=== PATIENT | male | born 1955 | race Caucasian/White ===

== ENCOUNTER 2021-09-10 13:59 | Inpatient (IN) ==
--- NOTE | 2021-09-10 14:20 | Emergency Department Note ---
Impression & Plan Anemia, Acute hyponatremia, Hypomagnesemia, Edema, peripheral ED Provider Note NAME: GUALBERTO LANDA AGE: 66 SEX: M : 1955 ARRIVES VIA: Ambulance INFORMANT: Patient, ED PROVIDER(S): Adam Ayon DO CHIEF COMPLAINT: Weight gain and shortness of breath HPI: The patient is a 66-year-old male who has a history of tobacco use as well as alcohol use who presented to the emergency department for an evaluation of difficulty breathing. The patient states that he has had similar symptoms in the past with weight gain and fluid on the lungs. He denies having any chest pain. He denies having any fever. He denies having any abdominal pain. He does have a history of alcohol use but states he is not drank much over the last 24 hours. He stopped smoking approximately 1 month ago. He denies having any fever or hemoptysis. He states his symptoms were moderate to severe and he had difficulty ambulating because of the severity of his weakness and his leg swelling. He states he also has some difficulty breathing with lying flat. ROS: See above HPI for pertinent positives & negatives. A total of 10 systems reviewed and were otherwise negative. PAST MEDICAL HISTORY: See Below PAST SURGICAL HISTORY: See Below FAMILY HISTORY: See Below SOCIAL HISTORY: See Below HOME MEDICATIONS: See Below ALLERGIES: See Below VITALS: See Below PHYSICAL EXAMINATION: GENERAL: Patient is awake alert in no acute distress patient is resting comfortably and showing no signs of anxiety EYES: The conjunctivae are clear. The pupils are round and reactive. EARS, NOSE, MOUTH AND THROAT: The nose is without any evidence of any deformity. NECK: The neck is nontender and supple. RESPIRATORY: Diminished breath sounds are noted both bases. There is no tachypnea or conversational dyspnea. CARDIOVASCULAR: Tachycardic rate with regular rhythm was noted. There is no definite murmur. mal S2. GASTROINTESTINAL: The abdomen is moderately distended. There is no tenderness guarding rigidity. MUSCULOSKELETAL/EXTREMITIES: There is no evidence of gross deformity full range of motion is noted in the hips and shoulders. SKIN: Chronic venous stasis changes were noted. Pedal edema was noted bilaterally. NEUROLOGIC: Patient is awake alert and oriented x3. Strength is diminished but symmetric. MEDICAL DECISION MAKING: Patient is a 66-year-old male who presented to the emergency department for an evaluation of generalized weakness. The patient reported weight gain and shortness of breath especially with any exertion. He does have a history of alcohol and tobacco use. He denies having any black or bloody bowel movements. I discussed the patient's laboratory and radiographic studies with him. I did discuss rectal exam with the patient. I felt that if he had a GI bleed this was something that should be diagnosed. He refused a rectal exam by me in the emergency department. He states he would notice if he had any rectal bleeding. The patient condition was discussed with the on-call [facility]. I did consent the patient for transfusion and I ordered the blood. Triage Nursing notes reviewed. Prior medical records reviewed Vital Signs: reviewed and remarkable for tachycardia. Differential diagnosis: Infection, dehydration, metabolic abnormality, hypo/hyperglycemia, electrolyte disturbance, anemia, hypoxia, cardiac sources, intracerebral event, toxicologic, neurologic, as well as other pathologies. ER treatment provided: See below Diagnostics interpreted by me: ECG: EKG was obtained in the emergency department. My interpretation is sinus tachycardia at 113 bpm. Low voltage was noted throughout. Nonspecific ST segment abnormalities were noted. No previous tracing was available for comparison. Cardiac Monitoring: An order was placed for continuous cardiac monitoring. The monitor shows a rate of 114 bpm with sinus tachycardia. Laboratory studies: As stated above and show below. Imaging studies: See below Consultation(s): I discussed this case with Dr. Agudelo who is on-call for the [facility] group. ED COURSE: Procedures: none PDMP:reviewed and no issues Critical Care: I have personally spent greater than 40 minutes of critical care time in the direct management of this patient. This includes bedside care, interpretation of diagnostic studies, and testing, discussion with consultants, patient, and family members, and other required patient management activities. This 40 minutes is in excess of all separately billable procedures. Past Med/Surg History Medical History CHF (congestive heart failure) Hypertension Surgical History History of appendectomy Social History Smoking Status: Former smoker Hx Alcohol Use: Yes Preferred Language: Senegalese Feels Safe at Home: Yes Allergies Allergies Allergy/AdvReac Type Severity Reaction Status Date / Time No Known Allergies Allergy Verified 09/10/21 16:01 Home Meds Home Medications Medication Instructions Recorded Confirmed Otc Nasal Decongestant 2 spry INTRANASAL DAILY PRN 09/10/21 09/10/21 amlodipine 10 mg-benazepril 40 mg 1 cap PO DAILY 09/10/21 09/10/21 capsule clonidine HCl 0.2 mg tablet 0.2 mg PO HS 09/10/21 09/10/21 cyclobenzaprine 10 mg tablet 10 mg PO TID 09/10/21 09/10/21 metoprolol tartrate 50 mg tablet 50 mg PO BID 09/10/21 09/10/21 pantoprazole 40 mg tablet,delayed 40 mg PO DAILY 09/10/21 09/10/21 release spironolactone 25 mg tablet 25 mg PO BID 09/10/21 09/10/21 Results & Data (ED) Vital Signs Vital Signs - 24 hr 09/10/21 13:47 09/10/21 14:09 09/10/21 14:18 Temperature 36.5 C Temperature Source Temporal Artery Scan Pulse Rate 117 H Pulse Rate from SpO2 Sensor Pulse Rhythm Regular Respiratory Rate 14 18 Respiratory Effort / Characteristics Non-Labored Respiratory Depth Normal Respiratory Pattern Regular Blood Pressure 116/65 Blood Pressure Mean 82 Pulse Oximetry 100 98 Oxygen Delivery Method Room Air Room Air Sepsis Recent Fever Within 48 Hours No Sepsis New/Unexplained Change in Mental Status No Sepsis Action Taken by Nursing No Action Required 09/10/21 14:30 09/10/21 15:00 Temperature Temperature Source Pulse Rate 116 H 114 H Pulse Rate from SpO2 Sensor 118 H 114 H Pulse Rhythm Respiratory Rate 20 14 Respiratory Effort / Characteristics Respiratory Depth Respiratory Pattern Blood Pressure 130/73 119/67 Blood Pressure Mean 92 84 Pulse Oximetry 99 99 Oxygen Delivery Method Room Air Sepsis Recent Fever Within 48 Hours Sepsis New/Unexplained Change in Mental Status Sepsis Action Taken by Usp Medications Current Medication List: was personally reviewed by me Laboratory Data Attestation: I reviewed the patient's lab results. Result diagrams: 09/10/21 14:00 09/10/21 14:00 Lab Results 09/10/21 09/10/21 09/10/21 Range/Units 14:00 14:00 14:00 WBC 10.22 (4.8-10.8) K/uL RBC 3.28 L (4.7-6.1) M/uL Hgb 5.8 L* (14.0-18.0) g/dL Hct 21.7 L (42-52) % MCV 66.2 L (80-100) fL MCH 17.7 L (25-34) pg MCHC 26.7 L (32-36) g/dL RDW Std Deviation 48.4 H (36.4-46.3) fL RDW Coeff of Priscilla 20.1 H (11.5-14.5) % Plt Count 341 (130-400) K/uL MPV 9.5 (7.4-10.4) fL Immature Gran % (Auto) 0.5 % Neut % (Auto) 79.8 % Lymph % (Auto) 9.5 % [place] % (Auto) 9.4 % Eos % (Auto) 0.5 % Baso % (Auto) 0.3 % Neut # (Auto) 8.16 H (1.4-6.5) K/uL Lymph # (Auto) 0.97 L (1.2-3.4) K/uL [place] # (Auto) 0.96 H (0.11-0.59) K/uL Eos # (Auto) 0.05 (0-0.5) K/uL Baso # (Auto) 0.03 (0-0.2) K/uL Immature Gran # (Auto) 0.05 H (0.00-0.02) K/uL Polychromasia 1+ Hypochromasia Present Microcytosis Present Ovalocytes 1+ PT 11.3 (9.0-12.0) Seconds INR 1.1 (0.9-1.1) APTT 22.2 (21.0-31.0) Seconds PTT Ratio 0.8 Sodium 123 L (136-145) mmol/L Potassium 5.1 (3.5-5.1) mmol/L Chloride 94 L (98-107) mmol/L Carbon Dioxide 18 L (21-32) mmol/L Anion Gap 11 (3-11) BUN 18 (6-23) mg/dl Creatinine 1.66 H (0.6-1.4) mg/dl Est Cr Clr Drug Dosing 70.1 ml/min Est GFR ( Amer) 49.0 ml/min Est GFR (Non-Af Amer) 42.3 ml/min BUN/Creatinine Ratio 10.8 (10-20) Glucose 102 H (70-99(Fasting)) mg/dl Osmolality (280-300) mOsm/kg Calcium 9.0 (8.5-10.1) mg/dl Magnesium 1.3 L (1.7-2.4) mg/dl Total Bilirubin 0.3 (0.2-1.0) mg/dl AST 19 (13-39) U/L ALT 11 (7-52) U/L Alkaline Phosphatase 97 (34-104) U/L Troponin I High Sens 6.6 (0-20) pg/ml Total Protein 7.5 (6.0-8.3) gm/dl Albumin 3.6 (3.4-5.0) gm/dl Globulin 3.9 (2.5-4.0) gm/dl Albumin/Globulin Ratio 0.9 (0.9-2) TSH (0.300-4.500) uIu/ml Ethyl Alcohol mg/dL (<10.0) mg/dl 09/10/21 09/10/21 09/10/21 Range/Units 14:00 14:00 14:00 WBC (4.8-10.8) K/uL RBC (4.7-6.1) M/uL Hgb (14.0-18.0) g/dL Hct (42-52) % MCV (80-100) fL MCH (25-34) pg MCHC (32-36) g/dL RDW Std Deviation (36.4-46.3) fL RDW Coeff of Priscilla (11.5-14.5) % Plt Count (130-400) K/uL MPV (7.4-10.4) fL Immature Gran % (Auto) % Neut % (Auto) % Lymph % (Auto) % [place] % (Auto) % Eos % (Auto) % Baso % (Auto) % Neut # (Auto) (1.4-6.5) K/uL Lymph # (Auto) (1.2-3.4) K/uL [place] # (Auto) (0.11-0.59) K/uL Eos # (Auto) (0-0.5) K/uL Baso # (Auto) (0-0.2) K/uL Immature Gran # (Auto) (0.00-0.02) K/uL Polychromasia Hypochromasia Microcytosis Ovalocytes PT (9.0-12.0) Seconds INR (0.9-1.1) APTT (21.0-31.0) Seconds PTT Ratio Sodium (136-145) mmol/L Potassium (3.5-5.1) mmol/L Chloride (98-107) mmol/L Carbon Dioxide (21-32) mmol/L Anion Gap (3-11) BUN (6-23) mg/dl Creatinine (0.6-1.4) mg/dl Est Cr Clr Drug Dosing ml/min Est GFR ( Amer) ml/min Est GFR (Non-Af Amer) ml/min BUN/Creatinine Ratio (10-20) Glucose (70-99(Fasting)) mg/dl Osmolality 268 L (280-300) mOsm/kg Calcium (8.5-10.1) mg/dl Magnesium (1.7-2.4) mg/dl Total Bilirubin (0.2-1.0) mg/dl AST (13-39) U/L ALT (7-52) U/L Alkaline Phosphatase (34-104) U/L Troponin I High Sens (0-20) pg/ml Total Protein (6.0-8.3) gm/dl Albumin (3.4-5.0) gm/dl Globulin (2.5-4.0) gm/dl Albumin/Globulin Ratio (0.9-2) TSH 2.881 (0.300-4.500) uIu/ml Ethyl Alcohol mg/dL < 10.0 (<10.0) mg/dl Administered Medications Discontinued Medications Thiamine HCl 200 mg/ Sodium (Chloride) 52 mls @ 208 mls/hr IV NOW STA Stop: 09/10/21 14:23 Last Infusion: 09/10/21 15:55 Dose: 0 mls/hr Documented by: [id number] Admin: 09/10/21 14:46 Dose: 208 mls/hr Documented by: [id number] Imaging Data Radiologist's Impression: Chest X-Ray 09/10/21 14:18 XR chest 1V portable HISTORY: weakness COMPARISON: None. FINDINGS: The lungs are clear. Cardiac silhouette is mildly enlarged. No pleural effusions. No pneumothorax. IMPRESSION: Mild cardiomegaly. Otherwise, no acute process within the chest. ACT 112: Negative or not required by law. Electronically signed by: Roel Rodrigez M.D. 09/10/2021 3:33 PM Discharge Plan Visit Data Chief Complaint: Weakness ED Provider: Adam Ayon Discharge Problem: Anemia, Acute hyponatremia, Hypomagnesemia, Edema, peripheral Patient Disposition: Being Evaluated by Hospitalist Forms Stand Alone Forms: My [facility] Prescriptions Prescriptions: No Action cyclobenzaprine 10 mg tablet 10 mg PO TID RF: 0 spironolactone 25 mg tablet 25 mg PO BID RF: 0 clonidine HCl 0.2 mg tablet 0.2 mg PO HS RF: 0 pantoprazole 40 mg tablet,delayed release (DR/EC) 40 mg PO DAILY RF: 0 metoprolol tartrate 50 mg tablet 50 mg PO BID RF: 0 amlodipine-benazepril 10-40 mg capsule 1 cap PO DAILY RF: 0 Otc Nasal Decongestant 2 spry intranasal DAILY PRN (Reason: Congestion) RF: 0 Referrals Referrals: Luis Felipe Briscoe [Primary Care Provider] -
[2021-09-10] MEDS ORDERED: THIAMINE HCL 200 MG in SODIUM CHLORIDE 0.9% 50 ML IV STA (14:22)
[2021-09-10 15:13] LABS: INR 1.1 (0.9-1.1); Partial Thromboplastin Ratio 0.8; Partial Thromboplastin Time 22.2 Seconds (21.0-31.0); Prothrombin Time 11.3 Seconds (9.0-12.0)
[2021-09-10 15:29] LABS: Albumin Globulin Ratio 0.9 (0.9-2); Albumin Level 3.6 gm/dl (3.4-5.0); BUN Creatinine Ratio 10.8 (10-20); Bilirubin,Total 0.3 mg/dl (0.2-1.0); Creatinine Clr Calc Pharmacy 70.1 ml/min; Est GFR (Non-African American) 42.3 ml/min; Globulin 3.9 gm/dl (2.5-4.0); Magnesium 1.3 mg/dl (1.7-2.4); Potassium 5.1 mmol/L (3.5-5.1); Total Protein 7.5 gm/dl (6.0-8.3)
[2021-09-10 15:33] LABS: Troponin I High Sensitivity 6.6 pg/ml (0-20)
--- NOTE | 2021-09-10 15:34 | XRay Report ---
XR chest 1V portable HISTORY: weakness COMPARISON: None. FINDINGS: The lungs are clear. Cardiac silhouette is mildly enlarged. No pleural effusions. No pneumo thorax. IMPRESSION: Mild cardiomegaly. Otherwise, no acute process within the chest. ACT 112: Negative or not required by law. Electronically signed by: Roel Rodrigez M.D. 09/10/2021 3:33 PM
[2021-09-10 15:39] LABS: Hematocrit (blood only) 21.7 % (42-52); Hemoglobin 5.8 g/dL (14.0-18.0); Mean Corpuscular Hemoglobin 17.7 pg (25-34); Mean Corpuscular Hgb Conc 26.7 g/dL (32-36); Mean Corpuscular Volume 66.2 fL (80-100); Mean Platelet Volume 9.5 fL (7.4-10.4); Platelet Count 341 K/uL (130-400); RDW Coefficient of Variation 20.1 % (11.5-14.5); RDW Standard Deviation 48.4 fL (36.4-46.3); Red Blood Count 3.28 M/uL (4.7-6.1); White Blood Count 10.22 K/uL (4.8-10.8)
[2021-09-10 15:45] LABS: Basophils # (auto) 0.03 K/uL (0-0.2); Basophils % (auto) 0.3 %; Eosinophils # (auto) 0.05 K/uL (0-0.5); Eosinophils % (auto) 0.5 %; Hypochromasia Present; Immature Granulocytes # (auto) 0.05 K/uL (0.00-0.02); Immature Granulocytes % (auto) 0.5 %; Lymphocytes # (auto) 0.97 K/uL (1.2-3.4); Lymphocytes % (auto) 9.5 %; Microcytosis Present; Monocytes # (auto) 0.96 K/uL (0.11-0.59); Monocytes % (auto) 9.4 %; Neutrophils # (auto) 8.16 K/uL (1.4-6.5); Neutrophils % (auto) 79.8 %; Ovalocytes 1+; Polychromasia 1+
[2021-09-10] MEDS ORDERED: SODIUM CHLORIDE 0.9% 250 ML IV PRN (15:45)
[2021-09-10] MEDS ORDERED: PANTOprazole 40 MG in SYRINGE 0 ML IV ONE (16:03)
[2021-09-10] MEDS ORDERED: FAMOTIDINE 20MG IV PUSH 20 MG/5 ML SYR IV STA (16:03)
[2021-09-10] MEDS: MAGNESIUM SULFATE / D5W 1 GM/100 ML BAG IV SCH ×2 (16:27→17:49)
[2021-09-10] MEDS ORDERED: MAGNESIUM SULFATE / D5W 1 GM/100 ML BAG IV STA (16:36)
[2021-09-10] MEDS ORDERED: FUROSEMIDE INJ 20 MG/2 ML VIAL IV ONE ×2 (16:40→23:48)
--- NOTE | 2021-09-10 17:03 | History & Physical Report ---
Date of Service September 10, 2021 Assessment & Plan (1) Anemia: Plan: Microcytic anemia with MCV 66 DDX: Chronic microcytic anemia secondary to gastritis vs. GI mass vs. other occult GI bleeding versus poor absorption or poor nutrition - CTA of the abdomen and pelvis pending- evaluate for bleeding or mass - BUN normal and without upper GI symptoms endorsed - Continue with Protonix IV BID 40mg - Iron panel pending - Transfuse 2 units of PRBC now- follow hemoglobin and hemodynamics - Diurese in between units and likely need more diuresing tomorrow - Will likely need iron transfusion in the morning following blood - GI consultation for evaluation of EGD/Colonoscopy as he has not had screening done - Currently BP stable and well perfused but is tachycardic (2) Acute hyponatremia: Plan: NA 123 with serum osmo 268 - Mildly symptomatic - Normal TSH - with his lower extremity edema- likely related to hypervolemic hyponatremia - will diurese with 20mg IV Lasix with blood and likely need to repeat in the am - Free water restrict to 1L iter overnight- patient reports that he drinks ~2 liters through the day - Possibly related to ETOH use as well - follow with BMP q 4 hours -Check urine sodium and urine osmolality (3) Hypomagnesemia: Plan: Likely related to poor nutritional intake as well as his low iron levels - replete magnesium 3 gm - follow (4) CHF (congestive heart failure): Plan: Unsure of type as patient is without records and no recall - ECHO in am - Continue his BB- metoprolol 50mg PO twice daily - Hold CCB and PATSY - Continue spironolactone - Lasix as above (5) Stage 3a chronic kidney disease (CKD): Plan: Unsure of chronicity - follow renal function with above resuscitation and diuretic use - HCO3 16 but without an acidosis and without gap- follow HCO3 in am (6) Venous stasis: Plan: Chronic with venous stasis ulcerations of bilateral lower extremities - diurese as above (7) Withdrawal syndrome: Plan: Patient with tachycardia, hyponatremia, and tremors - ETOH level <10 - Although he has reasons to explain majority of these will add CIWA coverage with Ativan for score >6 - Continue with Thiamine and Folate (8) Morbid obesity: Plan: Walks with walker- this is greatly increasing his overall cardiac mortality - weight loss management and education - following his GI evaluation and his overall reported reduced intake- nutritional consolation would be appropriate History of Present Illness Primary Care Provider: Luis Felipe Briscoe 66 yom with no PCP and has not had medical care in over 4 years. Patient with medical history of, HF, ascites with paracentesis, anemia, morbid obesity, ambulates with walker. Patient comes to the emergency department today via EMS for concerns of increase in dyspnea, tremors, and feeling overtly weak. The patient endorses that this has been ongoing over the past 3 days. In the EMD the patient had routine labs performed, CXR, ECG. His labs revealed HGB of 5.8 with microcytosis, normal LFTs, normal INR, hypomag, hyponatremia, and low HC03. He was type and crossed and consented for blood by EMD with 2 units to transfuse, given thiamine, some magnesium and Protonix. Hospitalist was consulted for admission. Patient is tachycardic with visible hand tremors, he states that drinks 2-3 drinks most nights, but has gone days before without any and has not had any problems with withdraw. The patient endorses that he has not had any diarrhea or dark bowel movements, denies any nausea or vomiting of blood. He does have a decrease in appetite over the past 2 weeks secondary to food not tasting good and feeling tired while eating. He states that he has only been eating once per day. The patient will be admitted to PCU, will send off iron panel and Folate levels, continue with 2-3 units of PRBC transfusion overnight. Will diurese with 20mg of Lasix and FREE WATER restrict the patient overnight for his hyponatremia which appears to be hypervolemic hyponatremia at this time. He has not voided so urine labs are pending and he declines rectal exam. Will obtain CTA of the abdomen and pelvis and evaluate for occult bleeding and/or mass. He has never had an EGD and again declines any colonoscopy discussion. Patient COVID test on admission is: NEGATIVE Allergies Allergy/AdvReac Type Severity Reaction Status Date / Time No Known Allergies Allergy Verified 09/10/21 16:01 Home Medications Medication Instructions Recorded Confirmed Type Otc Nasal Decongestant 2 spry INTRANASAL DAILY PRN 09/10/21 09/10/21 History amlodipine 10 mg-benazepril 40 mg 1 cap PO DAILY 09/10/21 09/10/21 History capsule clonidine HCl 0.2 mg tablet 0.2 mg PO HS 09/10/21 09/10/21 History cyclobenzaprine 10 mg tablet 10 mg PO TID 09/10/21 09/10/21 History metoprolol tartrate 50 mg tablet 50 mg PO BID 09/10/21 09/10/21 History pantoprazole 40 mg tablet,delayed 40 mg PO DAILY 09/10/21 09/10/21 History release spironolactone 25 mg tablet 25 mg PO BID 09/10/21 09/10/21 History Past Med/Surg History Medical History (Updated 09/10/21 @ 17:54 by LEOBARDO Macias) Ascites CHF (congestive heart failure) Hypertension Obesity Transfusion history Surgical History History of appendectomy Family History Other Family history non-contributory Social History Smoking Status: Former smoker Hx Alcohol Use: Yes Preferred Language: Azeri Feels Safe at Home: Yes Review of Systems Review of Systems: REVIEW OF SYSTEMS: Constitutional: No fever, sweats or chills Eyes: No diplopia, no worsening or blurred vision ENT: normal hearing, no trouble swallowing Respiratory:(+) dyspnea at rest or on exertion, No cough, sputum, Cardiovascular: No chest pain, tightness or palpitations Abdomen: No pain, nausea, vomiting, diarrhea or constipation Musculoskeletal: No joint pain, calf pain, swelling Neurologic: (+) chronic walks with walker weakness, numbness/tingling, or balance problems Psychiatric: No anxiety or depression Skin: No rash or itch Physical Exam Physical Exam: PHYSICAL EXAM: General: awake, alert, no apparent distress Head: Normocephalic, atraumatic ENT: PERRLA, EOMI, no pharyngeal exudate, mucous membranes moist, conjunctiva pale Neuro: AAO x 3, speech clear and appropriate, strength intact bilaterally 5/5, sensation intact and equal all extremities and dermatomes, no pronator drift Chest: equal rise and fall of the chest, no accessory muscle use, difficult assessment secondary to body habitus, moving good air throughout Cardiac: Regular and rhythm, telemetry reviewed- sinus tach without ectopy, skin warm dry, cap refill <3 seconds, peripheral pulses +2 no JVD, no murmur, + 3 edema to feet and ankles GI: NABS x 4 quadrants, soft, tender to palpation around liver, no rebound, guarding or tenderness no epigastric pain : Spontaneously voiding, no pain, no CVA tenderness, Psych: Normal mood and affect Skin: no rash or erythema Results & Data Results & Data ([facility]) Vital Signs (Past 12 Hours) Vital Signs Temp Pulse Resp BP Pulse Ox 09/10/21 15:00 114 H 14 119/67 99 09/10/21 14:30 116 H 20 130/73 99 09/10/21 14:18 98 09/10/21 14:09 18 09/10/21 13:47 36.5 C 117 H 14 116/65 100 Laboratory Results Abnormal lab results 09/10/21 09/10/21 09/10/21 Range/Units 14:00 14:00 14:00 RBC 3.28 L (4.7-6.1) M/uL Hgb 5.8 L* (14.0-18.0) g/dL Hct 21.7 L (42-52) % MCV 66.2 L (80-100) fL MCH 17.7 L (25-34) pg MCHC 26.7 L (32-36) g/dL RDW Std Deviation 48.4 H (36.4-46.3) fL RDW Coeff of Priscilla 20.1 H (11.5-14.5) % Neut # (Auto) 8.16 H (1.4-6.5) K/uL Lymph # (Auto) 0.97 L (1.2-3.4) K/uL [place] # (Auto) 0.96 H (0.11-0.59) K/uL Immature Gran # (Auto) 0.05 H (0.00-0.02) K/uL Sodium 123 L (136-145) mmol/L Chloride 94 L (98-107) mmol/L Carbon Dioxide 18 L (21-32) mmol/L Creatinine 1.66 H (0.6-1.4) mg/dl Glucose 102 H (70-99(Fasting)) mg/dl Osmolality 268 L (280-300) mOsm/kg Magnesium 1.3 L (1.7-2.4) mg/dl Iron (35-175) mcg/dl TIBC (250-450) mcg/dl Unsaturated IBC (155-355) mcg/dl Transferrin % Sat (20-50) % Crossmatch 09/10/21 09/10/21 Range/Units 14:00 16:33 RBC (4.7-6.1) M/uL Hgb (14.0-18.0) g/dL Hct (42-52) % MCV (80-100) fL MCH (25-34) pg MCHC (32-36) g/dL RDW Std Deviation (36.4-46.3) fL RDW Coeff of Priscilla (11.5-14.5) % Neut # (Auto) (1.4-6.5) K/uL Lymph # (Auto) (1.2-3.4) K/uL [place] # (Auto) (0.11-0.59) K/uL Immature Gran # (Auto) (0.00-0.02) K/uL Sodium (136-145) mmol/L Chloride (98-107) mmol/L Carbon Dioxide (21-32) mmol/L Creatinine (0.6-1.4) mg/dl Glucose (70-99(Fasting)) mg/dl Osmolality (280-300) mOsm/kg Magnesium (1.7-2.4) mg/dl Iron 19 L (35-175) mcg/dl TIBC 581 H (250-450) mcg/dl Unsaturated IBC 562 H (155-355) mcg/dl Transferrin % Sat 3 L (20-50) % Crossmatch See Detail Diagnostic Findings Chest X-Ray 09/10/21 14:18 XR chest 1V portable HISTORY: weakness COMPARISON: None. FINDINGS: The lungs are clear. Cardiac silhouette is mildly enlarged. No pleural effusions. No pneumothorax. IMPRESSION: Mild cardiomegaly. Otherwise, no acute process within the chest. ACT 112: Negative or not required by law. Electronically signed by: Roel Rodrigez M.D. 09/10/2021 3:33 PM Medications Administered Discontinued Medications Thiamine HCl 200 mg/ Sodium (Chloride) 52 mls @ 208 mls/hr IV NOW STA Stop: 09/10/21 14:23 Last Infusion: 09/10/21 15:55 Dose: 0 mls/hr Documented by: [id number] Admin: 09/10/21 14:46 Dose: 208 mls/hr Documented by: [id number] Magnesium Sulfate/Dextrose (Magnesium Sulfate / D5w) 1 gm in 100 mls @ 100 mls/hr IV Q1H KHOI Stop: 09/10/21 17:31 Last Admin: 09/10/21 16:27 Dose: 100 mls/hr Documented by: [id number] Famotidine (Pepcid 20mg Iv Push) 20 mg in 5 mls @ 2.5 mls/min IV NOW STA Stop: 09/10/21 16:04 Last Admin: 09/10/21 16:27 Dose: 2.5 mls/min Documented by: [id number] Home Medications Otc Nasal Decongestant 2 spry INTRANASAL DAILY PRN 09/10/21 [History Confirmed 09/10/21] amlodipine 10 mg-benazepril 40 mg capsule 1 cap PO DAILY 09/10/21 [History Confirmed 09/10/21] clonidine HCl 0.2 mg tablet 0.2 mg PO HS 09/10/21 [History Confirmed 09/10/21] cyclobenzaprine 10 mg tablet 10 mg PO TID 09/10/21 [History Confirmed 09/10/21] metoprolol tartrate 50 mg tablet 50 mg PO BID 09/10/21 [History Confirmed 09/10/21] pantoprazole 40 mg tablet,delayed release 40 mg PO DAILY 09/10/21 [History Confirmed 09/10/21] spironolactone 25 mg tablet 25 mg PO BID 09/10/21 [History Confirmed 09/10/21] Active Medications Sodium Chloride (Nss) 250 mls @ 15 mls/hr IV .[id number] PRN PRN Reason: For Transfusion Stop: 09/11/21 01:46 Magnesium Sulfate/Dextrose (Magnesium Sulfate / D5w) 1 gm in 100 mls @ 50 mls/hr IV Q2H STA Stop: 09/10/21 18:35 ECG Additional Comments: Sinus tachycardia with 1st degree A-V block Otherwise normal ECG No previous ECGs available Code Status & VTE Plan Code Status CODE: FULL VTE: SCDS, hold chemoprophylaxis until bleeding rulled out VTE Prophylaxis Plan VTE Prophylaxis will be ordered: Yes Supervising Physician Co-Signing Physician Notes [employer] Supervision note: I have personally seen and examined the patient and discussed and verified the ward points of the history and physical along with the plan with LEOBARDO Gauthier with the following exceptions and/or additions: This patient is a 66-year-old male with history of HTN, alcohol use disorder, ascites, CHF of unknown type, morbid obesity, who presents here with worsening weakness and shortness of breath and shakiness. He was found have a hemoglobin of 5.8. He reports he has had transfusions in the past and had ascites removed with diuretics and paracentesis. He reports in the past he lost 100 pounds of fluid weight several years ago during hospitalization. He reports he has been told he has liver problems since the 1980s. History ROS reviewed as above Vitals reviewed Gen: [AAOx3, NAD, morbidly obese HEENT: Anicteric sclerae, EOMI CV: Regular rhythm, tachycardic, no mgr nl S1S2 Pulm: CTAB no wcr Abd: +BS soft NT ND positive hepatomegaly to 4 inches below the costal margin, no hernias Ext: 2+ pitting edema in the legs bilaterally, 2+ DP pulses Skin: Spider angiomas all over trunk, warm/dry Neuro: Full strength throughout Labs and rads reviewed 66-year-old male here with severe symptomatic anemia Transfuse GI evaluation Watch for alcohol withdrawal and treat with lorazepam as needed Also with significant volume overload thought to be secondary to either CHF or cirrhosis-diuresed With a hyponatremia also likely secondary to volume overload PG Care Time/CCT Total # of Minutes Spent Total Time Spent with Patient: Total time spent is greater than 50% in coordination of care (as documented) at patient's floor/unit and/or counseling patient: Coding Level of Care Code 83477 Initial Inpt Care Lvl 3 Diagnoses Anemia D64.9 Anemia type: unspecified type Acute hyponatremia E87.1 Hypomagnesemia E83.42 CHF (congestive heart failure) I50.9 Stage 3a chronic kidney disease (CKD) N18.31 Withdrawal syndrome F19.239 Morbid obesity E66.01 Venous stasis I87.8 (1) Anemia Anemia type: unspecified type Qualified Code(s): D64.9 - Anemia, unspecified
[2021-09-10 17:13] LABS: Iron 19 mcg/dl (35-175); Total Iron Binding Cap Calc 581 mcg/dl (250-450); Transferrin (FE) Percent Satur 3 % (20-50); Unsaturated Iron Binding Cap 562 mcg/dl (155-355)
[2021-09-10 17:31] LABS: Base Excess VBG -4.4 mEq/L; pH VBG 7.4 (7.36-7.41)
[2021-09-10 18:11] LABS: Appearance Urine Clear (Clear); Bilirubin Urine Negative (Negative); Blood Urine Negative (Negative); Color Urine Yellow; Glucose Urine UA Negative (Negative); Ketones Urine Negative (Negative); Leukocyte Esterase Urine Negative (Negative); Nitrite Urine Negative (Negative); Protein Urine Negative (Negative); Specific Gravity Urine 1.008 (1.000-1.030); Urobilinogen Urine Negative (Negative); pH Urine 5.5 (4.5-7.5)
[2021-09-10] MEDS ORDERED: ONDANSETRON INJ 2 MG/ML 2 ML VIAL IV PRN (20:09)
[2021-09-10] MEDS ORDERED: LORazepam 2 MG/1 ML VIAL IV PRN ×4 (20:09)
[2021-09-10] MEDS ORDERED: ATIVAN IV ALCOHOL WITHDRAWL IV PRN (20:09)
[2021-09-10] MEDS: SPIRONOLACTONE 25 MG TAB PO SCH (21:20)
[2021-09-10] MEDS: CYCLOBENZAPRINE HCL 10 MG TAB PO SCH ×2 (21:21→21:28)
[2021-09-10] MEDS: METOPROLOL TARTRATE 50 MG TAB PO SCH (21:22)
[2021-09-10] MEDS: PANTOprazole 40 MG in SYRINGE 0 ML IV SCH (21:33)
[2021-09-10] MEDS: CYCLOBENZAPRINE HCL 5 MG TAB PO SCH (22:37)
[2021-09-10] MEDS ORDERED: ACETAMINOPHEN 500 MG TAB PO STA (23:03)
[2021-09-10] MEDS ORDERED: OPTIRAY 320 125ml IV ONE (23:22)
[2021-09-11 00:56] LABS: Hemoglobin 6.2 g/dL (14.0-18.0)
[2021-09-11 01:20] LABS: BUN Creatinine Ratio 10.7 (10-20); Calcium 8.9 mg/dl (8.5-10.1); Est GFR (African American) 55.9 ml/min; Est GFR (Non-African American) 48.2 ml/min; Potassium 5.4 mmol/L (3.5-5.1)
[2021-09-11 06:57] LABS: Hematocrit (blood only) 23.6 % (42-52); Hemoglobin 6.9 g/dL (14.0-18.0); Mean Corpuscular Hemoglobin 20.1 pg (25-34); Mean Corpuscular Hgb Conc 29.2 g/dL (32-36); Mean Corpuscular Volume 68.6 fL (80-100); Mean Platelet Volume 8.9 fL (7.4-10.4); Nucleated RBC # (auto) 0.02 K/uL (0-0); Nucleated RBC % (auto) 0.3 %; Platelet Count 262 K/uL (130-400); RDW Coefficient of Variation 22.7 % (11.5-14.5); RDW Standard Deviation 56.9 fL (36.4-46.3); Red Blood Count 3.44 M/uL (4.7-6.1); White Blood Count 7.15 K/uL (4.8-10.8)
[2021-09-11 07:07] LABS: Albumin Level 3.3 gm/dl (3.4-5.0); BUN Creatinine Ratio 10.1 (10-20); Bilirubin Direct 0.2 mg/dl (0-0.2); Bilirubin,Total 0.9 mg/dl (0.2-1.0); Calcium 8.8 mg/dl (8.5-10.1); Creatinine Clr Calc Pharmacy 75.6 ml/min; Est GFR (African American) 55.9 ml/min; Est GFR (Non-African American) 48.2 ml/min; Potassium 4.9 mmol/L (3.5-5.1); Total Protein 6.6 gm/dl (6.0-8.3)
[2021-09-11 07:20] LABS: Basophils # (auto) 0.02 K/uL (0-0.2); Basophils % (auto) 0.3 %; Eosinophils # (auto) 0.02 K/uL (0-0.5); Eosinophils % (auto) 0.3 %; Hypochromasia Present; Immature Granulocytes # (auto) 0.03 K/uL (0.00-0.02); Immature Granulocytes % (auto) 0.4 %; Lymphocytes # (auto) 0.83 K/uL (1.2-3.4); Lymphocytes % (auto) 11.6 %; Microcytosis Present; Monocytes % (auto) 11.2 %; Neutrophils # (auto) 5.45 K/uL (1.4-6.5); Neutrophils % (auto) 76.2 %
[2021-09-11] MEDS ORDERED: SODIUM CHLORIDE 0.9% 250 ML IV PRN (07:26)
[2021-09-11 08:03] LABS: Hematocrit (blood only) 25.5 % (42-52); Hemoglobin 7.5 g/dL (14.0-18.0)
[2021-09-11 08:26] LABS: BUN Creatinine Ratio 10.5 (10-20); Creatinine Clr Calc Pharmacy 78.8 ml/min; Est GFR (African American) 58.7 ml/min; Est GFR (Non-African American) 50.7 ml/min; Potassium 4.8 mmol/L (3.5-5.1)
[2021-09-11] MEDS: CYCLOBENZAPRINE HCL 5 MG TAB PO SCH ×3 (08:45→21:39)
[2021-09-11] MEDS: FOLIC ACID 1 MG TAB PO SCH (08:46)
[2021-09-11] MEDS: METOPROLOL TARTRATE 50 MG TAB PO SCH ×2 (08:47→21:39)
[2021-09-11] MEDS: PANTOprazole 40 MG in SYRINGE 0 ML IV SCH ×2 (08:48→21:39)
[2021-09-11] MEDS: SPIRONOLACTONE 25 MG TAB PO SCH ×2 (08:48→16:42)
[2021-09-11] MEDS: FUROSEMIDE INJ 20 MG/2 ML VIAL IV SCH ×2 (09:01→16:42)
[2021-09-11] MEDS: THIAMINE HCL 300 MG in SODIUM CHLORIDE 0.9% 50 ML IV SCH (09:01)
--- NOTE | 2021-09-11 09:17 | CT Scan Report ---
CT angio abdomen pelvis w con HISTORY: eval for abdominal/rectal mass-GI bleed TECHNIQUE: Multiaxial CT images of the abdomen and pelvis were performed on the intravenous administr ation of 120 cc of Optiray 320 to evaluate the major arterial structures. Maximal intensity projectio n images were also obtained. COMPARISON STUDY: None. FINDINGS: Mild dependent changes seen at the lung bases. No pneumoperitoneum. No pneumatosis. Advance d degenerative changes within the lumbar spine. Mild anterior wedging at L1 may be due to the Schmorl 's nodes or a chronic compression deformity. No acute fractures identified within the visualized osse ous structures. There are old, healed left-sided rib fractures. Suboptimal evaluation of the abdomen and pelvis due to the patient's body habitus and artifact from the right side of the abdomen abutting the gantry. Subtle nodular contour to the liver consistent with mild cirrhosis. There are few small gallstones. No gallbladder wall thickening. The pancreas, spleen, and right adrenal gland are unremar kable. Mild nodular thickening of the left adrenal gland is noted. Mild cortical scarring within the kidneys. No hydronephrosis. There are 2 subcentimeter exophytic hypodense lesion within the lower herrera e of the left kidney with the largest measuring 9 mm. These are technically too small to characterize but statistically represent cysts. No retroperitoneal lymphadenopathy. No pelvic lymphadenopathy. Th e bladder is unremarkable. No pelvic free fluid. No perirectal abscess identified. Colonic diverticul osis. No evidence for acute diverticulitis. No bowel wall thickening or obstruction. The appendix is not identified and likely surgically absent. Mild calcified plaque within the abdominal aorta. No evidence for an abdominal aortic aneurysm or dis section. The iliac and common femoral arteries are patent. Calcified plaque at the origins of the shalonda iac and superior mesenteric arteries without significant stenosis. The inferior mesenteric artery and renal arteries appear patent. There are 2 left renal arteries. IMPRESSION: 1. No bowel wall thickening or obstruction. 2. Colonic diverticulosis. No evidence for acute diverticulitis. 3. No evidence for rectal mass. However, colonoscopy is considered the test of choice if there is con cern for a colorectal lesion. 4. No significant stenosis or occlusion within the aorta, iliac arteries, or major mesenteric vessels . 5. Cirrhotic liver. 6. Cholelithiasis. ACT 112: Negative or not required by law. Electronically signed by: Roel Rodrigez M.D. 09/11/2021 9:16 AM
[2021-09-11] MEDS: ACETAMINOPHEN 325 MG TAB PO PRN ×2 (09:33→16:48)
--- NOTE | 2021-09-11 10:33 | Hospitalist Progress Note ---
Date of Service September 11, 2021 Assessment & Plan (1) Anemia: Plan: This patient is a 66-year-old male with history of HTN, alcohol use disorder, ascites, CHF of unknown type, morbid obesity, who presents here with worsening weakness and shortness of breath and shakiness. He was found have a hemoglobin of 5.8. He reports he has had transfusions in the past and had ascites removed with diuretics and paracentesis at [facility] in 2018. He reports in the past he lost 100 pounds of fluid weight several years ago during that same hospitalization. He reports he has been told he has liver problems since the 1980s. Microcytic anemia with MCV 66, with severe iron deficiency noted on iron studies Iron deficiency anemia secondary to gastritis vs. GI mass vs. other occult GI bleeding versus poor absorption or poor nutrition He denies any melena or hematochezia, no hematuria, no hematemesis or epistaxis. He has never been to this hospital so there are no baseline labs to compare to. CTA of the abdomen and pelvis to evaluate for bleeding or mass is negative BUN normal and without upper GI symptoms endorsed Hemoglobin up to 6.9 after 2 units PRBCs. Still with some mild tachycardia. -Continue with Protonix IV BID 40mg -Transfuse 1 more unit of PRBC today -Give IV Venofer tomorrow morning -Continue to diurese with IV Lasix twice daily today -Okay to advance to clear liquids for today and then n.p.o. after midnight with plan for EGD tomorrow as per my discussion with GI -Patient is refusing colonoscopy (2) Acute hyponatremia: Plan: NA 123 with serum osmo 268 Urine osmolality elevated at 220, urine sodium 47 but is on spironolactone - Mildly symptomatic - Normal TSH -Cortisol not checked but he was hypertensive on arrival so doubt adrenal insufficiency With high urine osmolality and likely falsely high urine sodium, clearly volume overloaded on examination-all points towards decreased effective arterial volume from either hypovolemia from severe anemia plus cirrhosis Sodium improving up to 126 with IV Lasix and PRBC transfusion -Continue Lasix 20 mg IV twice daily -Free water restrict to 1L iter overnight- patient reports that he drinks ~2 liters through the day -Follow BMP in the morning (3) Hypomagnesemia: Plan: Likely related to poor nutritional intake Replaced with 3 g of IV magnesium on admission Follow magnesium level in the morning (4) CHF (congestive heart failure): Plan: Patient reports a history of such. Echocardiogram here with preserved EF He has chronic HFpEF He is clearly volume overloaded on exam Continue blood pressure control with his home metoprolol 50mg PO twice daily - Continue spironolactone - Lasix as above -Continue to hold his home amlodipine/benazepril, clonidine -Daily weights, I's and O's, follow urine output-has Bae catheter in place due to elevated creatinine (5) Stage 3a chronic kidney disease (CKD): Plan: Unsure of chronicity. Creatinine elevated at 1.6 on admission Suspect acute kidney injury in the setting of hypovolemia/prerenal Is now improved to 1.4 after PRBC transfusion and diuretics, also held home benazepril - follow renal function with above resuscitation and diuretic use - HCO3 18 on admission but without an acidosis and without anion gap--serum bicarbonate now normal (6) Venous stasis: Plan: Chronic with venous stasis ulcerations of bilateral lower extremities - diurese as above (7) Withdrawal syndrome: Plan: Patient with tachycardia, hyponatremia, and tremors on admission He reports drinking 2-3 mixed drinks daily - ETOH level <10 on arrival - Although he has reasons to explain majority of these will add CIWA coverage with Ativan for score >6 - Continue with Thiamine and Folate although folate level checked and was normal (8) Morbid obesity: Plan: Walks with walker this is greatly increasing his overall cardiac mortality - weight loss management and education - following his GI evaluation and his overall reported reduced intake- nutrition consultation would be appropriate (9) Cirrhosis: Plan: Noted to have cirrhotic appearing liver on CT abdomen/pelvis He reports being told he had elevated liver enzymes for many decades, however his LFTs here are normal, platelet count is normal, and INR is normal indicating normal synthetic function of the liver Advised to stop drinking alcohol -Follow-up with GI after discharge -Limit Tylenol use to no more than 2000 mg in a day Plan: DVT prophylaxis-avoid chemical prophylaxis due to severe anemia and possibility of GI bleeding. Continue SCDs Disposition-continued stay on telemetry unit due to electrolyte abnormalities and severe anemia Admission and Anticipated Discharge Date Admission Date: September 10, 2021 Subjective Patient reports having headache this morning requesting Tylenol. He is not sure if he feels much stronger as he has not yet been out of bed today. He received 2 units of PRBCs overnight and is getting 1/3 unit today. He denies any bowel movements or blood in the stool. No abdominal pains or nausea. No chest pains. Telemetry with normal sinus rhythm and sinus tachycardia with rates in the 90s to 100s Review of Systems Review of Systems: All systems reviewed & are unremarkable except as noted in HPI & below Physical Exam Physical Exam: Vitals reviewed Gen: AAOx3, NAD, morbidly obese HEENT: Anicteric sclerae, EOMI CV: Regular rhythm, normal rate, no mgr nl S1S2 Pulm: CTAB no wcr Abd: +BS soft NT ND positive hepatomegaly to 4 inches below the costal margin, no hernias Ext: 2+ pitting edema in the legs bilaterally, 2+ DP pulses Skin: Spider angiomas all over trunk, warm/dry Neuro: Full strength throughout -Bae catheter in place draining clear yellow urine Results & Data Results & Data ([facility]) Vital Signs (Past 12 Hours) Vital Signs Temp Pulse Pulse Resp BP BP Pulse Ox 09/11/21 09:40 36.9 C 81 14 172/79 H 97 09/11/21 09:10 36.3 C L 87 16 164/91 H 97 09/11/21 08:55 36.6 C 88 16 164/99 H 96 09/11/21 08:53 36.5 C 92 H 14 168/107 H 98 09/11/21 08:26 36.5 C 94 H 148/89 H 98 09/11/21 07:52 36.6 C 90 18 126/78 98 09/11/21 04:25 88 09/11/21 03:58 36.7 C 88 20 136/72 95 09/11/21 03:36 36.5 C 90 18 143/86 H 98 09/11/21 03:35 36.5 C 90 18 143/86 H 98 09/11/21 02:50 36.8 C 86 18 136/86 97 09/11/21 01:50 36.8 C 85 18 106/71 96 09/11/21 01:20 36.8 C 88 18 123/78 95 09/11/21 01:05 36.9 C 88 18 128/82 97 09/11/21 00:46 36.9 C 94 H 18 118/73 94 09/11/21 00:00 99 H 161/64 H 09/10/21 22:48 36.5 C 88 18 128/72 98 09/10/21 22:47 36.4 C L 88 18 128/72 98 Laboratory Results 09/11/21 09/11/21 09/11/21 Range/Units 07:45 07:45 07:19 WBC (4.8-10.8) K/uL RBC (4.7-6.1) M/uL Hgb 7.5 L (14.0-18.0) g/dL Hct 25.5 L (42-52) % MCV (80-100) fL MCH (25-34) pg MCHC (32-36) g/dL RDW Std Deviation (36.4-46.3) fL RDW Coeff of Priscilla (11.5-14.5) % Plt Count (130-400) K/uL MPV (7.4-10.4) fL Immature Gran % (Auto) % Neut % (Auto) % Lymph % (Auto) % [place] % (Auto) % Eos % (Auto) % Baso % (Auto) % Neut # (Auto) (1.4-6.5) K/uL Lymph # (Auto) (1.2-3.4) K/uL [place] # (Auto) (0.11-0.59) K/uL Eos # (Auto) (0-0.5) K/uL Baso # (Auto) (0-0.2) K/uL Immature Gran # (Auto) (0.00-0.02) K/uL Absolute Nucleated RBC (0-0) K/uL Nucleated RBC % (auto) % Hypochromasia Microcytosis Sodium 126 L (136-145) mmol/L Potassium 4.8 (3.5-5.1) mmol/L Chloride 97 L (98-107) mmol/L Carbon Dioxide 22 (21-32) mmol/L Anion Gap 7 (3-11) BUN 15 (6-23) mg/dl Creatinine 1.43 H (0.6-1.4) mg/dl Est Cr Clr Drug Dosing 78.8 ml/min Est GFR ( Amer) 58.7 ml/min Est GFR (Non-Af Amer) 50.7 ml/min BUN/Creatinine Ratio 10.5 (10-20) Glucose 94 (70-99(Fasting)) mg/dl POC Glucose 109 H (70-99) mg/dl Calcium 9.0 (8.5-10.1) mg/dl Total Bilirubin (0.2-1.0) mg/dl Direct Bilirubin (0-0.2) mg/dl AST (13-39) U/L ALT (7-52) U/L Alkaline Phosphatase (34-104) U/L Total Protein (6.0-8.3) gm/dl Albumin (3.4-5.0) gm/dl Folate (>5.38) ng/ml Urine Color Urine Appearance (Clear) Urine pH (4.5-7.5) Ur Specific [place] (1.000-1.030) Urine Protein (Negative) Urine Glucose (UA) (Negative) Urine Ketones (Negative) Urine Blood (Negative) Urine Nitrite (Negative) Urine Bilirubin (Negative) Urine Urobilinogen (Negative) Ur Leukocyte Esterase (Negative) Urine Osmolality (500-800) mOsm/kg Ur Random Sodium mmol/L Blood Type Antibody Screen Crossmatch 09/11/21 09/11/21 09/11/21 Range/Units 06:04 06:04 06:04 WBC 7.15 (4.8-10.8) K/uL RBC 3.44 L (4.7-6.1) M/uL Hgb 6.9 L* (14.0-18.0) g/dL Hct 23.6 L (42-52) % MCV 68.6 L (80-100) fL MCH 20.1 L (25-34) pg MCHC 29.2 L (32-36) g/dL RDW Std Deviation 56.9 H (36.4-46.3) fL RDW Coeff of Priscilla 22.7 H (11.5-14.5) % Plt Count 262 (130-400) K/uL MPV 8.9 (7.4-10.4) fL Immature Gran % (Auto) 0.4 % Neut % (Auto) 76.2 % Lymph % (Auto) 11.6 % [place] % (Auto) 11.2 % Eos % (Auto) 0.3 % Baso % (Auto) 0.3 % Neut # (Auto) 5.45 (1.4-6.5) K/uL Lymph # (Auto) 0.83 L (1.2-3.4) K/uL [place] # (Auto) 0.80 H (0.11-0.59) K/uL Eos # (Auto) 0.02 (0-0.5) K/uL Baso # (Auto) 0.02 (0-0.2) K/uL Immature Gran # (Auto) 0.03 H (0.00-0.02) K/uL Absolute Nucleated RBC 0.02 H (0-0) K/uL Nucleated RBC % (auto) 0.3 % Hypochromasia Present Microcytosis Present Sodium 127 L (136-145) mmol/L Potassium 4.9 (3.5-5.1) mmol/L Chloride 98 (98-107) mmol/L Carbon Dioxide 23 (21-32) mmol/L Anion Gap 6 (3-11) BUN 15 (6-23) mg/dl Creatinine 1.49 H (0.6-1.4) mg/dl Est Cr Clr Drug Dosing 75.6 ml/min Est GFR ( Amer) 55.9 ml/min Est GFR (Non-Af Amer) 48.2 ml/min BUN/Creatinine Ratio 10.1 (10-20) Glucose 93 (70-99(Fasting)) mg/dl POC Glucose (70-99) mg/dl Calcium 8.8 (8.5-10.1) mg/dl Total Bilirubin 0.9 D (0.2-1.0) mg/dl Direct Bilirubin 0.2 (0-0.2) mg/dl AST 14 (13-39) U/L ALT 9 (7-52) U/L Alkaline Phosphatase 91 (34-104) U/L Total Protein 6.6 (6.0-8.3) gm/dl Albumin 3.3 L (3.4-5.0) gm/dl Folate 7.02 (>5.38) ng/ml Urine Color Urine Appearance (Clear) Urine pH (4.5-7.5) Ur Specific [place] (1.000-1.030) Urine Protein (Negative) Urine Glucose (UA) (Negative) Urine Ketones (Negative) Urine Blood (Negative) Urine Nitrite (Negative) Urine Bilirubin (Negative) Urine Urobilinogen (Negative) Ur Leukocyte Esterase (Negative) Urine Osmolality (500-800) mOsm/kg Ur Random Sodium mmol/L Blood Type Antibody Screen Crossmatch 09/11/21 09/11/21 09/10/21 Range/Units 00:15 00:15 17:45 WBC (4.8-10.8) K/uL RBC (4.7-6.1) M/uL Hgb 6.2 L* (14.0-18.0) g/dL Hct 22.0 L (42-52) % MCV (80-100) fL MCH (25-34) pg MCHC (32-36) g/dL RDW Std Deviation (36.4-46.3) fL RDW Coeff of Priscilla (11.5-14.5) % Plt Count (130-400) K/uL MPV (7.4-10.4) fL Immature Gran % (Auto) % Neut % (Auto) % Lymph % (Auto) % [place] % (Auto) % Eos % (Auto) % Baso % (Auto) % Neut # (Auto) (1.4-6.5) K/uL Lymph # (Auto) (1.2-3.4) K/uL [place] # (Auto) (0.11-0.59) K/uL Eos # (Auto) (0-0.5) K/uL Baso # (Auto) (0-0.2) K/uL Immature Gran # (Auto) (0.00-0.02) K/uL Absolute Nucleated RBC (0-0) K/uL Nucleated RBC % (auto) % Hypochromasia Microcytosis Sodium 124 L (136-145) mmol/L Potassium 5.4 H (3.5-5.1) mmol/L Chloride 94 L (98-107) mmol/L Carbon Dioxide 22 (21-32) mmol/L Anion Gap 8 (3-11) BUN 16 (6-23) mg/dl Creatinine 1.49 H (0.6-1.4) mg/dl Est Cr Clr Drug Dosing 77.0 ml/min Est GFR ( Amer) 55.9 ml/min Est GFR (Non-Af Amer) 48.2 ml/min BUN/Creatinine Ratio 10.7 (10-20) Glucose 99 (70-99(Fasting)) mg/dl POC Glucose (70-99) mg/dl Calcium 8.9 (8.5-10.1) mg/dl Total Bilirubin (0.2-1.0) mg/dl Direct Bilirubin (0-0.2) mg/dl AST (13-39) U/L ALT (7-52) U/L Alkaline Phosphatase (34-104) U/L Total Protein (6.0-8.3) gm/dl Albumin (3.4-5.0) gm/dl Folate (>5.38) ng/ml Urine Color Urine Appearance (Clear) Urine pH (4.5-7.5) Ur Specific [place] (1.000-1.030) Urine Protein (Negative) Urine Glucose (UA) (Negative) Urine Ketones (Negative) Urine Blood (Negative) Urine Nitrite (Negative) Urine Bilirubin (Negative) Urine Urobilinogen (Negative) Ur Leukocyte Esterase (Negative) Urine Osmolality 220 L (500-800) mOsm/kg Ur Random Sodium mmol/L Blood Type Antibody Screen Crossmatch 09/10/21 09/10/21 09/10/21 Range/Units 17:45 17:45 16:33 WBC (4.8-10.8) K/uL RBC (4.7-6.1) M/uL Hgb (14.0-18.0) g/dL Hct (42-52) % MCV (80-100) fL MCH (25-34) pg MCHC (32-36) g/dL RDW Std Deviation (36.4-46.3) fL RDW Coeff of Priscilla (11.5-14.5) % Plt Count (130-400) K/uL MPV (7.4-10.4) fL Immature Gran % (Auto) % Neut % (Auto) % Lymph % (Auto) % [place] % (Auto) % Eos % (Auto) % Baso % (Auto) % Neut # (Auto) (1.4-6.5) K/uL Lymph # (Auto) (1.2-3.4) K/uL [place] # (Auto) (0.11-0.59) K/uL Eos # (Auto) (0-0.5) K/uL Baso # (Auto) (0-0.2) K/uL Immature Gran # (Auto) (0.00-0.02) K/uL Absolute Nucleated RBC (0-0) K/uL Nucleated RBC % (auto) % Hypochromasia Microcytosis Sodium (136-145) mmol/L Potassium (3.5-5.1) mmol/L Chloride (98-107) mmol/L Carbon Dioxide (21-32) mmol/L Anion Gap (3-11) BUN (6-23) mg/dl Creatinine (0.6-1.4) mg/dl Est Cr Clr Drug Dosing ml/min Est GFR ( Amer) ml/min Est GFR (Non-Af Amer) ml/min BUN/Creatinine Ratio (10-20) Glucose (70-99(Fasting)) mg/dl POC Glucose (70-99) mg/dl Calcium (8.5-10.1) mg/dl Total Bilirubin (0.2-1.0) mg/dl Direct Bilirubin (0-0.2) mg/dl AST (13-39) U/L ALT (7-52) U/L Alkaline Phosphatase (34-104) U/L Total Protein (6.0-8.3) gm/dl Albumin (3.4-5.0) gm/dl Folate (>5.38) ng/ml Urine Color Yellow Urine Appearance Clear (Clear) Urine pH 5.5 (4.5-7.5) Ur Specific [place] 1.008 (1.000-1.030) Urine Protein Negative (Negative) Urine Glucose (UA) Negative (Negative) Urine Ketones Negative (Negative) Urine Blood Negative (Negative) Urine Nitrite Negative (Negative) Urine Bilirubin Negative (Negative) Urine Urobilinogen Negative (Negative) Ur Leukocyte Esterase Negative (Negative) Urine Osmolality (500-800) mOsm/kg Ur Random Sodium 47 mmol/L Blood Type A Positive Antibody Screen NEGATIVE Crossmatch See Detail PG Care Time/CCT Total # of Minutes Spent Total Time Spent with Patient: Total time spent is greater than 50% in coordination of care (as documented) at patient's floor/unit and/or counseling patient: Coding Level of Care Code 82389 Subseq Hosp Care Lvl 3 Diagnoses Anemia D64.9 Anemia type: unspecified type Acute hyponatremia E87.1 Hypomagnesemia E83.42 CHF (congestive heart failure) I50.9 Stage 3a chronic kidney disease (CKD) N18.31 Venous stasis I87.8 Withdrawal syndrome F19.239 Morbid obesity E66.01 Cirrhosis K74.60 (1) Anemia Anemia type: unspecified type Qualified Code(s): D64.9 - Anemia, unspecified
--- NOTE | 2021-09-11 11:41 | Electrocardiogram Report ---
Test Reason : Blood Pressure : / mmHG Vent. Rate : 113 BPM Atrial Rate : 113 BPM P-R Int : 214 ms QRS Dur : 102 ms QT Int : 302 ms P-R-T Axes : 045 018 036 degrees QTc Int : 414 ms Poor data quality, interpretation may be adversely affected Sinus tachycardia with 1st degree A-V block RSR' or QR pattern in V1 suggests right ventricular conduction delay Otherwise normal ECG No previous ECGs available Confirmed by Adam Leon ([id number]) on 09/11/2021 11:41:20 AM Referred By: REFERRED SELF Confirmed By:Adam Leon
--- NOTE | 2021-09-11 12:03 | Electrocardiogram Report ---
Test Reason : Blood Pressure : / mmHG Vent. Rate : 089 BPM Atrial Rate : 089 BPM P-R Int : 244 ms QRS Dur : 100 ms QT Int : 360 ms P-R-T Axes : 002 007 023 degrees QTc Int : 438 ms Sinus rhythm with 1st degree A-V block RSR' or QR pattern in V1 suggests right ventricular conduction delay Borderline ECG When compared with ECG of 10-SEP-2021 14:04, (unconfirmed) No significant change was found Confirmed by Adam Leon ([id number]) on 09/11/2021 12:03:18 PM Referred By: REFERRED SELF Confirmed By:Adam Leon
--- NOTE | 2021-09-11 12:44 | XCELERA ---
[id number]
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
[2021-09-12] MEDS: ACETAMINOPHEN 325 MG TAB PO PRN (03:02)
[2021-09-12 06:50] LABS: Hematocrit (blood only) 27.8 % (42-52); Hemoglobin 8.4 g/dL (14.0-18.0); Mean Corpuscular Hemoglobin 21.2 pg (25-34); Mean Corpuscular Hgb Conc 30.2 g/dL (32-36); Mean Corpuscular Volume 70.2 fL (80-100); Mean Platelet Volume 8.9 fL (7.4-10.4); Platelet Count 276 K/uL (130-400); RDW Coefficient of Variation 23.2 % (11.5-14.5); RDW Standard Deviation 59.3 fL (36.4-46.3); Red Blood Count 3.96 M/uL (4.7-6.1)
[2021-09-12 07:13] LABS: Anisocytosis Present; Basophils # (auto) 0.02 K/uL (0-0.2); Basophils % (auto) 0.3 %; Eosinophils # (auto) 0.12 K/uL (0-0.5); Eosinophils % (auto) 1.7 %; Hypochromasia Present; Immature Granulocytes # (auto) 0.04 K/uL (0.00-0.02); Immature Granulocytes % (auto) 0.6 %; Lymphocytes % (auto) 13.9 %; Microcytosis Present; Monocytes # (auto) 0.91 K/uL (0.11-0.59); Monocytes % (auto) 12.6 %; Neutrophils # (auto) 5.11 K/uL (1.4-6.5); Neutrophils % (auto) 70.9 %; Polychromasia 1+
[2021-09-12 07:17] LABS: Albumin Level 3.4 gm/dl (3.4-5.0); BUN Creatinine Ratio 9.6 (10-20); Bilirubin Direct 0.1 mg/dl (0-0.2); Bilirubin,Total 0.7 mg/dl (0.2-1.0); Creatinine Clr Calc Pharmacy 72.2 ml/min; Est GFR (African American) 52.9 ml/min; Est GFR (Non-African American) 45.6 ml/min; Magnesium 1.7 mg/dl (1.7-2.4); Potassium 4.4 mmol/L (3.5-5.1); Total Protein 6.9 gm/dl (6.0-8.3)
[2021-09-12] MEDS: IRON SUCROSE 300 MG in SODIUM CHLORIDE 0.9% 250 ML IV SCH (08:39)
[2021-09-12] MEDS: SPIRONOLACTONE 25 MG TAB PO SCH ×2 (08:39→16:31)
[2021-09-12] MEDS: FUROSEMIDE INJ 20 MG/2 ML VIAL IV SCH ×2 (08:39→16:31)
[2021-09-12] MEDS: FOLIC ACID 1 MG TAB PO SCH (08:39)
[2021-09-12] MEDS: METOPROLOL TARTRATE 50 MG TAB PO SCH ×2 (08:39→20:08)
[2021-09-12] MEDS: THIAMINE HCL 300 MG in SODIUM CHLORIDE 0.9% 50 ML IV SCH (08:40)
--- NOTE | 2021-09-12 09:35 | History & Physical Bridge Note ---
Date of Service September 12, 2021 History & Physical Bridge Note I have examined the patient, reviewed the History & Physical and in the interval since the performance of the History & Physical I have noted the following changes of clinical significance: no changes noted Proceed with EGD. risks/benefits and procedure discussed with patient, who agrees to proceed
[2021-09-12] MEDS: CYCLOBENZAPRINE HCL 5 MG TAB PO SCH ×3 (09:38→20:08)
[2021-09-12] MEDS: PANTOprazole 40 MG in SYRINGE 0 ML IV SCH ×2 (12:47→19:59)
[2021-09-12] MEDS ORDERED: PROPOFOL IV EMULSION 10 MG/ML 20 ML VIAL IV ONE ×2 (14:31→15:21)
[2021-09-12] MEDS ORDERED: LIDOCAINE 2% 2 ML VIAL/AMP(20MG/ML) INFIL ONE ×2 (14:31→15:21)
--- NOTE | 2021-09-12 14:36 | Anesthesiology Consultation ---
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 Nunn - Dean Nunn MD Height/Weight Height: 6 ft 3 in Weight: 147.3 kg Allergies Allergy/AdvReac Type Severity Reaction Status Date / Time No Known Allergies Allergy Verified 09/10/21 16:01 Medications Home Medications Medication Instructions Recorded Confirmed Last Taken Otc Nasal Decongestant 2 spry INTRANASAL DAILY PRN 09/10/21 09/10/21 Unknown amlodipine 10 mg-benazepril 40 mg 1 cap PO DAILY 09/10/21 09/10/21 09/10/21 capsule clonidine HCl 0.2 mg tablet 0.2 mg PO HS 09/10/21 09/10/21 09/09/21 cyclobenzaprine 10 mg tablet 10 mg PO TID 09/10/21 09/10/21 09/10/21 08:00 metoprolol tartrate 50 mg tablet 50 mg PO BID 09/10/21 09/10/21 09/10/21 08:00 pantoprazole 40 mg tablet,delayed 40 mg PO DAILY 09/10/21 09/10/21 09/10/21 release spironolactone 25 mg tablet 25 mg PO BID 09/10/21 09/10/21 09/10/21 08:00 Active Medications Generic Name Dose Route Start Last Admin Trade Name Freq PRN Reason Stop Dose Admin Acetaminophen 650 mg 09/11/21 19:05 09/12/21 03:02 Acetaminophen 325 Mg Tab PO 10/11/21 09:15 650 mg Q8 PRN Administration Pain Cyclobenzaprine HCl 2.5 mg 09/10/21 22:15 09/12/21 13:58 Cyclobenzaprine Hcl 5 Mg Tab PO 10/10/21 22:14 2.5 mg TID KHOI Administration Folic Acid 1 mg 09/11/21 09:00 09/12/21 08:39 Folic Acid 1 Mg Tab PO 10/11/21 08:59 1 mg QAM KHOI Administration Furosemide 20 mg 09/11/21 09:00 09/12/21 08:39 Furosemide Inj 20 Mg/2 Ml Vial IV 10/11/21 08:59 20 mg [id number] KHOI Administration Thiamine HCl 300 mg/ Sodium 53 mls @ 212 mls/hr 09/11/21 09:00 09/12/21 09:10 Chloride IV 10/11/21 08:59 Infused QAM KHOI Infusion Pantoprazole Sodium 40 mg/ 10 mls @ 5 mls/min 09/10/21 21:00 09/12/21 12:47 Syringe IV 10/10/21 20:59 5 mls/min BID KHOI Administration Iron Sucrose 300 mg/ Sodium 265 mls @ 176.667 mls/hr 09/12/21 09:00 09/12/21 10:30 Chloride IV 09/14/21 10:29 Infused DAILY KHOI Infusion Lorazepam 1 mg 09/10/21 20:09 09/11/21 00:01 Lorazepam 2 Mg/1 Ml Vial IV 10/10/21 20:08 1 mg ONE PRN Administration EtoH Withdrawal AWSS 6-10 Protocol Metoprolol Tartrate 50 mg 09/10/21 21:00 09/12/21 08:39 Metoprolol Tartrate 50 Mg Tab PO 10/10/21 20:59 50 mg BID KHOI Administration Spironolactone 25 mg 09/10/21 21:00 09/12/21 08:39 Spironolactone 25 Mg Tab PO 10/10/21 20:59 25 mg [id number] KHOI Administration Past Medical History Medical History (Updated 09/12/21 @ 14:39 by Jono Jones MD) Ascites CHF (congestive heart failure) Encounter for pre-operative examination Hypertension Obesity Transfusion history Past Family History Family History Other Family history non-contributory Past Surgical History Surgical History History of appendectomy Social History Smoking Status: Former smoker tobacco type: cigarettes Smoking cigarettes per day: 10 Do You Dip or Chew Tobacco: No Hx Alcohol Use: Yes Alcohol type: hard liquor alcohol intake frequency: a few times a week Alcohol Intake Frequency Comment: 2-3 drinks per occasion. Hx Substance Use: No Physical Exam Vital Signs Last Vital Signs Temp 37.0 C 09/12/21 11:00 Pulse 80 09/12/21 11:00 Resp 18 09/12/21 11:00 BP 118/74 09/12/21 11:00 Pulse Ox 98 09/12/21 11:00 Testing Laboratory Results 09/12/21 06:05 09/12/21 06:05 PT 11.3 Seconds (9.0-12.0) 09/10/21 14:00 INR 1.1 (0.9-1.1) 09/10/21 14:00 APTT 22.2 Seconds (21.0-31.0) 09/10/21 14:00 Urine Color Yellow 09/10/21 17:45 Urine Appearance Clear (Clear) 09/10/21 17:45 Urine pH 5.5 (4.5-7.5) 09/10/21 17:45 Ur Specific [place] 1.008 (1.000-1.030) 09/10/21 17:45 Urine Protein Negative (Negative) 09/10/21 17:45 Urine Glucose (UA) Negative (Negative) 09/10/21 17:45 Urine Ketones Negative (Negative) 09/10/21 17:45 Urine Nitrite Negative (Negative) 09/10/21 17:45 Ur Leukocyte Esterase Negative (Negative) 09/10/21 17:45 Blood Type A Positive 09/10/21 16:33 Antibody Screen NEGATIVE 09/10/21 16:33 Electrocardiogram Date: 09/12/2112-Sep-2021 06:01:50 [facility] ROUTINE RETRIEVAL Normal sinus rhythm Septal infarct , age undetermined Inferior infarct , age undetermined Abnormal ECG When compared with ECG of 11-SEP-2021 06:12, [place] interval has decreased RSR' pattern in V1 is no longer Present Septal infarct is now Present Inferior infarct is now Present Chest X-Ray Date: 09/10/21 XR chest 1V portable HISTORY: weakness COMPARISON: None. FINDINGS: The lungs are clear. Cardiac silhouette is mildly enlarged. No pleural effusions. No pneumothorax. IMPRESSION: Mild cardiomegaly. Otherwise, no acute process within the chest. Echocardiogram Date: 09/11/21 EF: 60-65% LV Function: normal RWMA: + none
--- NOTE | 2021-09-12 15:33 | GI REPORT ---
Patient Name: Karlos Rea Procedure Date: 09/12/2021 2:49 PM Date of : 1955 Admit Type: Inpatient Age: 66 Gender: Male Attending MD: Dean Nunn MD Procedure: Upper GI endoscopy Providers: Dean Nunn MD Referring MD: Dean Nunn MD Indications: Unexplained iron deficiency anemia Medicines: Monitored Anesthesia Care Complications: No immediate complications. Estimated blood loss: None. Estimated Blood Loss: Estimated blood loss: none. Procedure: Pre-Anesthesia Assessment: - Prior Anticoagulants: The patient has taken no previous anticoagulant or antiplatelet agents. - ASA Grade Assessment: III - A patient with severe systemic disease. After obtaining informed consent, the endoscope was passed under direct vision. Throughout the procedure, the patient's blood pressure, pulse, and oxygen saturations were monitored continuously. The Endoscope was introduced through the mouth, and advanced to the second part of duodenum. The upper GI endoscopy was accomplished without difficulty. The patient tolerated the procedure well. Findings: The examined esophagus was normal. no evidence of varices. Multiple 2 to 4 mm angioectasias with no bleeding were found in the stomach. Coagulation for bleeding prevention using argon plasma at 1.2 liters/minute and 35 pham was successful. Estimated blood loss: none. A few small angioectasias without bleeding were found in the duodenal bulb and in the first portion of the duodenum. Coagulation for bleeding prevention using argon plasma at 1.2 liters/minute and 35 pham was successful. Estimated blood loss: none. Impression: - Normal esophagus. - Multiple non-bleeding angioectasias in the stomach. Treated with argon plasma coagulation (APC). - A few non-bleeding angioectasias in the duodenum. Treated with argon plasma coagulation (APC). - No specimens collected. Recommendation: - Discharge patient to home (with escort). - Resume previous diet today. Dean Nunn MD 09/12/2021 3:33:07 PM This report has been signed electronically. Note Initiated On: 09/12/2021 2:49 PM Number of Addenda: 0 I attest to the content of the Intraoperative Record and orders documented therein, exceptions below {[id number]}
--- NOTE | 2021-09-12 15:35 | Electrocardiogram Report ---
Test Reason : Blood Pressure : / mmHG Vent. Rate : 095 BPM Atrial Rate : 095 BPM P-R Int : 204 ms QRS Dur : 098 ms QT Int : 354 ms P-R-T Axes : 029 -08 018 degrees QTc Int : 444 ms Normal sinus rhythm RSR' or QR pattern in V1 suggests right ventricular conduction delay Abnormal ECG When compared with ECG of 11-SEP-2021 06:12, [place] interval has decreased Confirmed by Adam Leon ([id number]) on 09/12/2021 3:35:42 PM Referred By: REFERRED SELF Confirmed By:Adam Leon
--- NOTE | 2021-09-12 15:42 | Anesthesiology Progress Note ---
Date of Service September 12, 2021 Anesthesia Post Procedure Vital Signs Vital Signs: Temp Pulse Pulse Resp BP BP Pulse Ox 09/12/21 15:24 102 H 24 115/71 97 09/12/21 15:00 92 H 09/12/21 14:39 97.5 F L 18 133/82 96 09/12/21 11:00 98.6 F 80 18 118/74 98 09/12/21 08:00 97.9 F 89 80 20 101/63 98 09/12/21 03:06 97.9 F 90 16 128/76 95 09/12/21 02:22 80 09/11/21 22:40 98.1 F 95 H 18 131/80 95 09/11/21 19:20 98.1 F 87 18 116/67 97 09/11/21 16:22 86 09/11/21 16:17 86 Pain Intensity Generalized: Pain Intensity: 6 Head: Pain Intensity: 5 Bilateral Lower Abdomen: Pain Intensity: 5 Transfer of Care Handoff Completed per policy Notes Mental Status: alert / awake / arousable and participated in evaluation Patient Amnestic to Procedure: Yes Nausea / Vomiting: adequately controlled Pain: adequately controlled Airway Patency, RR, SpO2: stable & adequate BP & HR: stable & adequate Hydration State: stable & adequate Anesthetic Complications: no major complications apparent and Pt Satisfied with anesthetic care
--- NOTE | 2021-09-12 16:54 | Hospitalist Progress Note ---
Date of Service September 12, 2021 Assessment & Plan (1) Anemia: Plan: This patient is a 66-year-old male with history of HTN, alcohol use disorder, ascites, CHF of unknown type, morbid obesity, who presents here with worsening weakness and shortness of breath and shakiness. He was found have a hemoglobin of 5.8. Microcytic anemia with MCV 66, with severe iron deficiency noted on iron studies CTA of the abdomen and pelvis to evaluate for bleeding or mass is negative BUN normal and without upper GI symptoms endorsed Hemoglobin up to 6.9 after 3 units PRBCs. Has been stable since transfusion -Continue with Protonix IV BID 40mg Patient had endoscopy performed 09/12/2021 with angioectasias seen in stomach duodenum treated with argon laser. GI medicine recommends advancing diet moving forward (2) Acute hyponatremia: Plan: NA 123 with serum osmo 268 Urine osmolality elevated at 220, urine sodium 47 but is on spironolactone - Mildly symptomatic - Normal TSH Sodium improving -Continue Lasix 20 mg IV twice daily -Free water restrict to 1L (3) Hypomagnesemia: Plan: Replete (4) CHF (congestive heart failure): Plan: chronic HFpEF He is clearly volume overloaded on exam Continue blood pressure control with his home metoprolol 50mg PO twice daily - Continue spironolactone - Lasix as above -Continue to hold his home amlodipine/benazepril, clonidine -Daily weights, I's and O's, follow urine output-has Bae catheter in place due to elevated creatinine (5) Stage 3a chronic kidney disease (CKD): Plan: Unsure of chronicity. Creatinine elevated at 1.6 on admission (6) Venous stasis: Plan: Chronic with venous stasis ulcerations of bilateral lower extremities - diurese as above (7) Withdrawal syndrome: Plan: Patient with tachycardia, hyponatremia, and tremors on admission He reports drinking 2-3 mixed drinks daily - ETOH level <10 on arrival -No signs of active withdrawal at this time - Continue with Thiamine and Folate although folate level checked and was normal (8) Morbid obesity: Plan: Walks with walker this is greatly increasing his overall cardiac mortality - weight loss management and education - following his GI evaluation and his overall reported reduced intake- nutrition consultation would be appropriate (9) Cirrhosis: Plan: Noted to have cirrhotic appearing liver on CT abdomen/pelvis He reports being told he had elevated liver enzymes for many decades, however his LFTs here are normal, platelet count is normal, and INR is normal indicating normal synthetic function of the liver Advised to stop drinking alcohol -Follow-up with GI after discharge -Limit Tylenol use to no more than 2000 mg in a day Plan: DVT prophylaxis-avoid chemical prophylaxis due to severe anemia and possibility of GI bleeding. Continue SCDs Once hemoglobin is stable advancing diet in the morning may consider discharge to home on 09/13/2021 Admission and Anticipated Discharge Date Admission Date: September 10, 2021 Subjective Patient feels well he complains of being hungry awaiting his EGD He denies any bowel movements or blood in the stool. No abdominal pains or nausea. No chest pains. No arrhythmias on telemetry monitoring Review of Systems Review of Systems: Nonspecific distress noted except for being hungry no headache, no visual changes no speech or swallowing issues no chest pain, pressure or palpitations no shortness of breath, cough or wheezes no abdominal pain, nausea or vomiting, diarrhea or constipation no dysuria, hematuria or frequency no focal joint pain or swelling no back pain, CVA tenderness or radicular pain no bruising, bleeding or rashes no focal signs of weakness or numbness or altered sensation no complaints of anxiety or depression.. Physical Exam Physical Exam: The patient appeared well nourished and normally developed. Vital signs as documented. Head exam is normocephalic atraumatic Neck is without JVD, thyromegaly, or carotid bruits. Lungs are clear to auscultation, no focal loss of breath sounds Cardiac exam, Rhythm is regular.. No murmurs, rubs or gallops. Abdominal exam reveals normal bowel sounds, soft non tender, no masses Extremities are trace to 1+ edema and both pedal pulses are present Neurologic exam is alert and oriented, no focal loss of strength or sensation Skin is with angiomas on skin Psychologically is without concerns for anxiety or depression.. Results & Data Results & Data ([facility]) Vital Signs (Past 12 Hours) Vital Signs Temp Pulse Pulse Resp BP BP Pulse Ox 09/12/21 15:54 89 22 128/73 98 09/12/21 15:39 90 22 132/82 97 09/12/21 15:24 102 H 24 115/71 97 09/12/21 15:00 92 H 09/12/21 14:39 97.5 F L 18 133/82 96 09/12/21 11:00 98.6 F 80 18 118/74 98 09/12/21 08:00 97.9 F 89 80 20 101/63 98 PG Care Time/CCT Total # of Minutes Spent Total Time Spent with Patient: Total time spent is greater than 50% in coordination of care (as documented) at patient's floor/unit and/or counseling patient: Coding Level of Care Code 46519 Subseq Hosp Care Lvl 3 Diagnoses Anemia D64.9 Anemia type: unspecified type Acute hyponatremia E87.1 Hypomagnesemia E83.42 CHF (congestive heart failure) I50.9 Stage 3a chronic kidney disease (CKD) N18.31 Venous stasis I87.8 Withdrawal syndrome F19.239 Morbid obesity E66.01 Cirrhosis K74.60 (1) Anemia Anemia type: unspecified type Qualified Code(s): D64.9 - Anemia, unspecified
[2021-09-13 06:58] LABS: BUN Creatinine Ratio 8.1 (10-20); Calcium 9.1 mg/dl (8.5-10.1); Creatinine Clr Calc Pharmacy 69.3 ml/min; Est GFR (African American) 51.3 ml/min; Est GFR (Non-African American) 44.2 ml/min; Potassium 4.3 mmol/L (3.5-5.1)
[2021-09-13 07:14] LABS: Mean Platelet Volume 9.2 fL (7.4-10.4); Platelet Count 294 K/uL (130-400)
[2021-09-13 07:32] LABS: Hemoglobin 8.7 g/dL (14.0-18.0); Mean Corpuscular Hemoglobin 20.8 pg (25-34); Mean Corpuscular Volume 71.6 fL (80-100); Nucleated RBC # (auto) 0.08 K/uL (0-0); Nucleated RBC % (auto) 0.8 %; RDW Coefficient of Variation 24.5 % (11.5-14.5); RDW Standard Deviation 61.6 fL (36.4-46.3); Red Blood Count 4.19 M/uL (4.7-6.1); White Blood Count 10.88 K/uL (4.8-10.8)
[2021-09-13 07:33] LABS: Anisocytosis Present; Basophils # (auto) 0.03 K/uL (0-0.2); Basophils % (auto) 0.3 %; Eosinophils # (auto) 0.08 K/uL (0-0.5); Eosinophils % (auto) 0.7 %; Hypochromasia Present; Immature Granulocytes # (auto) 0.05 K/uL (0.00-0.02); Immature Granulocytes % (auto) 0.5 %; Lymphocytes # (auto) 1.38 K/uL (1.2-3.4); Lymphocytes % (auto) 12.7 %; Microcytosis Present; Monocytes # (auto) 1.13 K/uL (0.11-0.59); Monocytes % (auto) 10.4 %; Neutrophils # (auto) 8.21 K/uL (1.4-6.5); Neutrophils % (auto) 75.4 %; Polychromasia 1+
[2021-09-13] MEDS: CYCLOBENZAPRINE HCL 5 MG TAB PO SCH ×3 (08:56→21:12)
[2021-09-13] MEDS: FOLIC ACID 1 MG TAB PO SCH (08:58)
[2021-09-13] MEDS: FUROSEMIDE INJ 20 MG/2 ML VIAL IV SCH ×2 (08:58→16:20)
[2021-09-13] MEDS: METOPROLOL TARTRATE 50 MG TAB PO SCH ×2 (09:00→21:11)
[2021-09-13] MEDS: PANTOprazole 40 MG in SYRINGE 0 ML IV SCH (09:00)
[2021-09-13] MEDS: SPIRONOLACTONE 25 MG TAB PO SCH ×2 (09:01→16:21)
[2021-09-13] MEDS: THIAMINE HCL 300 MG in SODIUM CHLORIDE 0.9% 50 ML IV SCH (09:20)
[2021-09-13] MEDS: IRON SUCROSE 300 MG in SODIUM CHLORIDE 0.9% 250 ML IV SCH (09:52)
--- NOTE | 2021-09-13 10:06 | Gastroenterology Progress Note ---
Date of Service September 13, 2021 Assessment & Plan (1) AVM (arteriovenous malformation): Plan: -Continue to monitor H/H -Diet as tolerated -Protonix 40 mg BID Admission and Anticipated Discharge Date Admission Date: September 10, 2021 Subjective Patient is a 66 yo male with anemia. Patient underwent an EGD on 09/12/21 that indicated multiple AVMs. Patient denies abdominal pain/melena. He is eating a liquid diet. H/H 8.7/30.0. Review of Systems Constitutional: no fever and no chills Respiratory: no cough and no dyspnea Cardiovascular: no chest pain Gastrointestinal: no abdominal pain and no melena Physical Exam Constitutional: well developed Respiratory: normal respiratory effort Cardiovascular: Rate/Rhythm: regular rate Gastrointestinal (Abdomen): Inspection/Auscultation: abdomen normal to inspection Results & Data Results & Data ([facility]) Vital Signs (Past 12 Hours) Vital Signs Temp Pulse Pulse Resp BP BP Pulse Ox 09/13/21 07:32 36.9 C 109 H 20 123/77 96 09/13/21 03:03 36.9 C 120 H 21 126/75 93 09/12/21 23:29 36.8 C 96 H 18 117/75 93 09/12/21 23:00 96 H PG Care Time/CCT Total # of Minutes Spent Total Time Spent with Patient: Total time spent is greater than 50% in coordination of care (as documented) at patient's floor/unit and/or counseling patient: Coding Level of Care Code 54505 Subseq Hosp Care Lvl 3 Diagnoses AVM (arteriovenous malformation) Q27.30
[2021-09-13] MEDS ORDERED: OXYBUTYNIN CHLORIDE 5 MG TAB PO STA (14:55)
--- NOTE | 2021-09-13 14:57 | Hospitalist Progress Note ---
Date of Service September 13, 2021 Assessment & Plan (1) Acute blood loss anemia: Plan: presumed 2nd to upper GI bleeding from numerous AVMs of the stomach/duodenum as seen on EGD. s/p APC by Dr Nunn. H/H stable s/p 3 units PRBCs. day #2/3 of Venofer. recheck cbc am. cont PPI bid. diet as tolerated. alcohol abstinence needed. (2) Iron deficiency anemia: Plan: transferrin sat <5%. severe microcytosis. all c/w Fe Def. day #2 of 3 of IV venofer. cbc in am for stability. check B12 level in am for completeness. (3) AVM (arteriovenous malformation): Plan: numerous - stomach, duodenum - as seen on EGD by Dr Nunn. s/p APC. cause of upper GI bleeding - likely acute/chronic. (4) Cirrhosis: Plan: no esophageal varices seen on EGD this admission. cirrhosis 2nd to etoh. can't rule out a component of VIGIL as well. volume status today - compensated. stop IV lasix after tonight's dose. cont aldactone. (5) Obesity: Plan: BMI 38.6 (6) Acute hyponatremia: Plan: repeat BMP in am repeat urine osm + urine Na in am serum Na level has improved with diuresis during the visit (7) Hypomagnesemia: Plan: 2nd to etoh abuse 1.3 at admission - replaced, improved to 1.7 repeat level am for stability (8) Hematuria: Plan: in the setting of recent neves placement u/a today suggestive of UTI send culture start rocephin if urine clears overnight will d/c neves tomorrow pt with bladder spasm from the bleeding - ditropan 5mg po x 1 now (9) UTI (urinary tract infection): Plan: suspected based on ua start IV rocephin urine culture may be cause of new-onset hematuria/clots (10) Alcohol abuse: Plan: thus far no significant signs of etoh withdrawal monitor carefully ativan prn cont thiamine cont folate (11) Hypertension: Plan: in the setting of #1 BPs have been controlled without his usual meds cont metoprolol but HOLD clonidine, hold amlodipine-benazepril hold lasix IV after tonight's dose can cont aldactone BID Plan: patient still needs repeat PT/OT evals to ensure safe for home Admission and Anticipated Discharge Date Admission Date: September 10, 2021 Subjective patient developed mild gross hematuria with clots this afternoon this was associated with bladder spasm and pain he has had a neves since hospital admission prior to this admission did NOT have gross hematuria at home denies any abd pain in the epigastric region no nausea/emesis feeling well and hopeful for d/c home soon tele overnight wnl Review of Systems Review of Systems: gen - feeling well cv - no cp, no orthopnea pulm - no dyspnea at rest; no cough GI - no BRBPR Physical Exam Physical Exam: gen - obese, NAD skin - mild pallor mouth - MMM neck - no JVD heart - RRR, s1 s2 lungs - CTA b/l abd - soft NT ND BS+ ext - no edema, pulses 2 + b/l psych - a/o x 3 Results & Data Results & Data ([facility]) Vital Signs (Past 12 Hours) Vital Signs Temp Pulse Pulse Resp BP BP Pulse Ox 09/13/21 10:36 101 H 09/13/21 07:32 36.9 C 109 H 20 123/77 96 09/13/21 03:03 36.9 C 120 H 21 126/75 93 Laboratory Results Laboratory Results - last 24 hr 09/13/21 09/13/21 05:55 05:55 WBC 10.88 H RBC 4.19 L Hgb 8.7 L Hct 30.0 L MCV 71.6 L MCH 20.8 L MCHC 29.0 L RDW Std Deviation 61.6 H RDW Coeff of Priscilla 24.5 H Plt Count 294 MPV 9.2 Immature Gran % (Auto) 0.5 Neut % (Auto) 75.4 Lymph % (Auto) 12.7 Jennings % (Auto) 10.4 Eos % (Auto) 0.7 Baso % (Auto) 0.3 Neut # (Auto) 8.21 H Lymph # (Auto) 1.38 [place] # (Auto) 1.13 H Eos # (Auto) 0.08 Baso # (Auto) 0.03 Immature Gran # (Auto) 0.05 H Absolute Nucleated RBC 0.08 H Nucleated RBC % (auto) 0.8 Polychromasia 1+ Hypochromasia Present Anisocytosis Present Microcytosis Present Sodium 130 L Potassium 4.3 Chloride 96 L Carbon Dioxide 25 Anion Gap 9 BUN 13 Creatinine 1.60 H Est Cr Clr Drug Dosing 69.3 Est GFR ( Amer) 51.3 Est GFR (Non-Af Amer) 44.2 BUN/Creatinine Ratio 8.1 L Glucose 86 Calcium 9.1 PG Care Time/CCT Total # of Minutes Spent Total Time Spent with Patient: Total time spent is greater than 50% in coordination of care (as documented) at patient's floor/unit and/or counseling patient: Coding Level of Care Code 01082 Subseq Hosp Care Lvl 3 Diagnoses Acute blood loss anemia D62 Iron deficiency anemia D50.9 AVM (arteriovenous malformation) Q27.30 Cirrhosis K74.60 Obesity E66.9 Acute hyponatremia E87.1 Hypomagnesemia E83.42 Hematuria R31.9 UTI (urinary tract infection) N39.0 Alcohol abuse F10.10 Hypertension I10
[2021-09-13 18:29] LABS: Appearance Urine Cloudy (Clear); Bacteria Urine Automated 4+ (Negative); Bilirubin Urine Negative (Negative); Blood Urine 3+ (Negative); Color Urine Orange; Epithelial Cell Urine Auto >30 /lpf (0-5); Glucose Urine UA Negative (Negative); Ketones Urine Negative (Negative); Leukocyte Esterase Urine 3+ (Negative); Nitrite Urine Negative (Negative); Protein Urine 1+ (Negative); RBC Urine Automated >30 /hpf (0-4); Specific Gravity Urine 1.012 (1.000-1.030); Urobilinogen Urine Negative (Negative); WBC Urine Automated >30 /hpf (0-5); pH Urine 6.5 (4.5-7.5)
[2021-09-13 18:57] LABS: Cast Urine Automated 0 /lpf (0-5)
[2021-09-13] MEDS: PANTOprazole 40 MG TAB PO SCH (21:15)
[2021-09-13] MEDS: cefTRIAXone SODIUM 2,000 MG in DEXTROSE 5% 50 ML IV SCH (21:24)
[2021-09-14] MEDS ORDERED: SIMETHICONE 80 MG CHEW PO STA (06:21)
[2021-09-14 06:44] LABS: Creatinine Clr Calc Pharmacy 70.4 ml/min; Est GFR (African American) 52.9 ml/min; Est GFR (Non-African American) 45.6 ml/min; Magnesium 1.5 mg/dl (1.7-2.4); Potassium 3.8 mmol/L (3.5-5.1)
[2021-09-14 08:12] LABS: Hematocrit (blood only) 30.2 % (42-52); Mean Corpuscular Hemoglobin 21.2 pg (25-34); Mean Corpuscular Hgb Conc 29.8 g/dL (32-36); Mean Corpuscular Volume 71.2 fL (80-100); Mean Platelet Volume 9.8 fL (7.4-10.4); Nucleated RBC # (auto) 0.03 K/uL (0-0); Nucleated RBC % (auto) 0.3 %; Platelet Count 308 K/uL (130-400); RDW Coefficient of Variation 25.5 % (11.5-14.5); RDW Standard Deviation 62.9 fL (36.4-46.3); Red Blood Count 4.24 M/uL (4.7-6.1); White Blood Count 11.55 K/uL (4.8-10.8)
[2021-09-14] MEDS: THIAMINE HCL 300 MG in SODIUM CHLORIDE 0.9% 50 ML IV SCH (09:03)
[2021-09-14] MEDS: CYCLOBENZAPRINE HCL 5 MG TAB PO SCH ×3 (09:08→21:25)
[2021-09-14] MEDS: METOPROLOL TARTRATE 50 MG TAB PO SCH (09:10)
[2021-09-14] MEDS: FOLIC ACID 1 MG TAB PO SCH (09:10)
[2021-09-14] MEDS: PANTOprazole 40 MG TAB PO SCH ×2 (09:11→21:24)
[2021-09-14] MEDS: SPIRONOLACTONE 25 MG TAB PO SCH ×2 (09:11→17:15)
[2021-09-14] MEDS: MAGNESIUM SULFATE / D5W 1 GM/100 ML BAG IV SCH ×2 (09:36→11:29)
[2021-09-14] MEDS: IRON SUCROSE 300 MG in SODIUM CHLORIDE 0.9% 250 ML IV SCH (09:37)
[2021-09-14] MEDS: ACETAMINOPHEN 325 MG TAB PO PRN ×2 (09:45→21:23)
--- NOTE | 2021-09-14 15:32 | XRay Report ---
XR abdomen 2V w PA chest CLINICAL HISTORY: bloating; eval fecal load, ileus, etc TECHNIQUE: 2 views of the abdomen were obtained. A single view of the chest was obtained. Comparison: Comparison is made to chest radiograph 09/10/2021 FINDINGS: No lines and tubes are seen. Cardiomegaly is noted. The lungs are clear. No evidence of pleural effus ion or pneumothorax. Degenerative changes are seen in the visualized skeleton. The bowel gas pattern is nonobstructive. A moderate amount of stool is noted within the large bowel. IMPRESSION: Nonobstructive bowel gas pattern. ACT 112: Negative or not required by law. Electronically signed by: Kevin Morales M.D. 09/14/2021 3:31 PM
[2021-09-14] MEDS ORDERED: bisacodyL 10 MG SUPP PR STA (18:24)
--- NOTE | 2021-09-14 20:42 | Hospitalist Progress Note ---
Date of Service September 14, 2021 Assessment & Plan (1) Acute blood loss anemia: Plan: presumed 2nd to upper GI bleeding from numerous AVMs of the stomach/duodenum as seen on EGD. s/p APC by Dr Nunn. H/H stable s/p 3 units PRBCs. day #3 of 3 of Venofer today. recheck cbc am for stability. cont PPI bid. diet as tolerated. alcohol abstinence needed. (2) Iron deficiency anemia: Plan: transferrin sat <5%. severe microcytosis. all c/w Fe Def. day #3 of 3 of IV venofer. cbc in am for stability. checked B12 level - normal. remains on folate supplementation in light of etoh use. (3) AVM (arteriovenous malformation): Plan: numerous - stomach, duodenum - as seen on EGD by Dr Nunn. s/p APC. cause of upper GI bleeding - likely acute/chronic. (4) Cirrhosis: Plan: no esophageal varices seen on EGD this admission. cirrhosis 2nd to etoh. can't rule out a component of VIGIL as well. volume status today remains compensated. IV lasix stopped. if bmp tomorrow is stable start PO lasix 40mg daily. cont aldactone for now. (5) Obesity: Plan: BMI 38 (6) Acute hyponatremia: Plan: repeat BMP in am repeat urine osm today is high; urine Na is high plan to fluid restrict to 1800cc/day and resume lasix 40mg daily (7) Hypomagnesemia: Plan: 2nd to etoh abuse 1.3 at admission - replaced, improved to 1.7 (8) Hematuria: Plan: 2nd to UTI - resolved (9) UTI (urinary tract infection): Plan: suspected based on ua cont IV rocephin day #2 urine culture pending still likely cause of recent hematuria/clots follow culture since hematuria is resolved will d/c pura (10) Alcohol abuse: Plan: thus far no significant signs of etoh withdrawal monitor carefully ativan prn cont thiamine cont folate (11) Hypertension: Plan: in the setting of #1 BPs have been controlled without his usual meds cont metoprolol but HOLD clonidine, hold amlodipine-benazepril hold lasix today can cont aldactone BID (12) PAT (paroxysmal atrial tachycardia): Plan: 3-4 min long episode yesterday am no symptoms will increase beta michael to 75mg BID cont telemetry monitoring Plan: patient still needs repeat PT/OT evals to ensure safe for home and is truly able to ambulate he has been in bed nearly the entire hospital stay Admission and Anticipated Discharge Date Admission Date: September 10, 2021 Subjective no further gross hematuria does feel bloated and tried simethicone without any relief of such no nausea or emesis still able to eat/drink adequately denies dyspnea has not been out of bed - tells me that he won't sit in the current chair that is in room as it is not comfortable he apparently cares for his elderly mother at home? tele overnight wnl, but did have 3-4 minute run yesterday of PAT - perhaps when he was trying to ambulate to the commode Review of Systems Review of Systems: gen - no fever cv - no cp, no orthopnea pulm - no cough, no dyspnea GI - no abd pain but is bloated Physical Exam Physical Exam: gen - obese, NAD mouth - MMM neck - no JVD heart - RRR, s1 s2, no murmur lungs - CTA b/l abd - soft NT ND BS+; large diasthesis recti ext - no edema, pulses 2 + b/l psych - a/o x 3 - neves still in place; urine is clear, no clots, no hematuria psych - a/o x 3 Results & Data Results & Data ([facility]) Vital Signs (Past 12 Hours) Vital Signs Temp Pulse Pulse Resp BP BP Pulse Ox 09/14/21 20:10 36.7 C 113 H 18 117/78 95 09/14/21 16:46 90 09/14/21 16:00 36.7 C 83 16 128/62 97 09/14/21 12:14 36.5 C 79 18 118/63 95 09/14/21 10:40 113 H Laboratory Results Laboratory Results - last 24 hr 09/14/21 09/14/21 09/14/21 06:02 06:02 06:02 WBC 11.55 H RBC 4.24 L Hgb 9.0 L Hct 30.2 L MCV 71.2 L MCH 21.2 L MCHC 29.8 L RDW Std Deviation 62.9 H RDW Coeff of Priscilla 25.5 H Plt Count 308 MPV 9.8 Absolute Nucleated RBC 0.03 H Nucleated RBC % (auto) 0.3 Sodium 129 L Potassium 3.8 Chloride 95 L Carbon Dioxide 24 Anion Gap 10 BUN 14 Creatinine 1.56 H Est Cr Clr Drug Dosing 70.4 Est GFR ( Amer) 52.9 Est GFR (Non-Af Amer) 45.6 BUN/Creatinine Ratio 9.0 L Glucose 105 H Calcium 9.0 Magnesium 1.5 L Vitamin B12 747 Urine Osmolality Ur Random Sodium 09/14/21 09/14/21 11:00 11:00 WBC RBC Hgb Hct MCV MCH MCHC RDW Std Deviation RDW Coeff of Priscilla Plt Count MPV Absolute Nucleated RBC Nucleated RBC % (auto) Sodium Potassium Chloride Carbon Dioxide Anion Gap BUN Creatinine Est Cr Clr Drug Dosing Est GFR ( Amer) Est GFR (Non-Af Amer) BUN/Creatinine Ratio Glucose Calcium Magnesium Vitamin B12 Urine Osmolality 391 L Ur Random Sodium 101 Diagnostic Findings Urine cx still pending PG Care Time/CCT Total # of Minutes Spent Total Time Spent with Patient: Total time spent is greater than 50% in coordination of care (as documented) at patient's floor/unit and/or counseling patient: Coding Level of Care Code 50685 Subseq Hosp Care Lvl 3 Diagnoses Acute blood loss anemia D62 Iron deficiency anemia D50.9 AVM (arteriovenous malformation) Q27.30 Cirrhosis K74.60 Obesity E66.9 Acute hyponatremia E87.1 Hypomagnesemia E83.42 Hematuria R31.9 UTI (urinary tract infection) N39.0 Alcohol abuse F10.10 Hypertension I10 PAT (paroxysmal atrial tachycardia) I47.1
[2021-09-14] MEDS: cefTRIAXone SODIUM 2,000 MG in DEXTROSE 5% 50 ML IV SCH (21:22)
[2021-09-14] MEDS: METOPROLOL TARTRATE 25 MG TAB PO SCH (21:27)
[2021-09-15 06:36] LABS: Hematocrit (blood only) 29.7 % (42-52); Mean Corpuscular Hemoglobin 21.6 pg (25-34); Mean Corpuscular Hgb Conc 30.3 g/dL (32-36); Mean Corpuscular Volume 71.2 fL (80-100); Mean Platelet Volume 9.1 fL (7.4-10.4); Platelet Count 312 K/uL (130-400); RDW Coefficient of Variation 26.1 % (11.5-14.5); RDW Standard Deviation 63.2 fL (36.4-46.3); Red Blood Count 4.17 M/uL (4.7-6.1); White Blood Count 12.11 K/uL (4.8-10.8)
[2021-09-15 07:26] LABS: Calcium 8.7 mg/dl (8.5-10.1); Creatinine Clr Calc Pharmacy 82.2 ml/min; Est GFR (African American) 63.5 ml/min; Est GFR (Non-African American) 54.8 ml/min; Magnesium 1.7 mg/dl (1.7-2.4); Potassium 3.9 mmol/L (3.5-5.1)
[2021-09-15] MEDS: CYCLOBENZAPRINE HCL 5 MG TAB PO SCH ×3 (08:14→21:18)
[2021-09-15] MEDS: METOPROLOL TARTRATE 25 MG TAB PO SCH ×2 (08:14→21:17)
[2021-09-15] MEDS: PANTOprazole 40 MG TAB PO SCH ×2 (08:14→21:18)
[2021-09-15] MEDS: SPIRONOLACTONE 25 MG TAB PO SCH (08:15)
[2021-09-15] MEDS: FOLIC ACID 1 MG TAB PO SCH (08:15)
[2021-09-15] MEDS: POLYETHYLENE (MIRALAX) 17 GM PACK PO SCH (08:21)
[2021-09-15] MEDS: SENNA 8.6 MG TAB PO SCH (08:21)
[2021-09-15] MEDS: THIAMINE HCL 300 MG in SODIUM CHLORIDE 0.9% 50 ML IV SCH (09:07)
[2021-09-15] MEDS ORDERED: FUROSEMIDE 40 MG TAB PO SCH (09:45)
[2021-09-15] MEDS: MAGNESIUM OXIDE 400 MG TAB PO SCH (10:39)
[2021-09-15 15:34] LABS: BUN Creatinine Ratio 7.9 (10-20); Calcium 9.3 mg/dl (8.5-10.1); Creatinine Clr Calc Pharmacy 72.5 ml/min; Est GFR (African American) 54.6 ml/min; Est GFR (Non-African American) 47.1 ml/min; Potassium 4.3 mmol/L (3.5-5.1)
[2021-09-15] MEDS: ACETAMINOPHEN 325 MG TAB PO PRN ×2 (15:36→21:31)
--- NOTE | 2021-09-15 18:57 | Hospitalist Progress Note ---
Date of Service September 15, 2021 Assessment & Plan (1) Acute blood loss anemia: Plan: presumed 2nd to upper GI bleeding from numerous AVMs of the stomach/duodenum as seen on EGD - 09/12/21. s/p APC by Dr Nunn. H/H stable since receiving 3 units PRBCs earlier in the stay. s/p 3 doses of IV venofer while hospitalized. recheck cbc am for stability. cont PPI bid. diet as tolerated. alcohol abstinence needed as heavy etoh will predispose him to repeat episodes of bleeding. (2) Iron deficiency anemia: Plan: transferrin sat <5%. severe microcytosis. all c/w Fe Def. s/p 3 days of IV venofer. cbc in am for stability. checked B12 level - normal. remains on folate supplementation in light of etoh use. (3) AVM (arteriovenous malformation): Plan: numerous - stomach, duodenum - as seen on EGD by Dr Nunn. s/p APC. cause of upper GI bleeding - likely acute/chronic. (4) Cirrhosis: Plan: no esophageal varices seen on EGD this admission. cirrhosis 2nd to etoh. can't rule out a component of VIGIL as well. volume status today remains compensated. no LE edema, no pulm edema, no ascites on recent CT a/p. hold aldactone. place on lasix 40mg po daily (for suspected SIADH, and to maintain euvolemia). (5) Obesity: Plan: BMI 38 (6) Acute hyponatremia: Plan: acute on chronic (suspected) was 123 on day of admission sodium improved s/p several days of IV lasix (previous physician suspected hypervolemia) sodium yesenia to 129 since stopping the lasix, however, his Na level has trended down to 126 this am urine osm is >300; urine Na is high (>100) SIADH?? I placed him on 1800cc fluid restriction and gave lasix 40mg this am -- unfortunately sodium decreased further to 125 with these measures HOLD ALL DIURETICS BMP in am plan for nephrology consult for their opinion check a uric acid level in am as well (7) Hypomagnesemia: Plan: 2nd to etoh abuse 1.3 at admission - replaced, improved to 1.7 (8) Hematuria: Plan: 2nd to UTI - resolved (9) UTI (urinary tract infection): Plan: urine cx with GNR, >[id number] CFU cont IV rocephin day #3 likely cause of recent hematuria/clots follow culture neves has been d/c, no further hematuria, voiding ok today (10) Alcohol abuse: Plan: thus far no significant signs of etoh withdrawal monitor carefully ativan prn cont thiamine cont folate (11) Hypertension: Plan: in the setting of #1 BPs have been controlled without his usual meds cont metoprolol but HOLD clonidine, hold amlodipine-benazepril hold his diuretics due to low sodium (12) PAT (paroxysmal atrial tachycardia): Plan: 3-4 min long episode this week no symptoms increased beta michael to 75mg BID cont telemetry monitoring (13) Constipation: Plan: resolved overnight cont miralax cont senna Plan: cleared by PT/OT to return home need final urine culture results and improvement in Na level before safe discharge Admission and Anticipated Discharge Date Admission Date: September 10, 2021 Subjective "I'm ready to go home doc" he was very disappointed when I told him that his sodium level was trending down and was going to prevent a safe discharge today he had 2 large BMs since yesterday evening and abdominal bloating is resolved neves removed yesterday - voiding without difficulty today no hematuria eating well good appetite worked with PT/OT - cleared for home by them overnight telemetry - no PAT or other dysrhythmia; does have some sinus tach with walking Review of Systems Review of Systems: gen - no fatigue, no weakness, good appetite cv - no cp, no orthopnea pulm - no cough or dyspnea GI - no abd pain, nausea or emesis Physical Exam Physical Exam: gen - obese, NAD, looks good mouth - MMM neck - no JVD heart - RRR, s1 s2, no murmur lungs - CTA b/l abd - soft NT ND BS+; large diasthesis recti vs protuberant upper abdomen ext - no edema, pulses 2 + b/l psych - a/o x 3 skin - turgor wnl Results & Data Results & Data ([facility]) Vital Signs (Past 12 Hours) Vital Signs Temp Pulse Pulse Resp BP Pulse Ox 09/15/21 15:35 36.8 C 89 18 125/73 09/15/21 14:30 102 H 09/15/21 12:00 36.8 C 95 H 20 141/73 H 95 09/15/21 08:00 36.8 C 90 18 132/73 96 09/15/21 07:00 97 H Laboratory Results Laboratory Results - last 24 hr 09/15/21 09/15/21 09/15/21 06:16 06:16 14:37 WBC 12.11 H RBC 4.17 L Hgb 9.0 L Hct 29.7 L MCV 71.2 L MCH 21.6 L MCHC 30.3 L RDW Std Deviation 63.2 H RDW Coeff of Priscilla 26.1 H Plt Count 312 MPV 9.1 Sodium 126 L 125 L Potassium 3.9 4.3 Chloride 94 L 91 L Carbon Dioxide 23 23 Anion Gap 9 11 BUN 12 12 Creatinine 1.34 1.52 H Est Cr Clr Drug Dosing 82.2 72.5 Est GFR ( Amer) 63.5 54.6 Est GFR (Non-Af Amer) 54.8 47.1 BUN/Creatinine Ratio 9.0 L 7.9 L Glucose 106 H 104 H Calcium 8.7 9.3 Magnesium 1.7 Urine Osmolality Ur Random Sodium 09/15/21 09/15/21 18:28 18:28 WBC RBC Hgb Hct MCV MCH MCHC RDW Std Deviation RDW Coeff of Priscilla Plt Count MPV Sodium Potassium Chloride Carbon Dioxide Anion Gap BUN Creatinine Est Cr Clr Drug Dosing Est GFR ( Amer) Est GFR (Non-Af Amer) BUN/Creatinine Ratio Glucose Calcium Magnesium Urine Osmolality Pending Ur Random Sodium Pending PG Care Time/CCT Total # of Minutes Spent Total Time Spent with Patient: Total time spent is greater than 50% in coordination of care (as documented) at patient's floor/unit and/or counseling patient: Coding Level of Care Code 43143 Subseq Hosp Care Lvl 3 Diagnoses Acute blood loss anemia D62 Iron deficiency anemia D50.9 AVM (arteriovenous malformation) Q27.30 Cirrhosis K74.60 Obesity E66.9 Acute hyponatremia E87.1 Hypomagnesemia E83.42 Hematuria R31.9 UTI (urinary tract infection) N39.0 Alcohol abuse F10.10 Hypertension I10 PAT (paroxysmal atrial tachycardia) I47.1 Constipation K59.00
[2021-09-15] MEDS: cefTRIAXone SODIUM 2,000 MG in DEXTROSE 5% 50 ML IV SCH (21:31)
[2021-09-16] MEDS: ACETAMINOPHEN 325 MG TAB PO PRN ×2 (03:55→21:11)
[2021-09-16 06:17] LABS: Hematocrit (blood only) 33.3 % (42-52); Hemoglobin 9.8 g/dL (14.0-18.0); Mean Corpuscular Hemoglobin 21.5 pg (25-34); Mean Corpuscular Hgb Conc 29.4 g/dL (32-36); Mean Corpuscular Volume 73.2 fL (80-100); Mean Platelet Volume 9.4 fL (7.4-10.4); Platelet Count 389 K/uL (130-400); RDW Coefficient of Variation 26.3 % (11.5-14.5); RDW Standard Deviation 65.5 fL (36.4-46.3); Red Blood Count 4.55 M/uL (4.7-6.1); White Blood Count 12.37 K/uL (4.8-10.8)
[2021-09-16 06:52] LABS: BUN Creatinine Ratio 7.6 (10-20); Calcium 9.1 mg/dl (8.5-10.1); Creatinine Clr Calc Pharmacy 70.5 ml/min; Est GFR (African American) 52.5 ml/min; Est GFR (Non-African American) 45.3 ml/min; Uric Acid 11.4 mg/dl (2.6-7.2)
[2021-09-16] MEDS ORDERED: SODIUM CHLORIDE 3 % 100 ML IV ONE ×3 (08:26→20:22)
--- NOTE | 2021-09-16 09:11 | Nephrology Consultation ---
Date of Consultation September 16, 2021 Assessment & Plan (1) Acute hyponatremia: Asymptomatic. 3% saline x 100 ml bolus now. Relatively euvolemic on exam. Suspect some intravascular depletion and possible SAIDH. Free water restrict to 1500 ml daily. Repeat metabolic profile at noon. Risks discussed in detail with patient this AM. (2) Stage 3a chronic kidney disease (CKD): Kidney function stable. Creatinine 1.5 mg/dL. CKD III. Close outpatient fo llow up encouraged. Volume status acceptable. Medications appropriate for kidney function. (3) Hypertension: BP acceptable. Clonidine, amlodipine, and benazepril held. Spironolactone held. Agree with avoiding overcorrection. (4) Cirrhosis: GI consultation reviewed. History of Present Illness Reason for Consultation: Hyponatremia Requesting Physician: Daniel Sears Attending Physician: Daniel Sears History of Present Illness Mr. Karlos Rea is a 66 year-old male with morbid obesity and cirrhosis who presented to [facility] on 09/11 with symptomatic anemia. Roger has evidence of some underlying CKD but baseline unknown. Evaluation notable for severe hyponatremia without notable symptoms. ESLD attributed to alcohol +/- VIGIL. No medical care in ~4 years. Lives with his mother outside of [place]. Functionally independent. Karlos was very insistent on going home today when I entered his room this morning. He became upset about the idea of staying in the hospital and expressed frustration regarding lack of improvement in serum sodium. Initially, he was found to be hypervolemic and serum sodium had improved with IV diuretics. Sodium improved from 123 to 129 mmol/L. After stopping diuretics, sodium started to trend back down. Uosm 300. PO lasix provided yesterday but sodium trended down slightly again. CT shows cirrhosis. Appetite is good. Yesterday, after Bae removal he had some difficulty voiding and was told to increase his fluid intake. He was afraid that he would not be able to be discharged if he was not able to void on his own. He drank 1500 ml of fluid to encourage urine output. He denies fluid retention or edema at this time. He has no urinary complaints this AM. Allergies Allergy/AdvReac Type Severity Reaction Status Date / Time No Known Allergies Allergy Verified 09/10/21 16:01 Home Medications Medication Instructions Recorded Confirmed Type Otc Nasal Decongestant 2 spry INTRANASAL DAILY PRN 09/10/21 09/10/21 History amlodipine 10 mg-benazepril 40 mg 1 cap PO DAILY 09/10/21 09/10/21 History capsule clonidine HCl 0.2 mg tablet 0.2 mg PO HS 09/10/21 09/10/21 History cyclobenzaprine 10 mg tablet 10 mg PO TID 09/10/21 09/10/21 History metoprolol tartrate 50 mg tablet 50 mg PO BID 09/10/21 09/10/21 History pantoprazole 40 mg tablet,delayed 40 mg PO DAILY 09/10/21 09/10/21 History release spironolactone 25 mg tablet 25 mg PO BID 09/10/21 09/10/21 History Patient History Medical History Ascites CHF (congestive heart failure) Encounter for pre-operative examination Hypertension Obesity Transfusion history Surgical History History of appendectomy Family History Other Family history non-contributory Social History Smoking Status: Former smoker Cigarettes Per Day: 10; Second Hand Exposure: No; Hx Alcohol Use: Yes Alcohol type: hard liquor Hx Substance Use: No Preferred Language: Syriac Communication Ability: Effective Bolt Machine Operator Required: No Beliefs That Will Affect Care: None Current Living Situation: Family How many Children do You have: 2 Feels Safe at Home: Yes Assistive Devices: Walker Review of Systems Review of Systems: All systems reviewed & are unremarkable except as noted in HPI & below Physical Exam Constitutional: well developed; no acute distress Eyes: no scleral abnormality and no corneal abnormality ENMT: Mouth: no oral mucosal abnormality and oral mucous membranes not dry Neck: normal visual inspection and trachea midline Respiratory: normal respiratory effort Auscultation: lungs clear to auscultation bilaterally Cardiovascular: Rate/Rhythm: regular rate Heart Sounds: normal S1 and normal S2 Extremities: + edema Musculoskeletal: Extremities: no cyanosis and no clubbing Skin: normal turgor; no lesions Neurologic: Motor/Sensory: no tremor and no asterixis Psychiatric: Orientation: alert and oriented x 3 Results & Data ([facility]) Vital Signs (Past 12 Hours) Vital Signs Temp Pulse Pulse Resp BP Pulse Ox 09/16/21 06:39 36.9 C 103 H 18 115/75 97 09/16/21 03:05 36.9 C 89 18 132/80 96 09/15/21 23:19 36.8 C 87 18 126/77 95 09/15/21 22:19 87 Laboratory Results Laboratory Results - last 24 hr 09/15/21 09/15/21 09/15/21 14:37 18:28 18:28 WBC RBC Hgb Hct MCV MCH MCHC RDW Std Deviation RDW Coeff of Priscilla Plt Count MPV Sodium 125 L Potassium 4.3 Chloride 91 L Carbon Dioxide 23 Anion Gap 11 BUN 12 Creatinine 1.52 H Est Cr Clr Drug Dosing 72.5 Est GFR ( Amer) 54.6 Est GFR (Non-Af Amer) 47.1 BUN/Creatinine Ratio 7.9 L Glucose 104 H Osmolality Uric Acid Calcium 9.3 Urine Osmolality 314 L Ur Random Sodium 104 09/16/21 09/16/21 09/16/21 06:02 06:02 06:02 WBC 12.37 H RBC 4.55 L Hgb 9.8 L Hct 33.3 L MCV 73.2 L MCH 21.5 L MCHC 29.4 L RDW Std Deviation 65.5 H RDW Coeff of Priscilla 26.3 H Plt Count 389 MPV 9.4 Sodium 124 L Potassium 4.0 Chloride 91 L Carbon Dioxide 21 Anion Gap 12 H BUN 12 Creatinine 1.57 H Est Cr Clr Drug Dosing 70.5 Est GFR ( Amer) 52.5 Est GFR (Non-Af Amer) 45.3 BUN/Creatinine Ratio 7.6 L Glucose 108 H Osmolality 266 L Uric Acid 11.4 H Calcium 9.1 Urine Osmolality Ur Random Sodium PG Care Time/CCT Total # of Minutes Spent Total Time Spent with Patient: Total time spent is greater than 50% in coordination of care (as documented) at patient's floor/unit and/or counseling patient: Coding Level of Care Code 55021 Inpt Consult Level 4 Diagnoses Hypertension I10 Cirrhosis K74.60 Stage 3a chronic kidney disease (CKD) N18.31 Acute hyponatremia E87.1
[2021-09-16] MEDS: THIAMINE HCL 300 MG in SODIUM CHLORIDE 0.9% 50 ML IV SCH (09:44)
[2021-09-16] MEDS: FOLIC ACID 1 MG TAB PO SCH (09:45)
[2021-09-16] MEDS: CYCLOBENZAPRINE HCL 5 MG TAB PO SCH ×3 (09:45→21:14)
[2021-09-16] MEDS: PANTOprazole 40 MG TAB PO SCH ×2 (09:46→21:14)
[2021-09-16] MEDS: MAGNESIUM OXIDE 400 MG TAB PO SCH (09:46)
[2021-09-16] MEDS: POLYETHYLENE (MIRALAX) 17 GM PACK PO SCH (09:46)
[2021-09-16] MEDS: METOPROLOL TARTRATE 25 MG TAB PO SCH ×2 (09:46→21:14)
[2021-09-16] MEDS: SENNA 8.6 MG TAB PO SCH ×2 (09:47→10:06)
[2021-09-16 12:32] LABS: BUN Creatinine Ratio 8.5 (10-20); Calcium 8.7 mg/dl (8.5-10.1); Est GFR (African American) 59.2 ml/min; Est GFR (Non-African American) 51.1 ml/min; Potassium 3.9 mmol/L (3.5-5.1)
[2021-09-16] MEDS: AMOXICILLIN/CLAVULANATE 875 MG TAB PO SCH (17:36)
--- NOTE | 2021-09-16 22:55 | Hospitalist Progress Note ---
Date of Service September 16, 2021 Assessment & Plan (1) Acute hyponatremia: Plan: acute on chronic ongoing was 123 on day of admission sodium improved s/p several days of IV lasix (previous physician suspected hypervolemia) sodium yesenia to 129 since stopping the lasix, however, his Na level trended downward this am is 124 urine osm is >300; urine Na is high (>100) SIADH?? other? consulted Dr Carvalho [place] [facility] - he advised 3% saline this am with repeat BMP at noon will also check Na levels tonight and again in am tomorrow appreciate his consultation & recs (2) Acute blood loss anemia: Plan: presumed 2nd to upper GI bleeding from numerous AVMs of the stomach/duodenum as seen on EGD - 09/12/21. s/p APC by Dr Nunn. H/H stable since receiving 3 units PRBCs earlier in the stay. s/p 3 doses of IV venofer while hospitalized. CBC again stable today. cont PPI bid. diet as tolerated. alcohol abstinence needed as heavy etoh will predispose him to repeat episodes of bleeding. (3) Iron deficiency anemia: Plan: transferrin sat <5%. severe microcytosis. all c/w Fe Def. s/p 3 days of IV venofer. checked B12 level - normal. remains on folate supplementation in light of etoh use. cbc in am for stability. (4) AVM (arteriovenous malformation): Plan: numerous - stomach, duodenum - as seen on EGD by Dr Nunn. s/p APC. cause of upper GI bleeding - likely acute/chronic. (5) Cirrhosis: Plan: no esophageal varices seen on EGD this admission. cirrhosis 2nd to etoh. can't rule out a component of VIGIL as well. volume status euvolemic today. no LE edema, no pulm edema, no ascites on recent CT a/p. holding all diuretics today. (6) Obesity: Plan: BMI 38/39 (7) Hypomagnesemia: Plan: 2nd to etoh abuse 1.3 at admission - replaced, improved to 1.7 (8) Hematuria: Plan: 2nd to UTI - resolved (9) UTI (urinary tract infection): Plan: urine cx with klebsiella + enterococcus stop rocephin - change to augmentin f/u on sensitivities to enterococcus (10) Alcohol abuse: Plan: no signs of etoh withdrawal this admission cont thiamine cont folate (11) Hypertension: Plan: in the setting of #1 BPs have been controlled without his usual meds cont metoprolol but HOLD clonidine, hold amlodipine-benazepril hold his diuretics due to low sodium (12) PAT (paroxysmal atrial tachycardia): Plan: 3-4 min long episode this week no symptoms increased beta michael to 75mg BID cont telemetry monitoring (13) Constipation: Plan: resolved cont miralax cont senna Plan: cleared by PT/OT to return home hyponatremia is the only barrier to d/c home hopefully Na levels stay stable overnight and can d/c on 09/17 Admission and Anticipated Discharge Date Admission Date: September 10, 2021 Subjective pt w/o complaints again VERY ANXIOUS to get home today he feels good eating well tele overnight wnl Review of Systems Review of Systems: - voiding w/o difficulty; no hematuria CV - no orthopnea pulm - no dyspnea GI - bloating has not recurred Physical Exam Physical Exam: gen - obese, NAD, lying comfortably in bed mouth - MMM neck - no JVD heart - RRR, s1 s2, no murmur lungs - CTA b/l abd - soft NT ND BS+ ext - no edema, pulses 2 + b/l psych - a/o x 3 Results & Data Results & Data ([facility]) Vital Signs (Past 12 Hours) Vital Signs Temp Pulse Resp BP Pulse Ox 09/16/21 19:44 36.7 C 98 H 18 123/82 98 09/16/21 15:03 36.8 C 94 H 18 128/79 98 09/16/21 11:56 36.7 C 87 18 129/83 97 Laboratory Results Laboratory Results - last 24 hr 09/16/21 09/16/21 09/16/21 06:02 06:02 06:02 WBC 12.37 H RBC 4.55 L Hgb 9.8 L Hct 33.3 L MCV 73.2 L MCH 21.5 L MCHC 29.4 L RDW Std Deviation 65.5 H RDW Coeff of Priscilla 26.3 H Plt Count 389 MPV 9.4 Sodium 124 L Potassium 4.0 Chloride 91 L Carbon Dioxide 21 Anion Gap 12 H BUN 12 Creatinine 1.57 H Est Cr Clr Drug Dosing 70.5 Est GFR ( Amer) 52.5 Est GFR (Non-Af Amer) 45.3 BUN/Creatinine Ratio 7.6 L Glucose 108 H Osmolality 266 L Uric Acid 11.4 H Calcium 9.1 09/16/21 09/16/21 11:59 19:03 WBC RBC Hgb Hct MCV MCH MCHC RDW Std Deviation RDW Coeff of Priscilla Plt Count MPV Sodium 129 L 128 L Potassium 3.9 Chloride 98 Carbon Dioxide 23 Anion Gap 8 BUN 12 Creatinine 1.42 H Est Cr Clr Drug Dosing 78.0 Est GFR ( Amer) 59.2 Est GFR (Non-Af Amer) 51.1 BUN/Creatinine Ratio 8.5 L Glucose 107 H Osmolality Uric Acid Calcium 8.7 PG Care Time/CCT Total # of Minutes Spent Total Time Spent with Patient: Total time spent is greater than 50% in coordination of care (as documented) at patient's floor/unit and/or counseling patient: Coding Level of Care Code 20003 Subseq Hosp Care Lvl 3 Diagnoses Acute blood loss anemia D62 Iron deficiency anemia D50.9 AVM (arteriovenous malformation) Q27.30 Cirrhosis K74.60 Obesity E66.9 Acute hyponatremia E87.1 Hypomagnesemia E83.42 Hematuria R31.9 UTI (urinary tract infection) N39.0 Alcohol abuse F10.10 Hypertension I10 PAT (paroxysmal atrial tachycardia) I47.1 Constipation K59.00
[2021-09-17 07:35] LABS: Hematocrit (blood only) 31.4 % (42-52); Hemoglobin 9.2 g/dL (14.0-18.0); Mean Corpuscular Hemoglobin 21.5 pg (25-34); Mean Corpuscular Hgb Conc 29.3 g/dL (32-36); Mean Corpuscular Volume 73.5 fL (80-100); Mean Platelet Volume 9.4 fL (7.4-10.4); Platelet Count 372 K/uL (130-400); RDW Coefficient of Variation 27.1 % (11.5-14.5); RDW Standard Deviation 68.4 fL (36.4-46.3); Red Blood Count 4.27 M/uL (4.7-6.1); White Blood Count 10.71 K/uL (4.8-10.8)
[2021-09-17 08:13] LABS: Albumin Level 3.4 gm/dl (3.4-5.0); Calcium 8.8 mg/dl (8.5-10.1); Creatinine Clr Calc Pharmacy 80.4 ml/min; Est GFR (African American) 61.3 ml/min; Est GFR (Non-African American) 52.9 ml/min; Phosphorus 3.2 mg/dl (2.5-4.9); Potassium 3.9 mmol/L (3.5-5.1)
[2021-09-17] MEDS: THIAMINE HCL 300 MG in SODIUM CHLORIDE 0.9% 50 ML IV SCH (08:53)
[2021-09-17] MEDS: CYCLOBENZAPRINE HCL 5 MG TAB PO SCH (08:59)
[2021-09-17] MEDS: MAGNESIUM OXIDE 400 MG TAB PO SCH (09:00)
[2021-09-17] MEDS: PANTOprazole 40 MG TAB PO SCH (09:00)
[2021-09-17] MEDS: SENNA 8.6 MG TAB PO SCH (09:01)
[2021-09-17] MEDS: AMOXICILLIN/CLAVULANATE 875 MG TAB PO SCH (09:01)
[2021-09-17] MEDS: METOPROLOL TARTRATE 25 MG TAB PO SCH (09:01)
[2021-09-17] MEDS: POLYETHYLENE (MIRALAX) 17 GM PACK PO SCH (09:01)
[2021-09-17] MEDS: FOLIC ACID 1 MG TAB PO SCH (09:02)
--- NOTE | 2021-09-17 10:35 | Nephrology Progress Note ---
Date of Service September 17, 2021 Assessment & Plan (1) Acute hyponatremia: Plan: Clinically consistent with photomania and likely underlying SIADH. Improving with therapy. Volume status acceptable. Remains relatively euvolemic. Repeat labs ordered for noon. Concerns regarding potential for worsening were discussed in detail. Risks of alcohol or excessive free water were reviewed. Karlos expressed understanding. I discussed the plan of care with Dr. Andrew. If serum s odium remains stable this afternoon, discharge with close follow up will be arranged. Continue oral NaCl 1 gm daily dose discharge. Restrict fluid intake to <1.5 L/d. Repeat labs on Sunday. Follow up with me in the nephrology clinic next week. (2) Stage 3a chronic kidney disease (CKD): Plan: Kidney function stable. Creatinine 1.5 mg/dL. CKD III. Close outpatient follow up encouraged. Volume status acceptable. Medications appropriate for kidney function. (3) Hypertension: Plan: Remains on metoprolol. May restart amlodipine-benazepril on discharge. Hold clonidine. Hold spironolactone. (4) Cirrhosis: Plan: Importance of GI follow up and abstaining from alcohol stressed. Admission and Anticipated Discharge Date Admission Date: September 10, 2021 Subjective No acute events overnight. Strongly expressed desire to go home today. No fluid retention. Appetite is good. Review of Systems Review of Systems: All systems reviewed & are unremarkable except as noted in HPI & below Physical Exam Constitutional: well developed and + morbidly obese; no acute distress Eyes: no scleral abnormality and no corneal abnormality ENMT: Mouth: no oral mucosal abnormality and oral mucous membranes not dry Neck: normal visual inspection and trachea midline Respiratory: normal respiratory effort Auscultation: lungs clear to auscultation bilaterally Cardiovascular: Rate/Rhythm: regular rate Heart Sounds: normal S1 and normal S2 Extremities: + edema Musculoskeletal: Extremities: no cyanosis and no clubbing Skin: normal turgor; no lesions Neurologic: Motor/Sensory: no tremor and no asterixis Psychiatric: Orientation: alert and oriented x 3 Results & Data ([facility]) Vital Signs (Past 12 Hours) Vital Signs Temp Pulse Resp BP BP Pulse Ox 09/17/21 07:47 36.7 C 102 H 18 159/81 H 98 09/17/21 03:07 36.5 C 90 18 133/79 97 09/16/21 23:30 36.7 C 83 18 117/69 96 Laboratory Results Laboratory Results - last 24 hr 09/16/21 09/16/21 09/16/21 11:59 19:03 23:47 WBC RBC Hgb Hct MCV MCH MCHC RDW Std Deviation RDW Coeff of Priscilla Plt Count MPV Sodium 129 L 128 L 130 L Potassium 3.9 Chloride 98 Carbon Dioxide 23 Anion Gap 8 BUN 12 Creatinine 1.42 H Est Cr Clr Drug Dosing 78.0 Est GFR ( Amer) 59.2 Est GFR (Non-Af Amer) 51.1 BUN/Creatinine Ratio 8.5 L Glucose 107 H Calcium 8.7 Phosphorus Albumin 09/17/21 09/17/21 06:24 06:24 WBC 10.71 RBC 4.27 L Hgb 9.2 L Hct 31.4 L MCV 73.5 L MCH 21.5 L MCHC 29.3 L RDW Std Deviation 68.4 H RDW Coeff of Priscilla 27.1 H Plt Count 372 MPV 9.4 Sodium 131 L Potassium 3.9 Chloride 98 Carbon Dioxide 23 Anion Gap 10 BUN 11 Creatinine 1.38 Est Cr Clr Drug Dosing 80.4 Est GFR ( Amer) 61.3 Est GFR (Non-Af Amer) 52.9 BUN/Creatinine Ratio 8.0 L Glucose 89 Calcium 8.8 Phosphorus 3.2 Albumin 3.4 PG Care Time/CCT Total # of Minutes Spent Total Time Spent with Patient: Total time spent is greater than 50% in coordination of care (as documented) at patient's floor/unit and/or counseling patient: Coding Level of Care Code 11473 Subseq Hosp Care Lvl 3 Diagnoses Acute hyponatremia E87.1 Stage 3a chronic kidney disease (CKD) N18.31 Hypertension I10 Cirrhosis K74.60
--- NOTE | 2021-09-17 13:13 | Discharge Summary ---
Date of Service date of admission - September 10, 2021 date of discharge - September 17, 2021 Admission HPI Per Admitting Provider 66 yom with no PCP and has not had medical care in over 4 years. Patient with medical history of, HF, ascites with paracentesis, anemia, morbid obesity, ambulates with walker. Patient comes to the emergency department today via EMS for concerns of increase in dyspnea, tremors, and feeling overtly weak. The patient endorses that this has been ongoing over the past 3 days. In the EMD the patient had routine labs performed, CXR, ECG. His labs revealed HGB of 5.8 with microcytosis, normal LFTs, normal INR, hypomag, hyponatremia, and low HC03. He was type and crossed and consented for blood by EMD with 2 units to transfuse, given thiamine, some magnesium and Protonix. Hospitalist was consulted for admission. Patient is tachycardic with visible hand tremors, he states that drinks 2-3 drinks most nights, but has gone days before without any and has not had any problems with withdraw. The patient endorses that he has not had any diarrhea or dark bowel movements, denies any nausea or vomiting of blood. He does have a decrease in appetite over the past 2 weeks secondary to food not tasting good and feeling tired while eating. He states that he has only been eating once per day. The patient will be admitted to PCU, will send off iron panel and Folate levels, continue with 2-3 units of PRBC transfusion overnight. Will diurese with 20mg of Lasix and FREE WATER restrict the patient overnight for his hyponatremia which appears to be hypervolemic hyponatremia at this time. He has not voided so urine labs are pending and he declines rectal exam. Will obtain CTA of the abdomen and pelvis and evaluate for occult bleeding and/or mass. He has never had an EGD and again declines any colonoscopy discussion. Patient COVID test on admission is: NEGATIVE Principal Diagnosis 1. acute blood loss anemia 2nd to upper GI bleeding 2. severe iron deficiency anemia 3. cirrhosis 4. hyponatremia Discharge Exam gen - obese, NAD, lying comfortably in bed mouth - MMM neck - no JVD heart - RRR, s1 s2, no murmur lungs - CTA b/l abd - soft NT ND BS+ ext - no edema, pulses 2 + b/l psych - a/o x 3 Discharge Data Allergies Allergy/AdvReac Type Severity Reaction Status Date / Time No Known Allergies Allergy Verified 09/10/21 16:01 Consultations [facility] OT Procedures Performed Operation Date: 09/12/21 17:30 Actual Procedures EGD Hemostasis - Dean Nunn MD - Normal esophagus. No varices. - Multiple non-bleeding angioectasias in the stomach. Treated with argon plasma coagulation (APC). - A few non-bleeding angioectasias in the duodenum. Treated with argon plasma coagulation (APC). PRBCs x 3 units IV venofer x 3 infusions Ordered Studies Chest X-Ray 09/10/21 14:18 XR chest 1V portable HISTORY: weakness COMPARISON: None. FINDINGS: The lungs are clear. Cardiac silhouette is mildly enlarged. No pleural effusions. No pneumothorax. IMPRESSION: Mild cardiomegaly. Otherwise, no acute process within the chest. ACT 112: Negative or not required by law. Electronically signed by: Roel Rodrigez M.D. 09/10/2021 3:33 PM Abdomen/Pelvis CTA 09/10/21 16:52 CT angio abdomen pelvis w con HISTORY: eval for abdominal/rectal mass-GI bleed TECHNIQUE: Multiaxial CT images of the abdomen and pelvis were performed on the intravenous administration of 120 cc of Optiray 320 to evaluate the major arterial structures. Maximal intensity projection images were also obtained. COMPARISON STUDY: None. FINDINGS: Mild dependent changes seen at the lung bases. No pneumoperitoneum. No pneumatosis. Advanced degenerative changes within the lumbar spine. Mild anterior wedging at L1 may be due to the Schmorl's nodes or a chronic compression deformity. No acute fractures identified within the visualized osseous structures. There are old, healed left-sided rib fractures. Suboptimal evaluation of the abdomen and pelvis due to the patient's body habitus and artifact from the right side of the abdomen abutting the gantry. Subtle nodular contour to the liver consistent with mild cirrhosis. There are few small gallstones. No gallbladder wall thickening. The pancreas, spleen, and right adrenal gland are unremarkable. Mild nodular thickening of the left adrenal gland is noted. Mild cortical scarring within the kidneys. No hydronephrosis. There are 2 subcentimeter exophytic hypodense lesion within the lower pole of the left kidney with the largest measuring 9 mm. These are technically too small to characterize but statistically represent cysts. No retroperitoneal lymphadenopathy. No pelvic lymphadenopathy. The bladder is unremarkable. No pelvic free fluid. No perirectal abscess identified. Colonic diverticulosis. No evidence for acute diverticulitis. No bowel wall thickening or obstruction. The appendix is not identified and likely surgically absent. Mild calcified plaque within the abdominal aorta. No evidence for an abdominal aortic aneurysm or dissection. The iliac and common femoral arteries are patent. Calcified plaque at the origins of the celiac and superior mesenteric arteries without significant stenosis. The inferior mesenteric artery and renal arteries appear patent. There are 2 left renal arteries. IMPRESSION: 1. No bowel wall thickening or obstruction. 2. Colonic diverticulosis. No evidence for acute diverticulitis. 3. No evidence for rectal mass. However, colonoscopy is considered the test of choice if there is concern for a colorectal lesion. 4. No significant stenosis or occlusion within the aorta, iliac arteries, or major mesenteric vessels. 5. Cirrhotic liver. 6. Cholelithiasis. ACT 112: Negative or not required by law. Electronically signed by: Roel Rodrigez M.D. 09/11/2021 9:16 AM Chest/Abdomen X-ray 09/14/21 14:07 XR abdomen 2V w PA chest CLINICAL HISTORY: bloating; eval fecal load, ileus, etc TECHNIQUE: 2 views of the abdomen were obtained. A single view of the chest was obtained. Comparison: Comparison is made to chest radiograph 09/10/2021 FINDINGS: No lines and tubes are seen. Cardiomegaly is noted. The lungs are clear. No evidence of pleural effusion or pneumothorax. Degenerative changes are seen in the visualized skeleton. The bowel gas pattern is nonobstructive. A moderate amount of stool is noted within the large bowel. IMPRESSION: Nonobstructive bowel gas pattern. ACT 112: Negative or not required by law. Electronically signed by: Kevin Morales M.D. 09/14/2021 3:31 PM Hospital Course (1) Acute blood loss anemia: Hemoglobin at admission was 5.8. Presumed 2nd to upper GI bleeding from numerous AVMs of the stomach/duodenum as seen on EGD - 09/12/21. s/p APC by Dr Nunn. H/H remained stable following 3 units PRBCs. s/p 3 doses of IV venofer while hospitalized as well. Hemoglobin was 9 or higher in the days leading up to discharge. He will continue on PPI twice daily. Alcohol abstinence was strongly advised to prevent additional upper GI irritation and bleeding. (2) AVM (arteriovenous malformation): numerous - stomach, duodenum - as seen on EGD by Dr Nunn. s/p APC. This was the likely cause of his upper GI bleeding and severe anemia - likely acute/chronic. (3) Iron deficiency anemia: transferrin sat <5%. severe microcytosis on CBC. all c/w Fe Deficiency. s/p 3 days of IV venofer. checked B12 level - normal. maintained on folate supplementation in light of etoh use. discharge hemoglobin was 9.2. (4) Acute hyponatremia: acute on chronic. Na level was 123 on day of admission. sodium improved s/p several days of IV lasix with rise in Na to 129. the sodium level then trended back down to 124. urine osm was >300; urine Na was high (>100). consulted Dr Erik Carvalho from [facility] - he advised 3% saline. this improved the sodium level. he ultimately required a 2nd dose of 3% saline. sodium levels indeed improved to 129-131 in the 12 hours prior to discharge. at time of d/c home he was instructed to take NaCl 2grams daily. he will need a follow-up with Dr Carvalho within 5-7 days of discharge. a repeat BMP will be needed in 2-3 days for stability. (5) Cirrhosis: no esophageal varices seen on EGD this admission. cirrhosis 2nd to etoh. can't rule out a component of VIGIL as well. volume status euvolemic in the days leading up to discharge. no LE edema, no pulm edema, no ascites on exam or recent CT a/p. all diuretics held at time of discharge due to #4. (6) Obesity: BMI 38/39 (7) Hypomagnesemia: 2nd to etoh abuse 1.3 at admission - replaced, resolved (8) Hematuria: 2nd to UTI - resolved (9) UTI (urinary tract infection): urine cx with klebsiella + enterococcus initially received rocephin then changed to augmentin will complete a course of augmentin post-discharge to cover both pathogens (10) Alcohol abuse: no signs of etoh withdrawal this admission cont thiamine and folate supplementation post-discharge (11) Hypertension: in the setting of #1 BPs were controlled without his usual meds cont metoprolol but HOLD clonidine, aldactone, and amlodipine-benazepril at discharge metoprolol dose was titrated from 50mg BID to 100mg BID during the hospitalization (12) PAT (paroxysmal atrial tachycardia): 3-4 min long episode during the hospitalization no symptoms from such metoprolol was titrated while hospitalized and he will continue 100mg BID at home no a.fib/flutter seen while here (13) Constipation: resolved cont miralax cont senna cleared by PT/OT to return home at discharge Total Time Total Time Spent Total Time Spent (In Minutes): 50 Discharge Plan Discharge Items Patient Disposition: Home - Self-Care Reason For Visit: WEAKNESS Discharge Diagnosis: 1. upper gastrointestinal bleeding with resulting severe iron deficiency anemia 2. bleeding due to stomach and intestinal "AVMs" (benign blood vessel growths in the lining of the stomach/intestine) 3. severe hyponatremia (low sodium); discharge sodium level 129 4. urinary tract infection 5. cirrhosis of the liver Activity: Resume your previous activity Non-emergency contact: Primary Care Provider and Manager Labor Delivery Call non-emergency contact if: you have any medication questions and your symptoms worsen Follow-up/Referrals: Erik Carvalho DO [Physician] - ([address] Carvalho ) Luis Felipe Briscoe [Primary Care Provider] - Diet: Heart Healthy Fluids: 1500ml (6 cups) Ambulatory Orders: Basic Metabolic Panel (Routine) Timeframe: 20210919 Location: Determined by Patient Ordered By: Daniel Sears Complete Blood Count no Diff (Routine) Timeframe: 20210919 Location: Determined by Patient Ordered By: Daniel Sears Add Attending Provider Instructions: Mr Rea, You were treated for the problems listed above in "discharge diagnoses." You were severely anemic (low red blood cells) at time of admission. Your hemoglobin was 5.8 (normal hemoglobin for a male is 13-14). The anemia was due to severe iron deficiency. You received 3 units of blood and 3 infusions of iron while here. Your hemoglobin is 9.2 on day of discharge. The anemia/iron deficiency was likely due to upper GI bleeding from "AVMs" in your stomach/small intestine. Dr Dean Nunn from [facility] performed an upper endoscopy that showed the AVMs. He used a special device to burn these lesions away. Additional issues addressed include urinary tract infection, low sodium, and high blood pressure. Dr Erik Carvalho from [facility] helped with the low sodium problem. Recommendations: 1. for your urinary tract infection - take amoxicillin-clavulanate 875mg twice daily x 9 days, first dose TONIGHT. Take with food. 2. take a probiotic supplement for 10 days to help prevent diarrhea from your antibiotic. 3. increase your metoprolol to 100mg twice daily for your blood pressure. New script sent to [facility] for you. 4. HOLD the following blood pressure pills -- DO NOT TAKE THESE: * spironolactone * amlodipine-benazepril * clonidine 5. LOWER your cyclobenzaprine (flexeril) to 5mg 3 times daily as needed for muscle spasm. DO NOT DRINK ALCOHOL if you are using this medication. This can cause excessive sleepiness/sedation which could harm you. 6. take thiamine supplement once daily x 30 days. New script sent to [facility]. 7. take salt tablet (sodium chloride) -- 2 tabs daily starting TODAY. Continue the salt tablet until Dr Carvalho sees you in the clinic this week. 8. 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 New script sent to [facility] for you. 9. Please do everything you can to ABSTAIN 100% from alcohol. The alcohol has caused cirrhosis of the liver and can harm your body's salt levels/sodium levels. Follow-up - * Dr Erik Carvalho - nephrology with [facility] - 1 week * blood work - can be done at [facility] (ideally on SUNDAY or SUNDAY OF THIS WEEK) - bring the lab slip with you for that blood draw * new primary care doctor - we will help secure you one; we will contact you next week about a new doctor Return to any hospital if - * you have fevers over 100 degrees * you have severe diarrhea * you have worsening weakness, fatigue, see blood in your stools, see dark/black stools, have abdominal pain, have difficulty with thinking or memory, have shortness of breath or chest pain * any other concerns It was our pleasure to care for you at [facility]! Dr Sears Pending Studies at Discharge: No Stand-Alone Forms: My [facility], Smoking Cessation Medications and DC Order Prescriptions: New thiamine HCl (vitamin B1) 250 mg tablet 250 mg PO DAILY 30 Days Qty: 30 RF: 0 Saccharomyces boulardii 250 mg capsule 250 mg PO DAILY 10 Days Qty: 10 RF: 0 sodium chloride 1 gram tablet 2,000 mg PO DAILY Qty: 30 RF: 0 Continued Otc Nasal Decongestant 2 spry intranasal DAILY PRN (Reason: Congestion) RF: 0 Changed metoprolol tartrate 100 mg tablet 100 mg PO BID Qty: 60 RF: 1 pantoprazole 40 mg tablet,delayed release (DR/EC) 40 mg PO BID Qty: 60 RF: 1 cyclobenzaprine 5 mg tablet 5 mg PO TID PRN (Reason: muscle spasm) Qty: 30 RF: 0 Discontinued spironolactone 25 mg tablet 25 mg PO BID RF: 0 clonidine HCl 0.2 mg tablet 0.2 mg PO HS RF: 0 amlodipine-benazepril 10-40 mg capsule 1 cap PO DAILY RF: 0 Discharge Orders: Discharge Order (Routine); Ordered 09/17/21 Ordered By: Daniel Sears Admission Data Admit Date/Time: 09/10/21 16:36 Attending Provider: Daniel Sears Admit Provider: Lucina Agudelo Primary Care Provider: Luis Felipe Briscoe Other Providers: Lucina Agudelo ; Dean Nunn ; Erik Carvalho Other Interventions: Discharge Summary Assessment (RN) Last Done: 09/17/21 13:50 Coding Level of Care Code D/C DAY MANAGEMENT >30 MINS Diagnoses Acute hyponatremia E87.1 Acute blood loss anemia D62 Iron deficiency anemia D50.9 AVM (arteriovenous malformation) Q27.30 Cirrhosis K74.60 Obesity E66.9 Hypomagnesemia E83.42 Hematuria R31.9 UTI (urinary tract infection) N39.0 Alcohol abuse F10.10 Hypertension I10 PAT (paroxysmal atrial tachycardia) I47.1 Constipation K59.00
== END 2021-09-17 15:59 | disposition home or self-care (01) | DRG 378 ==
LOC: ED 13:59 → SUATTDRO 16:36 → 2S 16:36
DX: K31.811 Angiodysplasia of stomach and duodenum with bleeding; Z87.891 Personal history of nicotine dependence; I13.0 Hypertensive heart and chronic kidney disease with heart failure and stage 1 through stage 4 chronic kidney disease, or unspecified chronic kidney disease; N17.9 Acute kidney failure, unspecified; D62 Acute posthemorrhagic anemia; I47.1 Supraventricular tachycardia; N39.0 Urinary tract infection, site not specified; I44.0 Atrioventricular block, first degree; I87.2 Venous insufficiency (chronic) (peripheral); R31.0 Gross hematuria; K59.00 Constipation, unspecified; N18.31 Chronic kidney disease, stage 3a; E83.42 Hypomagnesemia; E87.1 Hypo-osmolality and hyponatremia; I50.32 Chronic diastolic (congestive) heart failure; B95.2 Enterococcus as the cause of diseases classified elsewhere; K70.30 Alcoholic cirrhosis of liver without ascites; Z68.39 Body mass index [BMI] 39.0-39.9, adult; F10.20 Alcohol dependence, uncomplicated; E66.9 Obesity, unspecified; B96.1 Klebsiella pneumoniae [K. pneumoniae] as the cause of diseases classified elsewhere

== ENCOUNTER 2022-02-26 17:51 | Inpatient (IN) ==
--- NOTE | 2022-02-26 18:13 | Emergency Department Note ---
Impression & Plan Atrial paroxysmal tachycardia, Chronic knee pain ADMIT ED Provider Note HPI: The patient is a 67-year-old male with morbid obesity, osteoarthritis, presents the emergency department with a chief complaint of left knee pain after a fall. Patient is a vague historian, states that he was ambulating from the restroom and fell onto his left knee when he lost balance. He does not think that he hit his head, states he did not lose consciousness. On arrival here to the ED the patient is conversational, he is in no acute distress, he does have a large contusion over the left knee and several abrasions to the right arm but otherwise no outward evidence of trauma. Patient is alert and hemodynamically stable on arrival. ROS: -MSK: Left knee pain/contusion status post fall -Skin: Abrasions to right arm status post fall *10 point review systems was conducted and is otherwise negative unless stated above *Outpatient medications and allergy history reviewed PE: General: Alert, morbidly obese HEENT: Normocephalic, trachea midline Eyes: Extraocular eye movement is intact, no scleral erythema Pulmonary: Clear to auscultation bilaterally, no wheezing Cardio: Regular rate and rhythm GI: Abdomen is soft, nontender : No suprapubic tenderness MSK: Contusion to the left knee without open wounds or laceration to the left knee Skin: No evidence of rash, multiple abrasions to the right upper extremity without active bleeding Neuro: Alert, no focal deficits Psychiatric: Cooperative site monitor: - An order was placed for continuous cardiac monitoring - Patient was noted to be in sinus rhythm with a rate of 101 EKG: Rate: 104 Rhythm: Sinus rhythm Intervals: Within normal limits ST changes: No ST elevation Time: 1758 Interventions provided in ED: -IV metoprolol, p.o. metoprolol tartrate (home dose), IV morphine, p.o. Tylenol Medical Decision Making: Patient presented to the emergency department with a chief complaint of bilateral knee pain after a fall today. Patient has a history of morbid obesity and osteoarthritis, states he does have some ambulatory issues at baseline and usually uses a walker at home. Patient had a mechanical fall today but he was somewhat vague about the details of his fall, denied hitting his head but stated he was unsure. CT imaging of the head was obtained because of this and does not show any evidence of any acute intracranial abnormality, x-ray imaging of the chest does not show any evidence of rib fractures or pneumothorax, x-ray imaging of the knees bilaterally shows evidence of osteoarthritis but no fracture or dislocation bilaterally. Lab work was obtained that is largely unremarkable, patient is hemodynamically stable here in the ED, I discussed possibilities including discharge home or possibly placement for rehabilitation and to arrange for orthopedic consultation for elective knee replacement as I think this is likely what the patient will require. He states most of his pain is in the right knee but he has issues bilaterally. Case management was consulted, patient was thought to be a good candidate for placement at [facility] and originally this was to take about 3 h ours however on reevaluation with case management we are expecting an answer from [facility] early in the morning. While awaiting answer on placement at rehabilitation facility, at approximately 3:30 AM the patient had an episode of tachycardia consistent with his history of paroxysmal atrial tachycardia that he is experienced previously. EKG does not show any evidence of atrial fibrillation, patient was given his home dose of metoprolol in addition to a dose IV, he denied any chest pain with this episode however stated he did have some mild shortness of breath. Stat troponin was obtained that does show elevation to approximately 40, patient was given aspirin in the ED, EKG did not show any acute ischemic changes and again, patient denies any chest pain. I feel that this episode is likely related to his underlying issues with paroxysmal atrial tachycardia. He will require admission for serial trending of troponin and complete resolution of his tachycardia as he remains mildly tachycardic in the 120s despite receiving IV and p.o. metoprolol. He complains about discomfort in the bed as he states there is not enough cushioning, and therefore he was provided a larger hospital bed while in the ED. [facility] was consulted for admission and the patient was placed for admission in stable condition. Diagnosis: 1. Osteoarthritis of the bilateral knees 2. Ambulatory dysfunction 3. Mechanical fall 4. Left knee contusion 5. Morbid obesity 6. Paroxysmal atrial tachycardia 7. Elevated troponin Disposition: Admission Billy Arceo DO Emergency Medicine Past Med/Surg History Medical History Acute hyponatremia Ascites CHF (congestive heart failure) Edema, peripheral Hypomagnesemia Transfusion history Surgical History History of appendectomy Family History Other Family history non-contributory Social History Smoking Status: Current some day smoker Tobacco Type: Cigarettes Cigarettes Per Day: 10; Second Hand Exposure: No; Hx Alcohol Use: Yes Alcohol type: beer and hard liquor Hx Substance Use: No Preferred Language: Lithuanian Communication Ability: Effective Patient Observation Assistant Required: No Beliefs That Will Affect Care: None Current Living Situation: Parent How many Children do You have: 2 Feels Safe at Home: Yes Assistive Devices: Glasses and Walker Allergies Allergies Allergy/AdvReac Type Severity Reaction Status Date / Time No Known Allergies Allergy Verified 02/26/22 19:46 Home Meds Home Medications Medication Instructions Recorded Confirmed Otc Nasal Decongestant 2 spry intranasal DAILY PRN 09/10/21 02/26/22 Congestion benazepril 40 mg tablet 40 mg PO DAILY 02/26/22 02/26/22 clonidine HCl 0.2 mg tablet 0.2 mg PO BID 02/26/22 02/26/22 cyanocobalamin (vitamin B-12) 250 250 mcg PO DAILY 02/26/22 02/26/22 mcg tablet cyclobenzaprine 5 mg tablet 5 mg PO DAILY PRN muscle spasm 02/26/22 02/26/22 ferrous sulfate 325 mg (65 mg 325 mg PO DAILY 02/26/22 02/26/22 iron) tablet folic acid 1 mg tablet 1 mg PO DAILY 02/26/22 02/26/22 [id number] acid 0.4 1 tab PO DAILY 02/26/22 02/26/22 mg-lycopene 300 mcg-lutein 250 mcg tablet (Centrum Silver) spironolactone 25 mg tablet 25 mg PO DAILY 02/26/22 02/26/22 Previous Rx's Medication Instructions Recorded metoprolol tartrate 100 mg tablet 100 mg PO BID #60 tabs 09/17/21 pantoprazole 40 mg tablet,delayed 40 mg PO BID #60 tabs 09/17/21 release Results & Data (ED) Vital Signs Vital Signs - 24 hr 02/26/22 17:40 02/26/22 17:40 02/26/22 18:08 Temperature 36.7 C Temperature Source Oral Pulse Rate 105 H 102 H Pulse Rate [Apical] 105 H Pulse Rate from SpO2 Sensor Pulse Rhythm Regular Regular Pulse Rhythm [Apical] Regular Pulse Strength Normal Pulse Strength [Apical] Normal Respiratory Rate 19 19 19 Respiratory Effort / Characteristics Non-Labored Non-Labored Respiratory Depth Normal Normal Respiratory Pattern Regular Regular Blood Pressure 155/106 H Blood Pressure [Right Arm] 155/106 H Blood Pressure Mean 122 Blood Pressure Mean [Right Arm] 122 Blood Pressure Position Lying Blood Pressure Position [Right Arm] Lying Pulse Oximetry 98 96 98 Oxygen Delivery Method Room Air Room Air Room Air Sepsis Recent Fever Within 48 Hours No Sepsis New/Unexplained Change in Mental Status N/A Sepsis Action Taken by Nursing No Action Required 02/26/22 17:59 02/26/22 17:59 02/26/22 18:00 Temperature Temperature Source Pulse Rate 101 H Pulse Rate [Apical] Pulse Rate from SpO2 Sensor 100 H Pulse Rhythm Pulse Rhythm [Apical] Pulse Strength Pulse Strength [Apical] Respiratory Rate 18 Respiratory Effort / Characteristics Respiratory Depth Respiratory Pattern Blood Pressure 165/93 H 155/106 H Blood Pressure [Right Arm] Blood Pressure Mean 117 122 Blood Pressure Mean [Right Arm] Blood Pressure Position Blood Pressure Position [Right Arm] Pulse Oximetry 96 Oxygen Delivery Method Sepsis Recent Fever Within 48 Hours Sepsis New/Unexplained Change in Mental Status Sepsis Action Taken by Nursing 02/26/22 18:00 02/26/22 18:30 02/26/22 18:34 Temperature Temperature Source Pulse Rate 98 H 104 H Pulse Rate [Apical] Pulse Rate from SpO2 Sensor 100 H 101 H Pulse Rhythm Pulse Rhythm [Apical] Pulse Strength Pulse Strength [Apical] Respiratory Rate 23 26 H 17 Respiratory Effort / Characteristics Respiratory Depth Respiratory Pattern Blood Pressure Blood Pressure [Right Arm] Blood Pressure Mean Blood Pressure Mean [Right Arm] Blood Pressure Position Blood Pressure Position [Right Arm] Pulse Oximetry 98 96 Oxygen Delivery Method Sepsis Recent Fever Within 48 Hours Sepsis New/Unexplained Change in Mental Status Sepsis Action Taken by Nursing 02/26/22 21:41 02/26/22 21:42 02/26/22 22:05 Temperature Temperature Source Pulse Rate Pulse Rate [Apical] Pulse Rate from SpO2 Sensor Pulse Rhythm Pulse Rhythm [Apical] Pulse Strength Pulse Strength [Apical] Respiratory Rate Respiratory Effort / Characteristics Respiratory Depth Respiratory Pattern Blood Pressure 131/96 Blood Pressure [Right Arm] Blood Pressure Mean 107 Blood Pressure Mean [Right Arm] Blood Pressure Position Blood Pressure Position [Right Arm] Pulse Oximetry 97 98 Oxygen Delivery Method Sepsis Recent Fever Within 48 Hours Sepsis New/Unexplained Change in Mental Status Sepsis Action Taken by Nursing 02/26/22 22:32 02/26/22 23:34 02/27/22 01:11 Temperature 36.7 C Temperature Source Oral Pulse Rate 100 H Pulse Rate [Apical] 90 130 H Pulse Rate from SpO2 Sensor Pulse Rhythm Pulse Rhythm [Apical] Pulse Strength Pulse Strength [Apical] Respiratory Rate 18 18 Respiratory Effort / Characteristics Respiratory Depth Respiratory Pattern Blood Pressure 131/96 Blood Pressure [Right Arm] 136/73 158/108 H Blood Pressure Mean 107 Blood Pressure Mean [Right Arm] 94 124 Blood Pressure Position Blood Pressure Position [Right Arm] Lying Pulse Oximetry 97 97 96 Oxygen Delivery Method Room Air Room Air Sepsis Recent Fever Within 48 Hours Sepsis New/Unexplained Change in Mental Status Sepsis Action Taken by Nursing 02/27/22 03:18 02/27/22 03:30 02/27/22 04:00 Temperature Temperature Source Pulse Rate 141 H 118 H Pulse Rate [Apical] 120 H Pulse Rate from SpO2 Sensor Pulse Rhythm Pulse Rhythm [Apical] Pulse Strength Pulse Strength [Apical] Respiratory Rate 20 16 Respiratory Effort / Characteristics Respiratory Depth Respiratory Pattern Blood Pressure 127/95 175/108 H Blood Pressure [Right Arm] 147/91 H Blood Pressure Mean 130 Blood Pressure Mean [Right Arm] 109 Blood Pressure Position Blood Pressure Position [Right Arm] Pulse Oximetry 95 97 Oxygen Delivery Method Room Air Sepsis Recent Fever Within 48 Hours Sepsis New/Unexplained Change in Mental Status Sepsis Action Taken by Nursing 02/27/22 04:42 02/27/22 05:00 Temperature Temperature Source Pulse Rate 103 H 94 H Pulse Rate [Apical] Pulse Rate from SpO2 Sensor 93 H Pulse Rhythm Pulse Rhythm [Apical] Pulse Strength Pulse Strength [Apical] Respiratory Rate 19 15 Respiratory Effort / Characteristics Respiratory Depth Respiratory Pattern Blood Pressure 144/88 H 159/99 H Blood Pressure [Right Arm] Blood Pressure Mean 106 119 Blood Pressure Mean [Right Arm] Blood Pressure Position Blood Pressure Position [Right Arm] Pulse Oximetry 96 93 Oxygen Delivery Method Sepsis Recent Fever Within 48 Hours Sepsis New/Unexplained Change in Mental Status Sepsis Action Taken by Nursing Laboratory Data Result diagrams: 02/27/22 09:05 02/26/22 18:12 Lab Results 02/26/22 02/26/22 02/26/22 Range/Units 18:12 18:12 18:12 WBC 7.57 (4.8-10.8) K/ul RBC 3.70 L (4.63-6.08) M/uL Hgb 11.0 L (14.0-18.0) g/dl Hct 34.2 L (40.1-51.0) % MCV 92.4 (80.0-100.0) fL MCH 29.7 (25.0-34.0) pg MCHC 32.2 (32.0-36.0) g/dL RDW Std Deviation 51.1 H (36.4-46.3) fL RDW Coeff of Priscilla 15.0 H (11.5-14.5) % Plt Count 237 (130-400) K/uL MPV 10.5 (9.4-12.4) fL Immature Gran % (Auto) 0.7 % Neut % (Auto) 75.0 % Lymph % (Auto) 14.3 % Turner % (Auto) 8.5 % Eos % (Auto) 0.8 % Baso % (Auto) 0.7 % Neut # (Auto) 5.69 (1.4-6.5) K/uL Lymph # (Auto) 1.08 L (1.2-3.4) K/uL Turner # (Auto) 0.64 (0.24-0.82) K/uL Eos # (Auto) 0.06 (0-0.50) K/uL Baso # (Auto) 0.05 (0-0.2) K/uL Immature Gran # (Auto) 0.05 H (0.00-0.02) K/uL PT 11.4 (9.0-12.0) Seconds INR 1.1 (0.9-1.1) Sodium 128 L (136-145) mmol/L Potassium 4.1 (3.5-5.1) mmol/L Chloride 94 L (98-107) mmol/L Carbon Dioxide 25 (21-32) mmol/L Anion Gap 9 (3-11) BUN 12 (6-23) mg/dl Creatinine 1.13 (0.6-1.4) mg/dl Est Cr Clr Drug Dosing 98.8 ml/min Est GFR ( Amer) 77.5 ml/min Est GFR (Non-Af Amer) 66.9 ml/min BUN/Creatinine Ratio 10.6 (10-20) Glucose 99 (70-99(Fasting)) mg/dl Calcium 9.1 (8.5-10.1) mg/dl Total Bilirubin 0.4 (0.2-1.0) mg/dl AST 31 (13-39) U/L ALT 19 (7-52) U/L Alkaline Phosphatase 107 H (34-104) U/L Troponin I High Sens (0-20) pg/ml Total Protein 7.7 (6.0-8.3) gm/dl Albumin 3.9 (3.4-5.0) gm/dl Globulin 3.8 (2.5-4.0) gm/dl Albumin/Globulin Ratio 1.0 (0.9-2) Urine Color Urine Appearance (Clear) Urine pH (4.5-7.5) Ur Specific [place] (1.000-1.030) Urine Protein (Negative) Urine Glucose (UA) (Negative) Urine Ketones (Negative) Urine Blood (Negative) Urine Nitrite (Negative) Urine Bilirubin (Negative) Urine Urobilinogen (Negative) Ur Leukocyte Esterase (Negative) SARS-CoV-2, RNA, NAAT (NEGATIVE) 02/26/22 02/26/22 02/27/22 Range/Units 21:38 21:38 03:20 WBC (4.8-10.8) K/ul RBC (4.63-6.08) M/uL Hgb (14.0-18.0) g/dl Hct (40.1-51.0) % MCV (80.0-100.0) fL MCH (25.0-34.0) pg MCHC (32.0-36.0) g/dL RDW Std Deviation (36.4-46.3) fL RDW Coeff of Priscilla (11.5-14.5) % Plt Count (130-400) K/uL MPV (9.4-12.4) fL Immature Gran % (Auto) % Neut % (Auto) % Lymph % (Auto) % Turner % (Auto) % Eos % (Auto) % Baso % (Auto) % Neut # (Auto) (1.4-6.5) K/uL Lymph # (Auto) (1.2-3.4) K/uL Turner # (Auto) (0.24-0.82) K/uL Eos # (Auto) (0-0.50) K/uL Baso # (Auto) (0-0.2) K/uL Immature Gran # (Auto) (0.00-0.02) K/uL PT (9.0-12.0) Seconds INR (0.9-1.1) Sodium (136-145) mmol/L Potassium (3.5-5.1) mmol/L Chloride (98-107) mmol/L Carbon Dioxide (21-32) mmol/L Anion Gap (3-11) BUN (6-23) mg/dl Creatinine (0.6-1.4) mg/dl Est Cr Clr Drug Dosing ml/min Est GFR ( Amer) ml/min Est GFR (Non-Af Amer) ml/min BUN/Creatinine Ratio (10-20) Glucose (70-99(Fasting)) mg/dl Calcium (8.5-10.1) mg/dl Total Bilirubin (0.2-1.0) mg/dl AST (13-39) U/L ALT (7-52) U/L Alkaline Phosphatase (34-104) U/L Troponin I High Sens 40.5 H (0-20) pg/ml Total Protein (6.0-8.3) gm/dl Albumin (3.4-5.0) gm/dl Globulin (2.5-4.0) gm/dl Albumin/Globulin Ratio (0.9-2) Urine Color Yellow Urine Appearance Clear (Clear) Urine pH 6.0 (4.5-7.5) Ur Specific [place] 1.008 (1.000-1.030) Urine Protein Negative (Negative) Urine Glucose (UA) Negative (Negative) Urine Ketones Negative (Negative) Urine Blood Negative (Negative) Urine Nitrite Negative (Negative) Urine Bilirubin Negative (Negative) Urine Urobilinogen Negative (Negative) Ur Leukocyte Esterase Negative (Negative) SARS-CoV-2, RNA, NAAT NEGATIVE (NEGATIVE) Administered Medications Aspirin (Aspirin 81 Mg Ectab) 81 mg PO QAM [facility] Stop: 03/29/22 09:29 Last Admin: 02/27/22 09:45 Dose: 81 mg Documented By: DTT Clonidine HCl (Clonidine Hcl 0.1 Mg Tab) 0.2 mg PO BID [facility] Stop: 03/29/22 09:29 Last Admin: 02/27/22 09:49 Dose: Not Given Documented By: DTT Cyanocobalamin (Cyanocobalamin (B-12) 500 Mcg Tablet) 250 mcg PO DAILY [facility] Stop: 03/29/22 09:29 Last Admin: 02/27/22 09:45 Dose: 250 mcg Documented By: DTT Enalapril Maleate (Enalapril Maleate 10 Mg Tab) 40 mg PO DAILY [facility] Stop: 03/29/22 09:29 Last Admin: 02/27/22 09:45 Dose: 40 mg Documented By: DTT Ferrous Sulfate (Ferrous Sulfate 325 Mg Tab) 325 mg PO DAILY [facility] Stop: 03/29/22 09:29 Last Admin: 02/27/22 09:48 Dose: Not Given Documented By: DTT Folic Acid (Folic Acid 1 Mg Tab) 1 mg PO DAILY [facility] Stop: 03/29/22 09:29 Last Admin: 02/27/22 09:45 Dose: 1 mg Documented By: DTT Sodium Chloride (Nss) 500 mls @ 80 mls/hr IV .Q6H15M [facility] Stop: 02/27/22 18:29 Last Admin: 02/27/22 06:19 Dose: 80 mls/hr Documented By: VASU Metoprolol Tartrate (Metoprolol Tartrate 100 Mg Tab) 100 mg PO BID [facility] Stop: 03/29/22 09:29 Last Admin: 02/27/22 09:45 Dose: 100 mg Documented By: DTT Pantoprazole Sodium (Pantoprazole 40 Mg Tab) 40 mg PO BID [facility] Stop: 03/29/22 09:29 Last Admin: 02/27/22 09:44 Dose: 40 mg Documented By: DTT Spironolactone (Spironolactone 25 Mg Tab) 25 mg PO DAILY [facility] Stop: 03/29/22 09:29 Last Admin: 02/27/22 09:47 Dose: Not Given Documented By: DTT Discontinued Medications Acetaminophen (Acetaminophen 500 Mg Tab) 1,000 mg PO NOW STA Stop: 02/27/22 03:49 Last Admin: 02/27/22 03:52 Dose: 1,000 mg Documented By: KMSina Aspirin (Aspirin Chew 324 Mg) 324 mg PO NOW STA Stop: 02/27/22 04:12 Last Admin: 02/27/22 04:16 Dose: 324 mg Documented By: LH Metoprolol Tartrate (Metoprolol Tartrate 1 Mg/Ml Vial) 5 mg IV NOW STA Stop: 02/27/22 03:17 Last Admin: 02/27/22 03:18 Dose: 5 mg Documented By: ESTEFANY Metoprolol Tartrate (Metoprolol Tartrate 100 Mg Tab) 100 mg PO ONCE ONE Stop: 02/27/22 03:32 Last Admin: 02/27/22 04:00 Dose: 100 mg Documented By: ESTEFANY Morphine Sulfate (Morphine Sulfate 4 Mg/Ml 1 Ml Carp\Vial) 4 mg IV NOW STA Stop: 02/26/22 23:34 Last Admin: 02/26/22 23:38 Dose: 4 mg Documented By: Morphine Sulfate (Morphine Sulfate 4 Mg/Ml 1 Ml Carp\Vial) 4 mg IV NOW STA Stop: 02/27/22 04:07 Last Admin: 02/27/22 04:15 Dose: 4 mg Documented By: Imaging Data Radiologist's Impression: Chest X-Ray 02/26/22 18:08 XR chest 1V portable HISTORY: 67 years-old Male fall acute chest trauma status post fall COMPARISON: Acute abdominal series radiographs 09/14/2021 TECHNIQUE: AP view of the chest FINDINGS: Cardiac silhouette is enlarged. Atherosclerosis of the aorta. No pneumothorax, pleural effusion, airspace consolidation or overt pulmonary edema. Bones appear grossly intact. IMPRESSION: No acute process. ACT 112: Negative or not required by law. The above report was generated using voice recognition software. It may contain grammatical, syntax or spelling errors. Electronically signed by: Jesse Oglesby M.D. 02/26/2022 7:46 PM Hip/Pelvis X-Ray 02/26/22 18:08 XR hip WIL 2v w pelvis HISTORY: 67 years-old Male fall . Pelvis pain status post fall COMPARISON: Acute abdominal series radiographs 09/14/2021 TECHNIQUE: AP view of the pelvis with 2 views of the hips FINDINGS: Severe degeneration of the lower lumbar spine. Mild to moderate osteoarthritis of the hips. No acute fracture, dislocation or avascular necrosis. Unchanged left pelvic basin calcifications suggestive of a phlebolith. IMPRESSION: No acute fracture or dislocation. ACT 112: Negative or not required by law. The above report was generated using voice recognition software. It may contain grammatical, syntax or spelling errors. Electronically signed by: Jesse Oglesby M.D. 02/26/2022 7:[address] 02/26/22 18:09 CT head/brain wo con CLINICAL HISTORY: 67 years-old Male with Trauma/fall. Acute head trauma status post fall TECHNIQUE: Multiple axial CT images of the head were obtained without contrast. A dose lowering technique was utilized adhering to the principles of ALARA. CT DOSE: 729.78 mGycm COMPARISON: None. FINDINGS: No acute intracranial hemorrhage, midline shift, intracranial mass, hydrocephalus, territorial ischemia or abnormal extra-axial collection. Motion degraded exam. Age-related involutional changes. White matter hypodensities suggestive of chronic microvascular ischemic disease. The calvarium is intact. Likely benign partially calcified lesion of the right parietal scalp, 1.7 cm. The paranasal sinuses, mastoid air cells, and middle ear cavities are clear. IMPRESSION: No acute intracranial abnormality or calvarial fracture. ACT 112: Negative or not required by law. The above report was generated using voice recognition software. It may contain grammatical, syntax or spelling errors. Electronically signed by: Jesse Oglesby M.D. 02/26/2022 7:12 PM Knee X-Ray 02/26/22 18:09 XR knee RT 1 or 2V routine, XR knee LT 1 or 2V routine HISTORY: 67 years-old Male fall acute bowel knee pain status post fall COMPARISON: None TECHNIQUE: 2 views of the bilateral knees FINDINGS: RIGHT: Severe tricompartmental osteoarthritis. 10 mm medial subluxation of the distal femur in relation to the proximal tibia appears chronic. Small to moderate joint effusion with circumferential soft tissue swelling. No definite acute fracture or dislocation identified. LEFT: Severe medial and patellofemoral with moderate lateral compartment osteoarthrit is. There is a few millimeters of chronic appearing medial subluxation of the distal femur in relation to the proximal tibia. Small to moderate joint effusion with circumferential soft tissue swelling. IMPRESSION: 1. Tricompartmental osteoarthritis of the knees without acute fracture or dislocation identified. 2. Bilateral joint effusions with soft tissue swelling. ACT 112: Negative or not required by law. The above report was generated using voice recognition software. It may contain grammatical, syntax or spelling errors. Electronically signed by: Jesse Oglesby M.D. 02/26/2022 7:51 PM Knee X-Ray 02/26/22 18:09 XR knee RT 1 or 2V routine, XR knee LT 1 or 2V routine HISTORY: 67 years-old Male fall acute bowel knee pain status post fall COMPARISON: None TECHNIQUE: 2 views of the bilateral knees FINDINGS: RIGHT: Severe tricompartmental osteoarthritis. 10 mm medial subluxation of the distal femur in relation to the proximal tibia appears chronic. Small to moderate joint effusion with circumferential soft tissue swelling. No definite acute fracture or dislocation identified. LEFT: Severe medial and patellofemoral with moderate lateral compartment osteoarthritis. There is a few millimeters of chronic appearing medial subluxation of the distal femur in relation to the proximal tibia. Small to moderate joint effusion with circumferential soft tissue swelling. IMPRESSION: 1. Tricompartmental osteoarthritis of the knees without acute fracture or dislocation identified. 2. Bilateral joint effusions with soft tissue swelling. ACT 112: Negative or not required by law. The above report was generated using voice recognition software. It may contain grammatical, syntax or spelling errors. Electronically signed by: Jesse Oglesby M.D. 02/26/2022 7:51 PM Discharge Plan Visit Data Chief Complaint: Fall ED Provider: Billy Arceo Discharge Problem: Atrial paroxysmal tachycardia, Chronic knee pain Patient Disposition: Admitted As Inpatient Discharge Instructions Interventions: ED Discharge Assessment Last Done: 02/27/22 07:43 : Chronic knee pain Qualifiers: Laterality: bilateral Qualified Code(s): M25.561 - Pain in right knee
[2022-02-26 18:35] LABS: INR 1.1 (0.9-1.1); Prothrombin Time 11.4 Seconds (9.0-12.0)
[2022-02-26 19:07] LABS: Basophils # (auto) 0.05 K/uL (0-0.2); Basophils % (auto) 0.7 %; Eosinophils # (auto) 0.06 K/uL (0-0.50); Eosinophils % (auto) 0.8 %; Hematocrit (blood only) 34.2 % (40.1-51.0); Immature Granulocytes # (auto) 0.05 K/uL (0.00-0.02); Immature Granulocytes % (auto) 0.7 %; Lymphocytes # (auto) 1.08 K/uL (1.2-3.4); Lymphocytes % (auto) 14.3 %; Mean Corpuscular Hemoglobin 29.7 pg (25.0-34.0); Mean Corpuscular Hgb Conc 32.2 g/dL (32.0-36.0); Mean Corpuscular Volume 92.4 fL (80.0-100.0); Mean Platelet Volume 10.5 fL (9.4-12.4); Monocytes # (auto) 0.64 K/uL (0.24-0.82); Monocytes % (auto) 8.5 %; Neutrophils # (auto) 5.69 K/uL (1.4-6.5); Platelet Count 237 K/uL (130-400); RDW Standard Deviation 51.1 fL (36.4-46.3); White Blood Count 7.57 K/ul (4.8-10.8)
[2022-02-26 19:13] LABS: Albumin Level 3.9 gm/dl (3.4-5.0); BUN Creatinine Ratio 10.6 (10-20); Bilirubin,Total 0.4 mg/dl (0.2-1.0); Calcium 9.1 mg/dl (8.5-10.1); Creatinine Clr Calc Pharmacy 98.8 ml/min; Est GFR (African American) 77.5 ml/min; Est GFR (Non-African American) 66.9 ml/min; Globulin 3.8 gm/dl (2.5-4.0); Potassium 4.1 mmol/L (3.5-5.1); Total Protein 7.7 gm/dl (6.0-8.3)
--- NOTE | 2022-02-26 19:14 | CT Scan Report ---
CT head/brain wo con CLINICAL HISTORY: 67 years-old Male with Trauma/fall. Acute head trauma status post fall TECHNIQUE: Multiple axial CT images of the head were obtained without contrast. A dose lowering tech nique was utilized adhering to the principles of ALARA. CT DOSE: 729.78 mGycm COMPARISON: None. FINDINGS: No acute intracranial hemorrhage, midline shift, intracranial mass, hydrocephalus, territorial ischem ia or abnormal extra-axial collection. Motion degraded exam. Age-related involutional changes. White matter hypodensities suggestive of chronic microvascular ischemic disease. The calvarium is intact. Likely benign partially calcified lesion of the right parietal scalp, 1.7 cm . The paranasal sinuses, mastoid air cells, and middle ear cavities are clear. IMPRESSION: No acute intracranial abnormality or calvarial fracture. ACT 112: Negative or not required by law. The above report was generated using voice recognition software. It may contain grammatical, syntax o r spelling errors. Electronically signed by: Jesse Oglesby M.D. 02/26/2022 7:12 PM
--- NOTE | 2022-02-26 19:47 | XRay Report ---
XR chest 1V portable HISTORY: 67 years-old Male fall acute chest trauma status post fall COMPARISON: Acute abdominal series radiographs 09/14/2021 TECHNIQUE: AP view of the chest FINDINGS: Cardiac silhouette is enlarged. Atherosclerosis of the aorta. No pneumothorax, pleural effusion, airs pace consolidation or overt pulmonary edema. Bones appear grossly intact. IMPRESSION: No acute process. ACT 112: Negative or not required by law. The above report was generated using voice recognition software. It may contain grammatical, syntax o r spelling errors. Electronically signed by: Jesse Oglesby M.D. 02/26/2022 7:46 PM
--- NOTE | 2022-02-26 19:49 | XRay Report ---
XR hip WIL 2v w pelvis HISTORY: 67 years-old Male fall . Pelvis pain status post fall COMPARISON: Acute abdominal series radiographs 09/14/2021 TECHNIQUE: AP view of the pelvis with 2 views of the hips FINDINGS: Severe degeneration of the lower lumbar spine. Mild to moderate osteoarthritis of the hips. No acute fracture, dislocation or avascular necrosis. Unchanged left pelvic basin calcifications suggestive of a phlebolith. IMPRESSION: No acute fracture or dislocation. ACT 112: Negative or not required by law. The above report was generated using voice recognition software. It may contain grammatical, syntax o r spelling errors. Electronically signed by: Jesse Oglesby M.D. 02/26/2022 7:47 PM
--- NOTE | 2022-02-26 19:53 | XRay Report ---
XR knee RT 1 or 2V routine, XR knee LT 1 or 2V routine HISTORY: 67 years-old Male fall acute bowel knee pain status post fall COMPARISON: None TECHNIQUE: 2 views of the bilateral knees FINDINGS: RIGHT: Severe tricompartmental osteoarthritis. 10 mm medial subluxation of the distal femur in relation to t he proximal tibia appears chronic. Small to moderate joint effusion with circumferential soft tissue swelling. No definite acute fracture or dislocation identified. LEFT: Severe medial and patellofemoral with moderate lateral compartment osteoarthritis. There is a few mil limeters of chronic appearing medial subluxation of the distal femur in relation to the proximal tibi a. Small to moderate joint effusion with circumferential soft tissue swelling. IMPRESSION: 1. Tricompartmental osteoarthritis of the knees without acute fracture or dislocation identified. 2. Bilateral joint effusions with soft tissue swelling. ACT 112: Negative or not required by law. The above report was generated using voice recognition software. It may contain grammatical, syntax o r spelling errors. Electronically signed by: Jesse Oglesby M.D. 02/26/2022 7:51 PM
[2022-02-26 22:28] LABS: Appearance Urine Clear (Clear); Bilirubin Urine Negative (Negative); Blood Urine Negative (Negative); Color Urine Yellow; Glucose Urine UA Negative (Negative); Ketones Urine Negative (Negative); Leukocyte Esterase Urine Negative (Negative); Nitrite Urine Negative (Negative); Protein Urine Negative (Negative); Specific Gravity Urine 1.008 (1.000-1.030); Urobilinogen Urine Negative (Negative)
[2022-02-26] MEDS ORDERED: MoRPHine SULFATE 4 MG/ML 1 ML CARP\\VIAL IV STA (23:33)
[2022-02-27] MEDS ORDERED: METOPROLOL TARTRATE 1 MG/ML VIAL IV STA (03:16)
[2022-02-27] MEDS ORDERED: METOPROLOL TARTRATE 100 MG TAB PO ONE (03:31)
[2022-02-27] MEDS ORDERED: ACETAMINOPHEN 500 MG TAB PO STA (03:48)
[2022-02-27] MEDS ORDERED: MoRPHine SULFATE 4 MG/ML 1 ML CARP\\VIAL IV STA (04:06)
[2022-02-27] MEDS ORDERED: ASPIRIN CHEW 324 MG PO STA (04:11)
--- NOTE | 2022-02-27 06:04 | History & Physical Report ---
Date of Service February 27, 2022 Assessment & Plan (1) Chronic knee pain: (2) Atrial paroxysmal tachycardia: (3) Troponin I above reference range: Plan: 67 y/o m Hx HTN, chronic anemia, hyponatremia, cirrhosis, paroxysmal atrial tachycardia, diastolic CHF, morbid obesity with osteoarthritis of the knees. The pt walks with a walker and suffered a fall onto his knees leading to large hematoma on the L. Despite this, he states that his R knee is causing considera ble pain and he is unable to bear weight on the R. Imaging demonstrated severe osteoarthritis and BL joint effusions. Labs were notable for a sodium of 128, mild anemia and a trop of 40. While in the ER, he had a few runs of tachycardia with a rate of 140. An EKG at the time appear to show sinus tach vs SVT. Initial EKG showed a sinus rhythm with frequent PVCs. 1) Knee pain and inability to ambulate - consult PT, OT, ortho. Pt would most benefit from weight loss. 2) Atrial tachycardia - this was noted on a previous admission where he was placed on a beta bloker. We will increaase the dose and consult cardiology. A repeat echo is ordered owing to an elevated trop. 3) hyponatremia - NS and continue Lasix. 4) HTN - cont metoprolol (increase dose), cont clonidine, cont benazapril 5) CHF - cont Lasix, Aldactone, benazepril 6) Chronic anemia - should avoid anticoagulation as possible as a GI AVM as the souce of blood loss is suspected. Anemia is stable. Full code Total time for this admit including review of labs, meds, imaging, records - discussion with pt in ER attending - 48 min History of Present Illness Chief Complaint: Cannot walk Primary Care Provider: Luis E Chavez MD 67 y/o m Hx HTN, chronic anemia, hyponatremia, cirrhosis, paroxysmal atrial tachycardia, diastolic CHF, morbid obesity with osteoarthritis of the knees. The pt walks with a walker and suffered a fall onto his knees leading to large hematoma on the L. Despite this, he states that his R knee is causing considerable pain and he is unable to bear weight on the R. Imaging demonstrated severe osteoarthritis and BL joint effusions. Labs were notable for a sodium of 128, mild anemia and a trop of 40. While in the ER, he had a few runs of tachycardia with a rate of 140. An EKG at the time appear to show sinus tach vs SVT. Initial EKG showed a sinus rhythm with frequent PVCs. PMH: 1) HTN 2) Paroxysmal atrial tachycardia 3) Morbidly obese 4) Hyponatremia 5) Cirrhosis 6) Osteoarthritis 7) Diastolic CHF Surgical: 1) Incarcerated hernia 2) Appendectomy 3) R meniscus surgery Social: Smokes a few cigarettes daily and drinks 2-3 beers HS Family: Mother is alive and well father - [place] Allergies Allergy/AdvReac Type Severity Reaction Status Date / Time No Known Allergies Allergy Verified 02/26/22 19:46 Home Medications Medication Instructions Recorded Confirmed Type Otc Nasal Decongestant 2 spry intranasal DAILY PRN 09/10/21 02/26/22 History Congestion metoprolol tartrate 100 mg tablet 100 mg PO BID #60 tabs 09/17/21 02/26/22 Rx pantoprazole 40 mg tablet,delayed 40 mg PO BID #60 tabs 09/17/21 02/26/22 Rx release benazepril 40 mg tablet 40 mg PO DAILY 02/26/22 02/26/22 History clonidine HCl 0.2 mg tablet 0.2 mg PO BID 02/26/22 02/26/22 History cyanocobalamin (vitamin B-12) 250 250 mcg PO DAILY 02/26/22 02/26/22 History mcg tablet cyclobenzaprine 5 mg tablet 5 mg PO DAILY PRN muscle spasm 02/26/22 02/26/22 History ferrous sulfate 325 mg (65 mg 325 mg PO DAILY 02/26/22 02/26/22 History iron) tablet folic acid 1 mg tablet 1 mg PO DAILY 02/26/22 02/26/22 History wviirjry-xil-ysoko acid 0.4 1 tab PO DAILY 02/26/22 02/26/22 History mg-lycopene 300 mcg-lutein 250 mcg tablet (Centrum Silver) spironolactone 25 mg tablet 25 mg PO DAILY 02/26/22 02/26/22 History Past Med/Surg History Medical History Acute hyponatremia Ascites CHF (congestive heart failure) Edema, peripheral Hypomagnesemia Transfusion history Surgical History History of appendectomy Family History Other Family history non-contributory Social History Smoking Status: Current every day smoker Tobacco Type: Cigarettes Cigarettes Per Day: 10; Second Hand Exposure: No; Hx Alcohol Use: Yes Alcohol type: hard liquor Hx Substance Use: No Preferred Language: Ukrainian Communication Ability: Effective Safety Specialist Required: No Beliefs That Will Affect Care: None Current Living Situation: Family How many Children do You have: 2 Feels Safe at Home: Yes Assistive Devices: Walker Review of Systems Review of Systems: Gen: Denies fevers, night sweats, rigors, fatigue, malaise, weight loss/gain ENT: Denies congestion, throat pain, hearing loss Eyes: Denies acute visual changes CV: Denies CP, palpitations Pulmonary: Denies SOB, cough, wheezing GI: Denies N/V, diarrhea, constipation Neuro: Denies acute or unilateral weakness, acute gait impairment, headache or acute visual changes Musculoskeletal: Severe pain in knees and cannot weight bear on R Endocrine: Denies polydipsia, polyuria Skin: Denies acute rashes or ulcers Physical Exam Physical Exam: General: Morbidly obese, middle-aged M, AAO x 3, no distress ENT: No erythema or exudates, no thrush Eyes: ANGELICA, EOMI Head and neck: Normocephalic, atraumatic, No JVD, neck is supple. Chest/heart: Nontender, S1,2, RRR, no murmurs, no gallops Lungs: CTAB, no wheezing or crackles Abdomen: Nontender, nondistended, BS+ Neuro: AAO x 3, speech is clear, no unilateral weakness or loss of sensation, coordination intact Musculoskeletal: + large hematoma on L, BP edema Skin: LE stasis, large hematoma over L knee Extremities: + Edema, + pulses Results & Data Results & Data ([facility]) Vital Signs (Past 12 Hours) Vital Signs Temp Pulse Pulse Resp BP BP Pulse Ox 02/27/22 04:42 103 H 19 144/88 H 96 02/27/22 04:00 118 H 16 175/108 H 97 02/27/22 03:30 120 H 20 147/91 H 95 02/27/22 03:18 141 H 127/95 02/27/22 01:11 130 H 18 158/108 H 96 02/26/22 23:34 98.1 F 90 18 136/73 97 02/26/22 22:32 100 H 131/96 97 02/26/22 22:05 98 02/26/22 21:42 97 02/26/22 21:41 131/96 02/26/22 18:34 104 H 17 96 02/26/22 18:30 26 H 02/26/22 18:00 98 H 23 98 02/26/22 18:00 155/106 H 02/26/22 17:59 101 H 18 96 02/26/22 17:59 165/93 H 02/26/22 18:08 102 H 19 98 O2 Del Method 02/27/22 04:42 02/27/22 04:00 02/27/22 03:30 Room Air 02/27/22 03:18 02/27/22 01:11 Room Air 02/26/22 23:34 Room Air 02/26/22 22:32 02/26/22 22:05 02/26/22 21:42 02/26/22 21:41 02/26/22 18:34 02/26/22 18:30 02/26/22 18:00 02/26/22 18:00 02/26/22 17:59 02/26/22 17:59 02/26/22 18:08 Room Air Code Status & VTE Plan VTE Prophylaxis Plan VTE Prophylaxis will be ordered: Yes PG Care Time/CCT Total # of Minutes Spent Total Time Spent with Patient: Total time spent is greater than 50% in coordination of care (as documented) at patient's floor/unit and/or counseling patient: Coding Level of Care Code INT OBSERVATION CARE 70M LVL 3 Diagnoses Chronic knee pain M25.561; M25.562; G89.29 Laterality: bilateral Atrial paroxysmal tachycardia I47.1 Troponin I above reference range R77.8 (1) Chronic knee pain Laterality: bilateral Qualified Code(s): M25.561 - Pain in right knee; M25.562 - Pain in left knee; G89.29 - Other chronic pain
[2022-02-27] MEDS: SODIUM CHLORIDE 0.9% 500 ML IV SCH ×2 (06:19→12:45)
[2022-02-27] MEDS: PANTOprazole 40 MG TAB PO SCH ×2 (09:44→20:07)
[2022-02-27] MEDS: FOLIC ACID 1 MG TAB PO SCH (09:45)
[2022-02-27] MEDS: CYANOCOBALAMIN (B-12) 500 MCG TABLET PO SCH (09:45)
[2022-02-27] MEDS: ASPIRIN 81 MG ECTAB PO SCH (09:45)
[2022-02-27] MEDS: METOPROLOL TARTRATE 100 MG TAB PO SCH ×2 (09:45→20:07)
[2022-02-27] MEDS: ENALAPRIL MALEATE 10 MG TAB PO SCH (09:45)
[2022-02-27] MEDS: SPIRONOLACTONE 25 MG TAB PO SCH (09:47)
[2022-02-27] MEDS: FERROUS SULFATE 325 MG TAB PO SCH (09:48)
[2022-02-27] MEDS: cloNIDine HCL 0.1 MG TAB PO SCH ×2 (09:49→20:08)
[2022-02-27] MEDS: CYCLOBENZAPRINE HCL 5 MG TAB PO PRN (13:40)
[2022-02-27] MEDS ORDERED: BUPIVACAINE/EPINEPHRINE 0.25% 1:200,000 30 ML VIAL INFIL ONE (14:24)
[2022-02-27] MEDS ORDERED: TRIAMCINOLONE ACET 40 MG/ML VIAL IA ONE (14:24)
--- NOTE | 2022-02-27 14:33 | Orthopedic Consultation ---
Date of Service February 27, 2022 Assessment & Plan (1) Osteoarthritis of knees, bilateral: X-rays demonstrate severe osteoarthritis of both knees. His right knee is really bad. Is ambulating with a walker because of it. He is never sought any medical treatment for his knees. He is morbidly obese with a BMI of 44. He is not a great operative candidate but he cannot live with knees like this either. He has been able to tolerate his right knee up until recently. I am going to give him a right knee intra-articular injection to help with some of the pain and order him in a right knee hinged knee brace. Hopefully this will give him some stability. We will try to get his right knee pain under control so that he is able to ambulate with a walker again. We can then schedule possible knee replacement surgery in the future. History of Present Illness Reason for Consultation: Contusion left knee, severe osteoarthritis bilateral knees. Requesting Physician: . Attending Physician: Lexa Traore MD Karlos is a pleasant 67-year-old male whose been dealing with chronic right knee pain. He uses a walker mostly because of his right knee. He lives with his mom outside of [place]. He has never sought any treatment for his right knee pain. Unfortunately his right knee has been giving out on him and he recently fell and banged his left knee. He sustained a contusion to his left knee. He came to the emergency room. Radiographs demonstrated severe osteoarthritis of both knees. He is to the point where he does not feel safe putting weight on his right knee. Orthopedics was consulted to evaluate and treat.. Allergies Allergy/AdvReac Type Severity Reaction Status Date / Time No Known Allergies Allergy Verified 02/26/22 19:46 Home Medications Medication Instructions Recorded Confirmed Type Otc Nasal Decongestant 2 spry intranasal DAILY PRN 09/10/21 02/26/22 History Congestion metoprolol tartrate 100 mg tablet 100 mg PO BID #60 tabs 09/17/21 02/26/22 Rx pantoprazole 40 mg tablet,delayed 40 mg PO BID #60 tabs 09/17/21 02/26/22 Rx release benazepril 40 mg tablet 40 mg PO DAILY 02/26/22 02/26/22 History clonidine HCl 0.2 mg tablet 0.2 mg PO BID 02/26/22 02/26/22 History cyanocobalamin (vitamin B-12) 250 250 mcg PO DAILY 02/26/22 02/26/22 History mcg tablet cyclobenzaprine 5 mg tablet 5 mg PO DAILY PRN muscle spasm 02/26/22 02/26/22 History ferrous sulfate 325 mg (65 mg 325 mg PO DAILY 02/26/22 02/26/22 History iron) tablet folic acid 1 mg tablet 1 mg PO DAILY 02/26/22 02/26/22 History eovzisue-jys-gdygm acid 0.4 1 tab PO DAILY 02/26/22 02/26/22 History mg-lycopene 300 mcg-lutein 250 mcg tablet (Centrum Silver) spironolactone 25 mg tablet 25 mg PO DAILY 02/26/22 02/26/22 History Past Med/Surg History Medical History Acute hyponatremia Ascites CHF (congestive heart failure) Edema, peripheral Hypomagnesemia Transfusion history Surgical History History of appendectomy Family History Other Family history non-contributory Social History Smoking Status: Current some day smoker Tobacco Type: Cigarettes Cigarettes Per Day: 10; Second Hand Exposure: No; Hx Alcohol Use: Yes Alcohol type: beer and hard liquor Hx Substance Use: No Preferred Language: Maori Communication Ability: Effective Balloon Tester Required: No Beliefs That Will Affect Care: None Current Living Situation: Parent How many Children do You have: 2 Feels Safe at Home: Yes Assistive Devices: Glasses and Walker Review of Systems All systems reviewed & are unremarkable except as noted in HPI & below. Physical Exam On physical examination of his left knee, there is a area of ecchymosis on the anterior medial aspect of the knee. There is a little bit of swelling of the knee. He has range of motion from 0 to 110 degrees. He has no gross instability. He has some pain over the distal femoral condyles On physical examination of the right knee he does have a significant varus deformity. He has range of motion from 5 to 110 degrees. He has pain over the distal femoral condyles.. Constitutional WD/WN, vitals as above Eyes PERRL, conjunctivae normal, anicteric sclerae ENMT external ear and nose normal, oropharynx normal Neck trachea midline, no thyromegaly Respiratory normal respiratory effort, lungs clear to auscultation Cardiovascular RRR, no murmur, no edema Gastrointestinal (Abdomen) normal bowel sounds, soft, nontender, no hepatosplenomegaly Skin no rashes, warm and dry Psychiatric A+Ox3, euthymic affect Results & Data Results & Data Laboratory Results . Diagnostic Findings X-rays of the left knee do show some advanced medial compartmental arthritis with a varus deformity and osteophyte formation. X-rays of the right knee show severe medial compartmental arthritis with collapse of the medial joint space and significant varus deformity.. PG Care Time/CCT Total # of Minutes Spent Total Time Spent with Patient: Total time spent is greater than 50% in coordination of care (as documented) at patient's floor/unit and/or counseling patient: Coding Level of Care Code 59597 Inpt Consult Level 4 Diagnoses Osteoarthritis of knees, bilateral M17.0
--- NOTE | 2022-02-27 15:20 | Electrocardiogram Report ---
Test Reason : Blood Pressure : / mmHG Vent. Rate : 104 BPM Atrial Rate : 104 BPM P-R Int : 198 ms QRS Dur : 102 ms QT Int : 350 ms P-R-T Axes : 039 009 025 degrees QTc Int : 460 ms Poor data quality, interpretation may be adversely affected Sinus tachycardia with frequent , and consecutive Premature ventricular complexes Cannot rule out Inferior infarct (cited on or before 26-FEB-2022) Abnormal ECG When compared with ECG of 12-SEP-2021 06:01, Premature ventricular complexes are now Present Criteria for Septal infarct are no longer Present Confirmed by Adam Leon ([id number]) on 02/27/2022 3:20:23 PM Referred By: REFERRED SELF Confirmed By:Adam Leon
--- NOTE | 2022-02-27 15:34 | Electrocardiogram Report ---
Test Reason : Blood Pressure : / mmHG Vent. Rate : 146 BPM Atrial Rate : 146 BPM P-R Int : 128 ms QRS Dur : 100 ms QT Int : 302 ms P-R-T Axes : 000 003 005 degrees QTc Int : 470 ms Sinus tachycardia with occasional Premature ventricular complexes RSR' or QR pattern in V1 suggests right ventricular conduction delay Inferior infarct (cited on or before 26-FEB-2022) Abnormal ECG When compared with ECG of 26-FEB-2022 17:58, (unconfirmed) No significant change was found Confirmed by Adam Leon ([id number]) on 02/27/2022 3:34:16 PM Referred By: REFERRED SELF Confirmed By:Adam Leon
--- NOTE | 2022-02-27 17:50 | History & Physical Bridge Note ---
Date of Service February 27, 2022 History & Physical Bridge Note I have examined the patient, reviewed the History & Physical and in the interval since the performance of the History & Physical I have noted the following changes of clinical significance: no changes noted Seen this AM. With continued right knee pain. Awaiting orthopedic eval for left knee hematoma and right knee OA. PT/OT. May need placement as prior GI note indicates he hasn't left house in several months due to pain in knees. Not concerned about ACS as troponins have been stable x 2.
[2022-02-27] MEDS: ACETAMINOPHEN 325 MG TAB PO PRN (19:23)
--- NOTE | 2022-02-28 07:24 | Orthopedic Progress Note ---
Date of Service February 28, 2022 Assessment & Plan (1) Osteoarthritis of knees, bilateral: I gave him a right knee intra-articular injection today. I am hopeful in that this calms down enough of his pain and symptoms that he can start walking with a walker again. Unfortunately, his leg is too large for an [id number]-[id number] knee brace. He would need a custom made knee brace. These can be very expensive and I am not confident enough that it would help his symptoms. I been in contact with the compounding scaler for other options such as a knee immobilizer when needed. He is not a great surgical candidate. Given his morbid obesity and his medical comorbidities, he would be a very high risk for right knee replacement surgery. I am happy to follow him in my office, but if it comes to a knee replacement, we might end up sending him to a tertiary care facility that has more resources to handle more complicated case. Hopefully the knee injection will help him. I am happy to see him in my office for follow-up at any time. My office phone number is [phone] Bossman Everett is seen and examined at bedside this morning. He is still dealing with a lot of knee pain. He was fitted for a knee brace yesterday, but due to the size of his leg he would need a custom knee brace. I have been in contact with the compounding scaler.. Review of Systems All systems reviewed & are unremarkable except as noted in HPI & below. Physical Exam On physical examination of the right knee, he has a large soft tissue envelope. He has significant varus deformity. His range of motion of 0 to 110 degrees.. Results & Data Results & Data Laboratory Results . Diagnostic Findings . PG Care Time/CCT Total # of Minutes Spent Total Time Spent with Patient: Total time spent is greater than 50% in coordination of care (as documented) at patient's floor/unit and/or counseling patient: Coding Level of Care Code 11994 Subseq Hosp Care Lvl 2 Diagnoses Osteoarthritis of knees, bilateral M17.0
[2022-02-28] MEDS: FERROUS SULFATE 325 MG TAB PO SCH (10:04)
[2022-02-28] MEDS: SPIRONOLACTONE 25 MG TAB PO SCH (10:05)
[2022-02-28] MEDS: PANTOprazole 40 MG TAB PO SCH ×2 (10:05→20:38)
[2022-02-28] MEDS: cloNIDine HCL 0.1 MG TAB PO SCH ×2 (10:05→20:38)
[2022-02-28] MEDS: METOPROLOL TARTRATE 100 MG TAB PO SCH ×2 (10:06→20:38)
[2022-02-28] MEDS: CYANOCOBALAMIN (B-12) 500 MCG TABLET PO SCH (10:06)
[2022-02-28] MEDS: FOLIC ACID 1 MG TAB PO SCH (10:06)
[2022-02-28] MEDS: ENALAPRIL MALEATE 10 MG TAB PO SCH (10:06)
[2022-02-28] MEDS: ASPIRIN 81 MG ECTAB PO SCH (10:07)
[2022-02-28] MEDS: ACETAMINOPHEN 325 MG TAB PO PRN ×2 (10:30→21:59)
--- NOTE | 2022-02-28 13:12 | Hospitalist Progress Note ---
Date of Service February 28, 2022 Assessment & Plan (1) Chronic knee pain: Plan: Due to severe OA. Right knee improved after injection of steroids on 02/27. - Discussed with orthopedics; he will need to wait for hematoma to heal before left knee can receive injection. - PT/OT (2) Atrial paroxysmal tachycardia: Plan: Noted on prior admissions. Discussed with cardiology this admission. - Continue beta-michael (3) CHF (congestive heart failure): Plan: Chronic diastolic CHF. No acute exacerbation at present. Echo in 08/2021 showed EF 60-65%. - Cont Lasix, Aldactone, benazepril (4) Hyponatremia: Plan: Chronic, with urine osms usually on the low side. Likely due to cirrhosis. - Monitor (5) Cirrhosis: Plan: Appears to be alcoholic and likely some VIGIL as well. Appears compensated presently. - Monitor (6) DVT prophylaxis: Plan: SCDs - Holding heparin for knee hematoma Admission and Anticipated Discharge Date Admission Date: February 27, 2022 Subjective Doing better today. Right knee is feeling much better after injection. Left knee still painful. Otherwise stable. Physical Exam Constitutional: WD/WN, vitals as above + morbidly obese Eyes: EOM intact bilaterally; no conjunctival abnormality ENMT: external ear and nose normal, oropharynx normal Neck: trachea midline, no thyromegaly normal visual inspection Respiratory: normal respiratory effort, lungs clear to auscultation no respiratory distress Cardiovascular: RRR, no murmur, no edema Gastrointestinal (Abdomen): Inspection/Auscultation: abdomen normal to inspection; abdomen not distended Musculoskeletal: no cyanosis or clubbing, extremities motor strength 5/5 Bruising over left knee. Skin: no rashes, warm and dry Neurologic: moves all extremities and awake Psychiatric: Orientation: alert, oriented to person and cooperative Results & Data Results & Data ([facility]) Vital Signs (Past 12 Hours) Vital Signs Temp Pulse Pulse Resp BP Pulse Ox O2 Del Method 02/28/22 11:29 36.7 C 72 18 125/79 94 Room Air 02/28/22 11:36 Room Air 02/28/22 10:46 74 02/28/22 07:42 36.4 C L 110 H 18 144/96 H 97 Room Air 02/28/22 03:43 36.7 C 78 18 158/70 H 98 Room Air PG Care Time/CCT Total # of Minutes Spent Total Time Spent with Patient: Total time spent is greater than 50% in coordination of care (as documented) at patient's floor/unit and/or counseling patient: Coding Level of Care Code 83283 Subseq Hosp Care Lvl 3 Diagnoses Chronic knee pain M25.561; M25.562; G89.29 Laterality: bilateral Atrial paroxysmal tachycardia I47.1 CHF (congestive heart failure) I50.9 Hyponatremia E87.1 Cirrhosis K74.60 DVT prophylaxis Z29.9 (1) Chronic knee pain Laterality: bilateral Qualified Code(s): M25.561 - Pain in right knee; M25.562 - Pain in left knee; G89.29 - Other chronic pain
[2022-03-01 06:18] LABS: Hematocrit (blood only) 28.1 % (40.1-51.0); Hemoglobin 9.3 g/dl (14.0-18.0); Mean Corpuscular Hemoglobin 29.9 pg (25.0-34.0); Mean Corpuscular Hgb Conc 33.1 g/dL (32.0-36.0); Mean Corpuscular Volume 90.4 fL (80.0-100.0); Mean Platelet Volume 11.8 fL (9.4-12.4); Platelet Count 168 K/uL (130-400); RDW Coefficient of Variation 14.5 % (11.5-14.5); RDW Standard Deviation 47.4 fL (36.4-46.3); Red Blood Count 3.11 M/uL (4.63-6.08); White Blood Count 6.29 K/ul (4.8-10.8)
[2022-03-01 06:41] LABS: Albumin Level 3.4 gm/dl (3.4-5.0); Bilirubin,Total 0.4 mg/dl (0.2-1.0); Creatinine Clr Calc Pharmacy 106.2 ml/min; Est GFR (African American) 84.7 ml/min; Est GFR (Non-African American) 73.1 ml/min; Globulin 3.4 gm/dl (2.5-4.0); Magnesium 1.6 mg/dl (1.7-2.4); Potassium 4.3 mmol/L (3.5-5.1); Total Protein 6.8 gm/dl (6.0-8.3)
[2022-03-01] MEDS: FERROUS SULFATE 325 MG TAB PO SCH (07:51)
[2022-03-01] MEDS: METOPROLOL TARTRATE 100 MG TAB PO SCH ×2 (07:51→20:10)
[2022-03-01] MEDS: PANTOprazole 40 MG TAB PO SCH ×2 (07:51→20:09)
[2022-03-01] MEDS: ASPIRIN 81 MG ECTAB PO SCH (07:51)
[2022-03-01] MEDS: cloNIDine HCL 0.1 MG TAB PO SCH ×2 (07:51→20:09)
[2022-03-01] MEDS: ENALAPRIL MALEATE 10 MG TAB PO SCH (07:52)
[2022-03-01] MEDS: CYANOCOBALAMIN (B-12) 500 MCG TABLET PO SCH (07:52)
[2022-03-01] MEDS: FOLIC ACID 1 MG TAB PO SCH (07:53)
[2022-03-01] MEDS: SPIRONOLACTONE 25 MG TAB PO SCH (07:53)
[2022-03-01] MEDS: CYCLOBENZAPRINE HCL 5 MG TAB PO PRN ×2 (08:27→20:13)
[2022-03-01] MEDS: ACETAMINOPHEN 325 MG TAB PO PRN ×2 (08:27→20:08)
--- NOTE | 2022-03-01 11:09 | XRay Report ---
XR shoulder LT min 2V routine HISTORY: 67 years-old Male Fall and shoulder pain . Acute left shoulder pain status post fall COMPARISON: Chest radiograph 09/10/2021 TECHNIQUE: 2 views of the left shoulder FINDINGS: Severe glenohumeral with mild AC joint osteoarthritis. There is no acute fracture or dislocation. 9.3 cm ovoid opacity is noted within the subacromial/subdeltoid distribution containing punctate calcifi cations. IMPRESSION: 1. Severe glenohumeral osteoarthritis without acute fracture or dislocation. 2. Findings suggestive of subacromial/subdeltoid bursitis containing punctate calcifications. ACT 112: Negative or not required by law. The above report was generated using voice recognition software. It may contain grammatical, syntax o r spelling errors. Electronically signed by: Jesse Oglesby M.D. 03/01/2022 11:07 AM
--- NOTE | 2022-03-01 16:06 | Hospitalist Progress Note ---
Date of Service March 01, 2022 Assessment & Plan (1) Chronic knee pain: Plan: Due to severe OA. Right knee improved after injection of steroids on 02/27. - Discussed with orthopedics; he will need to wait for hematoma to heal before left knee can receive injection. - PT/OT recommend rehab. Patient not sure if he is willing to go. (2) Atrial paroxysmal tachycardia: Plan: Noted on prior admissions. Discussed with cardiology this admission. - Continue beta-imchael (3) CHF (congestive heart failure): Plan: Chronic diastolic CHF. No acute exacerbation at present. Echo in 08/2021 showed EF 60-65%. - Cont Lasix, Aldactone, benazepril (4) Hyponatremia: Plan: Chronic, with urine osms usually on the low side. Likely due to cirrhosis. - Monitor -> Stable today at 130. (5) Cirrhosis: Plan: Appears to be alcoholic and likely some VIGIL as well. Appears compensated presently. - Monitor (6) DVT prophylaxis: Plan: SCDs - Holding heparin for knee hematoma Admission and Anticipated Discharge Date Admission Date: February 27, 2022 Subjective Doing well today. Some left shoulder pain. Otherwise, stable. Reports no fevers/chills, chest pain, shortness of breath, abdominal pain, nausea, or vomiting. Physical Exam Constitutional: WD/WN, vitals as above + morbidly obese Eyes: EOM intact bilaterally; no conjunctival abnormality ENMT: external ear and nose normal, oropharynx normal Neck: trachea midline, no thyromegaly normal visual inspection Respiratory: normal respiratory effort, lungs clear to auscultation no respiratory distress Cardiovascular: RRR, no murmur, no edema Gastrointestinal (Abdomen): Inspection/Auscultation: abdomen normal to inspection; abdomen not distended Musculoskeletal: no cyanosis or clubbing, extremities motor strength 5/5 Skin: no rashes, warm and dry Neurologic: moves all extremities and awake Psychiatric: Orientation: alert, oriented to person and cooperative Results & Data Results & Data ([facility]) Vital Signs (Past 12 Hours) Vital Signs Temp Pulse Pulse Resp BP Pulse Ox O2 Del Method 03/01/22 14:46 36.4 C L 83 20 127/84 98 Room Air 03/01/22 12:03 36.3 C L 83 16 100/83 97 Room Air 03/01/22 08:00 84 03/01/22 08:00 Room Air 03/01/22 07:21 36.6 C 89 18 120/85 97 Room Air PG Care Time/CCT Total # of Minutes Spent Total Time Spent with Patient: Total time spent is greater than 50% in coordination of care (as documented) at patient's floor/unit and/or counseling patient: Coding Level of Care Code 76459 Subseq Hosp Care Lvl 2 Diagnoses Chronic knee pain M25.561; M25.562; G89.29 Laterality: bilateral Atrial paroxysmal tachycardia I47.1 CHF (congestive heart failure) I50.9 Hyponatremia E87.1 Cirrhosis K74.60 DVT prophylaxis Z29.9 (1) Chronic knee pain Laterality: bilateral Qualified Code(s): M25.561 - Pain in right knee; M25.562 - Pain in left knee; G89.29 - Other chronic pain
[2022-03-01] MEDS ORDERED: oxyCODONE/ACETAMINOPHEN 5mg/325mg TAB PO STA (21:05)
--- NOTE | 2022-03-01 21:17 | Communication Note ---
Date of Service: March 01, 2022 Patient seen at the bedside for floor call complaint of new acute onset R shoulder pain. Patient was lying in bed reaching with his right arm over to the left side attempting to pull the blanket over when he experienced a sudden popping sensation in his right shoulder with shoulder pain diffusely over his R shoulder 10/10 pain. Patient said his baseline shoulder use with that arm is limited and this acute occurrence has worsened that due to the pain. Patient was asking if he could get steroid injection, however notified patient cannot do steroid injection at the current time. Pain is worse with external rotation and supination of the arm. Pain is mainly located at the anterior shoulder and does not radiate down the arm, no numbness or tingling. Range of motion at R shoulder limited due to pain in active motion, in tact with passive motion at the right shoulder; strength 5/5, +Yergason's. Most likely acute strain. Patient given Tylenol 650mg at 20:08. Ordered Percocet 5mg/325mg for pain.
[2022-03-01] MEDS ORDERED: IBUPROFEN 600 MG TAB PO PRN (22:29)
--- NOTE | 2022-03-02 07:04 | Orthopedic Progress Note ---
Date of Service March 02, 2022 Assessment & Plan (1) Osteoarthritis of knees, bilateral: His knee pain is improved. He can be weightbearing as tolerated. He needs a knee replacement surgery, unfortunately, he has not a good surgical candidate. The risks of complication is too high given his morbid obesity and his medical comorbidities. I am happy to treat him in the future with further cortisone injections. The soonest he can have another injection would be 3 months from now. At the end of the visit he mentioned that his shoulder was strained last night. I think we can treat this with some oral pain medications and I will see him in the office if it continues to bother him in the future. Bossman Everett was seen and examined at bedside this morning. Overall he is doing much better with his knee. He says he has no pain in his knee at this time. He has been able to stand and ambulate with a walker. He did strain his shoulder last night. He has no other complaints.. Review of Systems All systems reviewed & are unremarkable except as noted in HPI & below. Physical Exam On physical examination of the right knee, he does have a varus deformity. He has much less pain with range of motion. Examination of his shoulder shows that he is unable to do his own active forward elevation but I am able to do passive motion of his shoulder.. Results & Data Results & Data Laboratory Results . Diagnostic Findings . PG Care Time/CCT Total # of Minutes Spent Total Time Spent with Patient: Total time spent is greater than 50% in coordination of care (as documented) at patient's floor/unit and/or counseling patient: Coding Level of Care Code 27750 Subseq Hosp Care Lvl 2 Diagnoses Osteoarthritis of knees, bilateral M17.0
[2022-03-02] MEDS: CYCLOBENZAPRINE HCL 5 MG TAB PO PRN (08:35)
[2022-03-02] MEDS: DICLOFENAC SOD 1% GEL 100 GM TUBE EXT SCH ×2 (08:35→14:58)
[2022-03-02] MEDS: ENALAPRIL MALEATE 10 MG TAB PO SCH (08:36)
[2022-03-02] MEDS: METOPROLOL TARTRATE 100 MG TAB PO SCH (08:36)
[2022-03-02] MEDS: PANTOprazole 40 MG TAB PO SCH (08:36)
[2022-03-02] MEDS: cloNIDine HCL 0.1 MG TAB PO SCH (08:36)
[2022-03-02] MEDS: ASPIRIN 81 MG ECTAB PO SCH (08:36)
[2022-03-02] MEDS: FOLIC ACID 1 MG TAB PO SCH (08:36)
[2022-03-02] MEDS: FERROUS SULFATE 325 MG TAB PO SCH (08:45)
[2022-03-02] MEDS: CYANOCOBALAMIN (B-12) 500 MCG TABLET PO SCH (08:45)
[2022-03-02] MEDS: SPIRONOLACTONE 25 MG TAB PO SCH (08:45)
--- NOTE | 2022-03-02 14:12 | Discharge Summary ---
Date of Service March 02, 2022 Admission HPI Per Admitting Provider 67 y/o m Hx HTN, chronic anemia, hyponatremia, cirrhosis, paroxysmal atrial tachycardia, diastolic CHF, morbid obesity with osteoarthritis of the knees. The pt walks with a walker and suffered a fall onto his knees leading to large hematoma on the L. Despite this, he states that his R knee is causing considerable pain and he is unable to bear weight on the R. Imaging demonstrated severe osteoarthritis and BL joint effusions. Labs were notable for a sodium of 128, mild anemia and a trop of 40. While in the ER, he had a few runs of tachycardia with a rate of 140. An EKG at the time appear to show sinus tach vs SVT. Initial EKG showed a sinus rhythm with frequent PVCs. PMH: 1) HTN 2) Paroxysmal atrial tachycardia 3) Morbidly obese 4) Hyponatremia 5) Cirrhosis 6) Osteoarthritis 7) Diastolic CHF Surgical: 1) Incarcerated hernia 2) Appendectomy 3) R meniscus surgery Social: Smokes a few cigarettes daily and drinks 2-3 beers HS Family: Mother is alive and well father - [place] Principal Diagnosis Left patellar hematoma Right knee osteoarthritis Discharge Exam Constitutional WD/WN, vitals as above + morbidly obese Eyes EOM intact bilaterally; no conjunctival abnormality ENMT external ear and nose normal, oropharynx normal Neck trachea midline, no thyromegaly normal visual inspection Respiratory normal respiratory effort, lungs clear to auscultation no respiratory distress Cardiovascular RRR, no murmur, no edema Gastrointestinal (Abdomen) Inspection/Auscultation: abdomen normal to inspection; abdomen not distended Musculoskeletal no cyanosis or clubbing, extremities motor strength 5/5 Skin no rashes, warm and dry Neurologic moves all extremities and awake Psychiatric Orientation: alert, oriented to person and cooperative Discharge Data Allergies Allergy/AdvReac Type Severity Reaction Status Date / Time No Known Allergies Allergy Verified 02/26/22 19:46 Consultations 02/27/22 04:19 ED Decision to Admit Stat 02/27/22 05:52 Consult Orthopedic Surgery Routine Ordered Studies 02/26/22 18:09 CT head/brain wo con Stat Hospital Course (1) Chronic knee pain: Due to severe OA. Right knee improved after injection of steroids on 02/27. - Discussed with orthopedics; he will need to wait for hematoma to heal before left knee can receive injection. - PT/OT recommend rehab. Patient wants to go home to be with his mother who has dementia. On discharge, he was able to safely ambulate and had capacity to make that decision. (2) Atrial paroxysmal tachycardia: Noted on prior admissions. Discussed with cardiology this admission. - Continue beta-michael - No issues while admitted. (3) CHF (congestive heart failure): Chronic diastolic CHF. No acute exacerbation at present. Echo in 08/2021 showed EF 60-65%. - Cont Lasix, Aldactone, benazepril (4) Hyponatremia: Chronic, with urine osms usually on the low side. Likely due to cirrhosis. - Monitor -> Stable at 130 generally while admitted. (5) Cirrhosis: Appears to be alcoholic and likely some VIGIL as well. Appears compensated presently. - Monitor (6) DVT prophylaxis: SCDs - Holding heparin for knee hematoma Total Time Total Time Spent Total Time Spent (In Minutes): 34 Discharge Plan Discharge Items Patient Disposition: Home - Self-Care Reason For Visit: TACHYCARDIA, CAN'T WALK Discharge Diagnosis: Fall with left knee hematoma Right knee osteoarthritis Activity: Resume your previous activity Non-emergency contact: Primary Care Provider Call non-emergency contact if: your pain is not controlled Follow-up/Referrals: Harris Edwards DO [Physician] - 03/29/22 2:10 pm (Please call Dr. Edwards's office for follow up and potentially a left knee injection in 4 weeks or so.) Luis E Chavez MD [Primary Care Provider] - 03/09/22 2:15 pm Diet: Regular Addtl Attending Provider Instructions: Mr. Rea, You were admitted to the hospital after a fall at home with a large left knee hematoma. Dr. Edwards injected your right knee which also has arthritis, and this helped a lot. Please see him in a few weeks to check on your left knee and hopefully get a steroid injection for that one as well. Addtl Parimutuel Clerk Provider Instructions: ORTHOPEDIC INSTRUCTIONS Activity Recommendations: Weightbearing as tolerated. Follow-Up Visit: Follow-up with Dr. Edwards in a few weeks to discuss future treatment of the knee. If the injections and bracing are helping then we can continue with that. If they are not then we can consider knee replacement surgery. Please call my office to make an appointment for a time that works for you. Pending Studies at Discharge: No Stand-Alone Forms: My [facility], Smoking Cessation Medications and DC Order Prescriptions: Continued Otc Nasal Decongestant 2 spry intranasal DAILY PRN (Reason: Congestion) Rx Instructions: PER PT "GET AT [email or web address]". metoprolol tartrate 100 mg tablet 100 mg PO BID Qty: 60 1RF pantoprazole 40 mg tablet,delayed release (DR/EC) 40 mg PO BID Qty: 60 1RF cyanocobalamin (vitamin B-12) 250 mcg tablet 250 mcg PO DAILY spironolactone 25 mg tablet 25 mg PO DAILY clonidine HCl 0.2 mg tablet 0.2 mg PO BID ferrous sulfate 325 mg (65 mg iron) tablet 325 mg PO DAILY folic acid 1 mg tablet 1 mg PO DAILY benazepril 40 mg tablet 40 mg PO DAILY Centrum Silver 0.4 mg-300 mcg- 250 mcg tablet 1 tab PO DAILY cyclobenzaprine 5 mg tablet 5 mg PO DAILY PRN (Reason: muscle spasm) Discharge Orders: Discharge Order (Routine); Ordered 03/02/22 Ordered By: Lexa Traore Admission Data Admit Date/Time: 03/01/22 17:42 Attending Provider: Lexa Traore Admit Provider: Kyle Hastings Primary Care Provider: Luis E Chavez Other Providers: [facility] ; Kyle Hastings ; Harris Edwards Other Interventions: Discharge Summary Assessment (RN) Last Done: 03/02/22 12:34 Coding Level of Care Code D/C DAY MANAGEMENT >30 MINS Diagnoses Chronic knee pain M25.561; M25.562; G89.29 Laterality: bilateral Atrial paroxysmal tachycardia I47.1 CHF (congestive heart failure) I50.9 Hyponatremia E87.1 Cirrhosis K74.60 DVT prophylaxis Z29.9
== END 2022-03-02 15:25 | disposition home or self-care (01) | DRG 554 ==
LOC: ED 17:51 → 2S 17:51 → SUATTDRO 02-27 05:50 → 2S 02-27 07:43
DX: R26.2 Difficulty in walking, not elsewhere classified; S40.811A Abrasion of right upper arm, initial encounter; Y92.89 Other specified places as the place of occurrence of the external cause; I47.1 Supraventricular tachycardia; D64.9 Anemia, unspecified; S80.02XA Contusion of left knee, initial encounter; Z68.41 Body mass index [BMI] 40.0-44.9, adult; M25.512 Pain in left shoulder; M17.0 Bilateral primary osteoarthritis of knee; R79.89 Other specified abnormal findings of blood chemistry; E87.1 Hypo-osmolality and hyponatremia; E66.01 Morbid (severe) obesity due to excess calories; I50.32 Chronic diastolic (congestive) heart failure; F17.210 Nicotine dependence, cigarettes, uncomplicated; K74.60 Unspecified cirrhosis of liver